=== PATIENT | male | born 1970 | race Caucasian/White ===

== ENCOUNTER → 2020-03-13 09:08 | Outpatient (BNVA) | payer MEDICARE, MEDICAID, SELFPAY | PROVIDERS: Visit Provider Social Worker | DX: F43.12 Post-traumatic stress disorder, chronic (principal); F33.2 Major depressive disorder, recurrent severe without psychotic features | CPT/HCPCS: 90834 ==

== ENCOUNTER → 2020-04-05 07:32 | Outpatient (BNVA) | payer MEDICARE, MEDICAID, SELFPAY | PROVIDERS: Visit Provider Nurse Practitioner Psychiatric/Mental Health | DX: Z63.4 Disappearance and death of family member (principal); F33.2 Major depressive disorder, recurrent severe without psychotic features; F43.12 Post-traumatic stress disorder, chronic; F41.0 Panic disorder [episodic paroxysmal anxiety] | CPT/HCPCS: 99214 ==

== ENCOUNTER → 2020-08-13 07:32 | Outpatient (BNVA) | payer MEDICARE, MEDICAID, SELFPAY | PROVIDERS: Visit Provider Nurse Practitioner Psychiatric/Mental Health | DX: F33.2 Major depressive disorder, recurrent severe without psychotic features (principal); F43.12 Post-traumatic stress disorder, chronic; F41.0 Panic disorder [episodic paroxysmal anxiety]; Z63.4 Disappearance and death of family member | CPT/HCPCS: 99214 ==

== ENCOUNTER → 2020-08-28 07:35 | Outpatient (BNVA) | payer MEDICARE, MEDICAID, SELFPAY | PROVIDERS: Visit Provider Nurse Practitioner Psychiatric/Mental Health | DX: F33.2 Major depressive disorder, recurrent severe without psychotic features (principal); F43.12 Post-traumatic stress disorder, chronic; F41.0 Panic disorder [episodic paroxysmal anxiety]; Z63.4 Disappearance and death of family member; F41.1 Generalized anxiety disorder | CPT/HCPCS: 99214 ==

== ENCOUNTER → 2020-10-11 07:29 | Outpatient (BNVA) | payer MEDICARE, MEDICAID, SELFPAY | PROVIDERS: Visit Provider Nurse Practitioner Psychiatric/Mental Health | DX: F33.2 Major depressive disorder, recurrent severe without psychotic features (principal); F43.12 Post-traumatic stress disorder, chronic; F41.0 Panic disorder [episodic paroxysmal anxiety]; Z63.4 Disappearance and death of family member | CPT/HCPCS: 99214 ==

== ENCOUNTER → 2021-03-14 07:33 | Outpatient (BNVA) | payer MEDICARE, MEDICAID, SELFPAY | PROVIDERS: Visit Provider Nurse Practitioner Psychiatric/Mental Health | DX: F33.2 Major depressive disorder, recurrent severe without psychotic features (principal); F43.12 Post-traumatic stress disorder, chronic; F41.0 Panic disorder [episodic paroxysmal anxiety]; Z63.4 Disappearance and death of family member | CPT/HCPCS: 99214 ==

== ENCOUNTER → 2021-04-18 07:23 | Outpatient (BNVA) | payer MEDICARE, MEDICAID, SELFPAY | PROVIDERS: Visit Provider Nurse Practitioner Psychiatric/Mental Health | DX: F33.2 Major depressive disorder, recurrent severe without psychotic features (principal); F43.12 Post-traumatic stress disorder, chronic; F41.0 Panic disorder [episodic paroxysmal anxiety]; Z63.4 Disappearance and death of family member | CPT/HCPCS: 99214 ==

== ENCOUNTER → 2021-06-06 07:19 | Outpatient (BNVA) | payer MEDICARE, MEDICAID, SELFPAY | PROVIDERS: Visit Provider Nurse Practitioner Psychiatric/Mental Health | DX: F33.2 Major depressive disorder, recurrent severe without psychotic features (principal); F43.12 Post-traumatic stress disorder, chronic; F41.0 Panic disorder [episodic paroxysmal anxiety]; Z63.4 Disappearance and death of family member | CPT/HCPCS: 99214 ==

== ENCOUNTER 2021-11-20 15:09 | Emergency (ER) | payer MEDICARE, MEDICAID, SELFPAY ==
[2021-11-20 15:17] VITALS: BP 121/92; PULSE 85; RESP 22; TEMP 37; O2SAT 93; BMI 26.1
[2021-11-20 15:21] VITALS: BMI 26.1
[2021-11-20 15:30] VITALS: BP 121/92; PULSE 85; RESP 22; TEMP 37; O2SAT 93
--- NOTE | 2021-11-20 15:31 | XR_ITS ---
WS: [email or web address] XR ankle RT 2V 52931 REASON FOR EXAM: ankle pain FINDINGS: No fracture or focal bone lesion. The ankle mortise is relatively well preserved. No soft tissue abnormality. No significant interval change compared to 05/30/2017. XR/XR ankle RT 2V 25745 IMPRESSION: No acute abnormality.
--- NOTE | 2021-11-20 15:31 | XR_ITS ---
WS: [email or web address] XR tibia fibula RT 2V 65652 REASON FOR EXAM: pain R tib/fib proximal FINDINGS: No fracture or focal bone lesion. No periosteal reaction. No soft tissue abnormality. XR/XR tibia fibula RT 2V 68363 IMPRESSION: No significant abnormality.
--- NOTE | 2021-11-20 15:31 | XR_ITS ---
WS: [email or web address] XR chest 2V* [id number] REASON FOR EXAM: chest pain FINDINGS: The chest is unchanged compared to 05/30/2017. The heart and mediastinum are within normal limits. Calcified granulomatous disease is seen bilaterally. No acute pulmonary parenchymal or pleural abnormality is identified. The bony thorax is intact. XR/XR chest 2V* [id number] IMPRESSION: No acute chest abnormality.
--- NOTE | 2021-11-20 15:31 | XR_ITS ---
WS: [email or web address] XR knee RT 1-2V 35776 REASON FOR EXAM: knee pain FINDINGS: No fracture or focal bone lesion. The medial knee joint spaces mildly narrowed. No significant osteophytic spurring or subchondral bony change. Mild narrowing of the lateral knee joint space with small marginal osteophytes. Mild narrowing of the patellofemoral joint space with small osteophytes of the patella and femur. Examination is unchanged compared to previous study of 05/30/2017. XR/XR knee RT 1-2V 84553 IMPRESSION: No acute abnormality. Mild osteoarthropathy stable compared to 05/30/2017.
--- NOTE | 2021-11-20 15:31 | ECG_ITS ---
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
--- NOTE | 2021-11-20 15:33 | CTR_ITS ---
PROCEDURE INFORMATION: Exam: CT Abdomen And Pelvis With Contrast Exam date and time: 11/20/2021 3:33 PM Age: 51 years old Clinical indication: Nausea and vomiting and other: Blood in stool; Abdominal pain; Localized; Right; Prior surgery; Surgery type: Back, appy; Additional info: R sided abd pain TECHNIQUE: Imaging protocol: Computed tomography of the abdomen and pelvis with contrast. Radiation optimization: All CT scans at this facility use at least one of these dose optimization techniques: automated exposure control; mA and/or kV adjustment per patient size (includes targeted exams where dose is matched to clinical indication); or iterative reconstruction. Contrast material: OMNI 300; Contrast volume: 95 ml; Contrast route: INTRAVENOUS (IV); COMPARISON: No relevant prior studies available. RADIATION DOSE METRICS: Total DLP (mGy-cm): 1368.75 FINDINGS: Lungs: Lung bases are clear. Liver: The liver is normal. Gallbladder and bile ducts: The gallbladder is decompressed. The wall is diffusely thickened and hyperdense. Possible hyperplastic cholecystosis. There is no pericholecystic edema. There is no intrahepatic or extrahepatic bile duct dilation. No sign of acute cholecystitis. Pancreas: The pancreas is unremarkable. Spleen: The spleen is unremarkable. Adrenal glands: The adrenal glands are unremarkable. Kidneys and ureters: The kidneys are unremarkable. No hydronephrosis or stones. No ureteral dilation. Stomach and bowel: The stomach is unremarkable. The small bowel is nondilated. The colon is unremarkable. Appendix: The appendix is absent. Intraperitoneal space: There is no free air or significant intraperitoneal free fluid. Vasculature: There is moderate aortic atherosclerotic disease. The portal, splenic and superior mesenteric veins are patent. Lymph nodes: There is no lymphadenopathy in the retroperitoneum, mesentery, pelvis or inguinal regions. Urinary bladder: There is a tiny punctate calcification in the dependent portion of the bladder. See series 2, image 78. There is mild diffuse bladder wall thickening suggesting muscular hypertrophy. Reproductive: The prostate and seminal vesicles are unremarkable. Bones/joints: There are chronic bilateral L5 pars defects without spondylolisthesis. Severe degenerative disease at both hips. The pelvis and proximal femora are intact. Soft tissues: The abdominal wall is intact. CT/CT abdomen pelvis w con* [id number] IMPRESSION: 1. No acute findings. 2. Incidental findings above.
--- NOTE | 2021-11-20 15:43 | W.ED.GENADLT ---
HPI - General Adult General: Chief complaint: Abdominal Pain Stated complaint: R ABD PAIN Time Seen by Provider: 11/20/21 15:12 History of Present Illness: HPI narrative: Patient is a 51-year-old male with a history of DM2 who presents emergency room after an episode of fall at home at 1:30 PM. She complains of right knee tib-fib and ankle pain. Patient tells me that he did not hit his head. Patient is on a blood thinner. Patient has not had any issue with ambulation on the R leg after the all. In addition, patient reports 2 weeks of right-sided abdominal pain radiating to his chest associated with nausea/vomiting worse with meal intake.. Patient has no exertional chest pain, shortness breath, palpitation, pleuritic chest pain, diarrhea, melena masses. Patient denies any prior history cardiac issues, family history of cardiac disease, no history of VTE's, no history of smoking. Onset: 2 hrs ago acutely (R knee/R leg/R ankle pain), and 2 weeks of R sided abdominal pain w/ N/V Duration:ongoing Location:home Severity:moderate Associated symptoms: Reports nausea and vomiting; Deny chest pain, dyspnea, rash or palpitations Review of Systems Const: Denies: fever(s) or chills Eyes: Denies: change in vision ENMT: Denies: mouth pain Card: Denies: chest pain or palpitations Resp: Denies: dyspnea or non-productive cough GI: Reports: abdominal pain (R abdominal/flank), nausea and vomiting; Denies: diarrhea : Denies: dysuria Musc: Reports: extremity pain (+R knee, R leg, and R ankle pain) Skin/Breast: Denies: rash or new lesions Neuro: Denies: weakness in extremities Psych: Reports: other (Normal mood) Manjinder/Lymph: Denies: easy bruising PFSH ED PFSH: Medical History Bereavement Sudden loss of mother on 03/18/20 Loss of brother Chronic post-traumatic stress disorder (PTSD) Major depressive disorder, recurrent severe without psychotic features Panic disorder without agoraphobia Psychiatric care Family History Denies family history of CAD (coronary artery disease) Social History Smoking and tobacco status: current every day smoker Alcohol intake: never Physical Exam Const: COMMON NORMALS: alert HENMT: COMMON NORMALS: atraumatic HEAD & SCALP: atraumatic MOUTH: moist mucous membranes not abnormal Eye: COMMON NORMALS: EOMs intact bilaterally and conjunctivae normal CONJUNCTIVA: Yes conjunctivae normal Neck/C-Spine: COMMON NORMALS: full ROM and supple Resp: COMMON NORMALS: normal respiratory effort and clear to auscultation bilaterally AUSCULTATION: clear to auscultation bilaterally Cardio: COMMON NORMALS: regular rate RATE: regular rate GI: COMMON NORMALS: Soft to palpation; negative for non-tender (mild R flank tenderness to palpation, no guarding or rebound tenderness) PALPATION: Yes Soft to palpation Extremity: COMMON NORMALS: full ROM (full ROM of the R knee and R ankle) NARRATIVE EXTREMITY EXAM: + Mild tenderness to palpation over the right knee, no knee ecchymosis or swelling noted on the right side, mild proximal tibial tenderness to palpation plus mild medial and lateral ankle tenderness palpation no foot tenderness palpation, neurovascular exam intact in the right lower extremity. No obvious gross deformity. No obvious bruises. Range of motion of the right hip intact. Neuro: SENSORIUM/ORIENTATION: Yes alert MOTOR EXAM: No Abnormal motor strength present and Other motor observations present (no focal motor deficits) Psych: COMMON NORMALS: speech normal SPEECH: Yes normal speech MOOD & AFFECT: Yes euthymic mood Course Vital Signs: Vital signs: Vital Signs Temperature 98.6 F 11/20/21 18:27 Pulse Rate 81 11/20/21 18:27 Respiratory Rate 20 H 11/20/21 18:27 Blood Pressure 121/92 11/20/21 18:27 Pulse Oximetry 95 11/20/21 18:27 MDM - General Adult MDM Narrative: Medical decision making narrative: 51-year-old male presented to the emergency room with complaints of fall with complaints of right knee tib-fib ankle pain. Patient was has right-sided flank pain. Work-up today including x-rays negative for any acute finding. Lab work-up did not show any signs of acute pathology. CT abdomen pelvis also negative for any acute pathology. Delta troponin less than 5, EKG is nonischemic. No suspicion for ACS at this time for his R sided abd pain radiating to the chest. Patient tolerated p.o. without difficulty in emergency room. Patient is instructed return to the ED for any worsening pain as he may need another x-ray to rule out occult fracture. Disposition: Discharge. Patient counseled regarding diagnostic impression, treatment plan. Patient given ED strict return precautions to return for continuation, worsening, or development of new symptoms. Instructed to f/u w/ PCP regarding symptoms today. Patient verbalized understanding. Lab Data: Labs: Lab Results 11/20/21 11/20/21 11/20/21 16:01 16:01 16:01 WBC 10.0 10^3/uL 10^3 /uL (4.0-10.0) RBC 4.97 10^6/uL 10^6 /uL (4.1-5.3) Hgb 15.9 g/dL g/dL (11.7-16.6) Hct 47.7 % % (42.0-52.0) MCV 96.0 fl H fl (80-94) MCH 32.0 pg pg (28.0-34.0) MCHC 33.3 g/dL g/dL (30.0-36.0) RDW 13.2 % % (12.1-15.1) Plt Count 224 10^3/cmm 10^3 /cmm (130-400) MPV 10.4 fL fL (7.4-10.4) Neut % (Auto) 61.1 % % Lymph % (Auto) 26.3 % % [place] % (Auto) 6.8 % % Eos % (Auto) 4.3 % % Baso % (Auto) 1.0 % % Neut # (Auto) 6.13 10^3/uL 10^3 /uL (1.8-7.7) Lymph # (Auto) 2.6 10^3/uL 10^3/ uL (0.8-4.8) [place] # (Auto) 0.7 10^3/uL 10^3/ uL (0.2-0.9) Eos # (Auto) 0.4 10^3/uL 10^3/ uL (0.0-0.8) Baso # (Auto) 0.1 10^3/uL 10^3/ uL (0.0-0.1) Nucleated RBC % (a uto) 0 % % Nucleated RBCs # 0.0 /100WBC /100W BC Sodium 137 mmol/L mmol/L (136-145) Potassium 4.5 mmol/L mmol/L (3.5-5.1) Chloride 102 mmol/L mmol/L (98-107) Carbon Dioxide 22 mmol/L mmol/L (22-29) Anion Gap 17.5 (5-19) BUN 6 mg/dL mg/dL (6-20) Creatinine 0.6 mg/dL L mg/dL (0.7-1.2) GFR Calculation 142.0 mL/min H mL /min (90-130) Glucose 128 mg/dL H mg/dL (65-115) Calculated Osmolal ity 283 mOsm/kg L mOs m/kg (285-295) Calcium 8.3 mg/dL L mg/dL (8.5-10.5) Total Bilirubin 0.2 mg/dL mg/dL (0.15-1.2) AST 20 U/L U/L (0-40) ALT 17 U/L U/L (0-41) Alkaline Phosphata se 96 IU/L IU/L (40-130) Troponin T Gen 5 n g/L 20 ng/L H ng/L (0-15) Troponin T Baselin e Total Protein 6.5 g/dL L g/dL (6.6-8.7) Albumin 3.5 g/dL g/dL (3.5-5.2) Globulin 3.0 g/dL g/dL (1.3-4.6) Lipase 34 U/L U/L (13-60) 11/20/21 17:12 WBC RBC Hgb Hct MCV MCH MCHC RDW Plt Count MPV Neut % (Auto) Lymph % (Auto) [place] % (Auto) Eos % (Auto) Baso % (Auto) Neut # (Auto) Lymph # (Auto) [place] # (Auto) Eos # (Auto) Baso # (Auto) Nucleated RBC % (a uto) Nucleated RBCs # Sodium Potassium Chloride Carbon Dioxide Anion Gap BUN Creatinine GFR Calculation Glucose Calculated Osmolal ity Calcium Total Bilirubin AST ALT Alkaline Phosphata se Troponin T Gen 5 n g/L Troponin T Baselin e 23 ng/L H ng/L (0-15) Total Protein Albumin Globulin Lipase Imaging Data^: Other Imaging: Radiologist's impression: [place] [address] [address].[place], [place] [address]PAam ReportSigned Patient: Mert Spain #: [id number]: 1970Acct#:[id number]/Sex: 51 / MADM Date: 11/20/21Loc: ERRoom/Bed:Attending Dr: Ordering Provider/Ordering MD: Leydi Iyer MD Date of Service: 11/20/21 Procedure(s): XR tibia fibula RT 2V 12935 Accession Number(s): [id number] Report Number: [id number] WS: [email or web address] XR tibia fibula RT 2V 27341 REASON FOR EXAM: pain R tib/fib proximal FINDINGS: No fracture or focal bone lesion. No periosteal reaction. No soft tissue abnormality. XR/XR tibia fibula RT 2V 00077 IMPRESSION: No significant abnormality. Dictated By:Lane Love Jr MDSigned By:Lane Love Jr MDSigned Date/Time:11/20/21 1558DD/ [address] [facility] [address].[place], [place] [address]KRwr ReportSigned Patient: Mert Spain #: [id number]: 1970Acct#:[id number]/Sex: 51 / MADM Date: 11/20/21Loc: ERRoom/Bed:Attending Dr: Ordering Provider/Ordering MD: Leydi Iyer MD Date of Service: 11/20/21 Procedure(s): XR knee RT 1-2V 51774 Accession Number(s): [id number] Report Number: [id number] WS: [email or web address] XR knee RT 1-2 15034 REASON FOR EXAM: knee pain FINDINGS: No fracture or focal bone lesion. The medial knee joint spaces mildly narrowed. No significant osteophytic spurring or subchondral bony change. Mild narrowing of the lateral knee joint space with small marginal osteophytes. Mild narrowing of the patellofemoral joint space with small osteophytes of the patella and femur. Examination is unchanged compared to previous study of 05/30/2017. XR/XR knee RT 1-2V 36801 IMPRESSION: No acute abnormality. Mild osteoarthropathy stable compared to 05/30/2017. Dictated By:Lane Love Jr MDSigned By:Lane Love Jr MDSigned Date/Time:11/20/21 1556DD/ [address], [place] [address]VIln ReportSigned Patient: Mert Spain #: [id number]: 1970Acct#:[id number]/Sex: 51 / MADM Date: 11/20/21Loc: ERRoom/Bed:Attending Dr: Ordering Provider/Ordering MD: Leydi Iyer MD Date of Service: 11/20/21 Procedure(s): XR chest 2V* 37455 Accession Number(s): [id number] Report Number: [id number] WS: [email or web address] XR chest 2V* 86600 REASON FOR EXAM: chest pain FINDINGS: The chest is unchanged compared to 05/30/2017. The heart and mediastinum are within normal limits. Calcified granulomatous disease is seen bilaterally. No acute pulmonary parenchymal or pleural abnormality is identified. The bony thorax is intact. XR/XR chest 2V* 17407 IMPRESSION: No acute chest abnormality. Dictated By:Lane Love Jr MDSigned By:Lane Love Jr MDSigned Date/Time:11/20/21 1546DD/ [address], [place] [address]XNxo ReportSigned Patient: Mert Spain #: [id number]: 1970Acct#:[id number]/Sex: 51 / MADM Date: 11/20/21Loc: ERRoom/Bed:Attending Dr: Ordering Provider/Ordering MD: Leydi Iyer MD Date of Service: 11/20/21 Procedure(s): XR ankle RT 2V 92668 Accession Number(s): [id number] Report Number: [id number] WS: [email or web address] XR ankle RT 2V 10818 REASON FOR EXAM: ankle pain FINDINGS: No fracture or focal bone lesion. The ankle mortise is relatively well preserved. No soft tissue abnormality. No significant interval change compared to 05/30/2017. XR/XR ankle RT 2V 13379 IMPRESSION: No acute abnormality. Dictated By:Lane Love Jr MDSigned By:Lane Love Jr MDSigned Date/Time:11/20/21 1602DD/ 15[address] [facility] [place], [place] [address]ZJ Scan ReportSigned Patient: Mert Spain MUnit #: [id number]: 1970Acct#:[id number]/Sex: 51 / MADM Date: 11/20/21Loc: ERRoom/Bed:Attending Dr: Ordering Provider/Ordering MD: Leydi Iyer MD Date of Service: 11/20/21 Procedure(s): CT abdomen pelvis w con* 26247 Accession Number(s): [id number] Report Number: [id number] PROCEDURE INFORMATION: Exam: CT Abdomen And Pelvis With Contrast Exam date and time: 11/20/2021 3:33 PM Age: 51 years old Clinical indication: Nausea and vomiting and other: Blood in stool; Abdominal pain; Localized; Right; Prior surgery; Surgery type: Back, appy; Additional info: R sided abd pain TECHNIQUE: Imaging protocol: Computed tomography of the abdomen and pelvis with contrast. Radiation optimization: All CT scans at this facility use at least one of these dose optimization techniques: automated exposure control; mA and/or kV adjustment per patient size (includes targeted exams where dose is matched to clinical indication); or iterative reconstruction. Contrast material: OMNI 300; Contrast volume: 95 ml; Contrast route: INTRAVENOUS (IV); COMPARISON: No relevant prior studies available. RADIATION DOSE METRICS: Total DLP (mGy-cm): 1368.75 FINDINGS: Lungs: Lung bases are clear. Liver: The liver is normal. Gallbladder and bile ducts: The gallbladder is decompressed. The wall is diffusely thickened and hyperdense. Possible hyperplastic cholecystosis. There is no pericholecystic edema. There is no intrahepatic or extrahepatic bile duct dilation. No sign of acute cholecystitis. Pancreas: The pancreas is unremarkable. Spleen: The spleen is unremarkable. Adrenal glands: The adrenal glands are unremarkable. Kidneys and ureters: The kidneys are unremarkable. No hydronephrosis or stones. No ureteral dilation. Stomach and bowel: The stomach is unremarkable. The small bowel is nondilated. The colon is unremarkable. Appendix: The appendix is absent. Intraperitoneal space: There is no free air or significant intraperitoneal free fluid. Vasculature: There is moderate aortic atherosclerotic disease. The portal, splenic and superior mesenteric veins are patent. Lymph nodes: There is no lymphadenopathy in the retroperitoneum, mesentery, pelvis or inguinal regions. Urinary bladder: There is a tiny punctate calcification in the dependent portion of the bladder. See series 2, image 78. There is mild diffuse bladder wall thickening suggesting muscular hypertrophy. Reproductive: The prostate and seminal vesicles are unremarkable. Bones/joints: There are chronic bilateral L5 pars defects without spondylolisthesis. Severe degenerative disease at both hips. The pelvis and proximal femora are intact. Soft tissues: The abdominal wall is intact. CT/CT abdomen pelvis w con* [id number] IMPRESSION: 1. No acute findings. 2. Incidental findings above. Dictated By:Gordo Bertrandigned By:Gordo Bertrandigned Date/Time:11/20/21 1727DD/ 1533 Discharge Plan Discharge Patient Disposition: Home Clinical Impression: Acute knee pain, Abdominal pain, Acute ankle pain, Acute leg pain, Chest pain Condition: Stable Prescriptions: New acetaminophen 500 mg tablet 500 mg PO Q6H PRN (Reason: pain) 5 Days Qty: 20 RF: 0 orphenadrine citrate 100 mg tablet extended release 100 mg PO BID PRN (Reason: pain) 10 Days Qty: 20 RF: 0 Maalox Advanced 1,000-60 mg tablet,chewable 1 tab PO TID PRN (Reason: abdominal pain) 7 Days Qty: 21 RF: 0 Pepcid 20 mg tablet 20 mg PO BID PRN (Reason: abdominal pain) 10 Days Qty: 20 RF: 0 No Action morphine 60 mg tablet extended release 60 mg PO Q12H RF: 0 morphine 15 mg tablet extended release 15 mg PO Q12H RF: 0 gabapentin 800 mg tablet 800 mg PO QID RF: 0 metoprolol tartrate 50 mg tablet 50 mg PO BID RF: 0 tamsulosin [Flomax] 0.4 mg capsule 0.4 mg PO DAILY RF: 0 fluoxetine [Prozac] 40 mg capsule 40 mg PO QAM Qty: 30 RF: 3 prazosin 2 mg capsule 8 mg PO .QHS Qty: 120 RF: 3 quetiapine [Seroquel] 400 mg tablet 400 mg PO .9 pm Qty: 30 RF: 3 quetiapine [Seroquel] 100 mg tablet 100 mg PO BID Qty: 60 RF: 3 Discharge Orders: Discharge ED (Routine); Ordered 11/20/21 Ordered By: Leydi Iyer Discharge Diet: Advance as tolerated Discharge Activity: Resume usual activity Patient Instructions: Abdominal Pain (ED), Knee Pain (ED) Activity Restrictions/Additional Instructions: Our case folder will have you follow-up with a primary care doctor in the next few days. You would be expected to have a phone call with our case folder who will put you on the schedule. Take your medicine as instructed. Come back to the emergency room have any worsening chest pain, abdominal pain, knee pain, or any new or concerning complaints. Stand Alone Forms: Work/School Release Coding Level of Care Code ED Industrial Roofer for Maria Esther Fwrosa Exam Comprehensive
[2021-11-20 16:07] LABS: Basophils # 0.1 10^3/uL (0.0-0.1); Eosinophils # 0.4 10^3/uL (0.0-0.8); Eosinophils % 4.3 %; Hematocrit 47.7 % (42.0-52.0); Hemoglobin 15.9 g/dL (11.7-16.6); Lymphocytes # 2.6 10^3/uL (0.8-4.8); Lymphocytes % 26.3 %; Mean Corpuscular HGB Conc 33.3 g/dL (30.0-36.0); Mean Platelet Volume 10.4 fL (7.4-10.4); Monocytes # 0.7 10^3/uL (0.2-0.9); Monocytes % 6.8 %; Neutrophils # 6.13 10^3/uL (1.8-7.7); Neutrophils % 61.1 %; Nucleated Red Blood Cells % 0 %; Platelet Count 224 10^3/cmm (130-400); Red Blood Count 4.97 10^6/uL (4.1-5.3); Red Cell Distribution Width 13.2 % (12.1-15.1)
[2021-11-20] MEDS: lidocaine 2% viscous 15 ML, aluminum-mag hydrox-simethicon 30 ML, sucralfate oral liq 1 GM PO (16:13)
[2021-11-20] MEDS: acetaminophen 500 mg Tablet PO (16:14)
[2021-11-20 16:48] LABS: Troponin T (5th) Once 20 ng/L (0-15)
[2021-11-20 16:49] LABS: Alanine Aminotransferase 17 U/L (0-41); Albumin Level 3.5 g/dL (3.5-5.2); Alkaline Phosphatase 96 IU/L (40-130); Blood Urea Nitrogen 6 mg/dL (6-20); Calcium 8.3 mg/dL (8.5-10.5); Carbon Dioxide 22 mmol/L (22-29); Chloride 102 mmol/L (98-107); Glucose 128 mg/dL (65-115); Lipase 34 U/L (13-60); Osmolality Calculated 283 mOsm/kg (285-295); Sodium 137 mmol/L (136-145); Total Bilirubin 0.2 mg/dL (0.15-1.2); Total Protein 6.5 g/dL (6.6-8.7)
[2021-11-20 16:52] LABS: Creatinine Clr Calc Pharmacy 148.8426
[2021-11-20 16:53] LABS: Anion Gap 17.5 (5-19); Aspartate Amino Transferase 20 U/L (0-40); Potassium 4.5 mmol/L (3.5-5.1)
[2021-11-20] MEDS: iohexol 300 mg/mL 100 mL Btl IV (16:55)
--- NOTE | 2021-11-20 17:07 | ECG_ITS ---
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
[2021-11-20 17:45] LABS: Troponin(5th) Baseline 23 ng/L (0-15)
[2021-11-20 18:27] VITALS: BP 121/92; PULSE 81; RESP 20; TEMP 37; O2SAT 95
== END 2021-11-20 18:29 | disposition home or self-care (01) ==
PROVIDERS: Emergency Provider Emergency Medicine
DX: R10.9 Unspecified abdominal pain (principal); R07.9 Chest pain, unspecified; M25.561 Pain in right knee; M25.571 Pain in right ankle and joints of right foot; M79.604 Pain in right leg; F17.210 Nicotine dependence, cigarettes, uncomplicated
CPT/HCPCS: 36415; 71046; 73560; 73590; 73600; 74177; 80053; 83690; 84484; 85025; 93005; 99283; Q9967

== ENCOUNTER → 2021-12-19 07:43 | Outpatient (BNVA) | payer MEDICARE, MEDICAID, SELFPAY | PROVIDERS: Visit Provider Nurse Practitioner Psychiatric/Mental Health | DX: F33.2 Major depressive disorder, recurrent severe without psychotic features (principal); F43.12 Post-traumatic stress disorder, chronic; F41.0 Panic disorder [episodic paroxysmal anxiety]; Z79.899 Other long term (current) drug therapy; Z63.4 Disappearance and death of family member | CPT/HCPCS: 99214 ==

== ENCOUNTER → 2022-03-13 06:58 | Outpatient (BNVA) | payer MEDICARE, MEDICAID, SELFPAY | PROVIDERS: Visit Provider Nurse Practitioner Psychiatric/Mental Health | DX: F43.12 Post-traumatic stress disorder, chronic (principal); Z63.4 Disappearance and death of family member; Z79.899 Other long term (current) drug therapy; F33.2 Major depressive disorder, recurrent severe without psychotic features; F41.0 Panic disorder [episodic paroxysmal anxiety] | CPT/HCPCS: 99214 ==

== ENCOUNTER 2022-08-03 16:10 | Emergency (ER) | payer MEDICARE, MEDICAID, SELFPAY ==
[2022-08-03 16:15] VITALS: BP 118/88; PULSE 79; RESP 18; TEMP 36.8; O2SAT 97; BMI 26.1
--- NOTE | 2022-08-03 16:34 | USR_ITS ---
PROCEDURE INFORMATION: Exam: US Scrotum Exam date and time: 08/03/2022 5:09 PM Age: 52 years old Clinical indication: Groin pain; Prior surgery; Surgery date: 6+ months; Surgery type: Unknown; Additional info: Testicle pain TECHNIQUE: Imaging protocol: Real-time ultrasound of the scrotum and contents with color Doppler and image documentation. COMPARISON: CT abdomen pelvis w con* [id number] 11/20/2021 4:53 PM FINDINGS: Right testicle: Hypoechoic echogenicity without focal lesions. No mass. No torsion. Normal vascular flow. Right testicle measures 3.9 cm x 3.9 cm x 2.8 cm Left testicle: A small cyst 5.8 mm x 5.4 mm x 7.4 mm No mass. No torsion. Normal vascular flow. Left measures 2.4 cm x 2 cm x 2.8 cm Epididymides: Small heterogenous Left 6.6 mm x 6.5 mm x 5.3 mm. Right epididymis 10.6 mm x 7.2 mm x 11 mm Scrotum: Unremarkable US/US scrotum [id number] IMPRESSION: 1. Benign cyst left testicle. 2. Asymmetric size the right testicle is larger than the left. 3. Negative bilateral epididymis
[2022-08-03 17:00] LABS: Add Urine Microscopic? NO; Charge for UA Resulting for Rev
[2022-08-03 17:01] LABS: Bilirubin Urine Neg (Negative); Blood Urine Neg (Negative); Glucose Urine UA Norm (Normal); Ketones Urine Negative (Negative); Leukocyte Esterase Urine Negative (Negative); Nitrate Urine Negative (Negative); Protein Urine Neg (Negative); Specific Gravity, Urine 1.015 (1.005-1.030); Urine Appearance Clear (CLEAR); Urine Color Yellow (Yellow); Urobilinogen Urine Norm (Negative); pH Urine 6 (5-7)
[2022-08-03 17:24] VITALS: RESP 16
[2022-08-03] MEDS: HYDROmorphone 1 mg/mL INJ 1 mL IVP (17:24)
--- NOTE | 2022-08-03 17:32 | CTR_ITS ---
PROCEDURE INFORMATION: Exam: CT Abdomen And Pelvis Without Contrast Exam date and time: 08/03/2022 6:08 PM Age: 52 years old Clinical indication: Other: Left testicular pain; Other: Flank and testicle; Additional info: Left flank pain TECHNIQUE: Imaging protocol: Computed tomography of the abdomen and pelvis without contrast. Radiation optimization: All CT scans at this facility use at least one of these dose optimization techniques: automated exposure control; mA and/or kV adjustment per patient size (includes targeted exams where dose is matched to clinical indication); or iterative reconstruction. COMPARISON: CT abdomen pelvis w con* [id number] 11/20/2021 4:53 PM RADIATION DOSE METRICS: Total DLP (mGy-cm): 639.28 FINDINGS: Limitations: The absence of intravenous contrast lessens the sensitivity of this study for solid organ abnormalities. Lungs: There is some subpleural emphysematous blebs at the lung bases. Liver: There is no focal abnormality within the liver. Gallbladder and bile ducts: The gallbladder is normal. Pancreas: The pancreas is normal. Spleen: The spleen is normal. Adrenal glands: The adrenal glands are normal. Kidneys and ureters: The kidneys are normal. There is no evidence of hydronephrosis. There is no evidence of renal or ureteral calcifications. Calcifications associated with each kidney are most likely vascular. Stomach and bowel: Unremarkable. No obstruction. No mucosal thickening. Appendix: No evidence of appendicitis. Intraperitoneal space: Unremarkable. No free air. No significant fluid collection. Vasculature: The aorta demonstrates mild atherosclerotic calcification. There is no evidence of an abdominal aortic aneurysm. Lymph nodes: There is no evidence of lymphadenopathy. Urinary bladder: There is nonspecific thickening of the urinary bladder wall not changed from previous. This could represent muscular hypertrophy of the urinary bladder. Reproductive: The prostate demonstrates moderate nonspecific enlargement. The seminal vesicles are normal. Bones/joints: There are stable postsurgical changes in the lower lumbar spine. Bilateral L5 spondylolysis not significantly changed. Soft tissues: There is small umbilical hernia containing only fat. CT/CT kidney stone [id number] IMPRESSION: No acute finding.
--- NOTE | 2022-08-03 17:33 | ED_ITS ---
HPI - Male Genitourinary General: Chief complaint: Urogenital-Male Stated complaint: TESTICLE PAIN Time Seen by Provider: 08/03/22 17:32 History of Present Illness: 52-year-old male patient comes in today for complaints of left testicle/inguinal pain. Patient reports discomfort since last week in which he was seen by his primary care physician and started on antibiotics for possible urinary tract infection. Patient reported waxing and waning of pain since that time. Patient at first thought he might have just strained himself but his primary care thought there might be a urinary tract infection such as epididymitis. Patient appears nontoxic. Patient appears in moderate pain. Patient was brought in by EMS due to difficulty obtaining a ride to the ER. Patient has a history of diabetes mellitus, PTSD, chronic pain, and testicular cancer. Associated symptoms: Reports nausea and vomiting Review of Systems Const: Denies: fever(s) Card: Denies: chest pain Resp: Denies: dyspnea GI: Reports: nausea and vomiting : Reports: flank pain and testicular pain Musc: Denies: neck pain Skin/Breast: Denies: rash PFSH ED PFSH: Medical History Bereavement Sudden loss of mother on 03/18/20 Loss of brother Chronic post-traumatic stress disorder (PTSD) Major depressive disorder, recurrent severe without psychotic features Panic disorder without agoraphobia Psychiatric care Family History Denies family history of CAD (coronary artery disease) Social History Smoking and tobacco status: current every day smoker Alcohol intake: never Physical Exam Const: COMMON NORMALS: alert HENMT: COMMON NORMALS: normocephalic HEAD & SCALP: normocephalic MOUTH: Normal oral and palatal mucosa present Neck/C-Spine: COMMON NORMALS: full ROM Lymph: LYMPHATIC: No lymphadenopathy Resp: COMMON NORMALS: normal respiratory effort Cardio: COMMON NORMALS: regular rate and regular rhythm RATE: regular rate RHYTHM: regular rhythm GI: AUSCULTATION: Yes normoactive bowel sounds PALPATION: Yes Tenderness to palpation present (GI) Details: LLQ : BLADDER/KIDNEY EXAM: Yes CVA tenderness on the left TESTES: Yes testicular lie normal and No testicular swelling Back/Pelvis: GENERAL BACK: Yes CVA tenderness Extremity: COMMON NORMALS: normal to inspection Neuro: SENSORIUM/ORIENTATION: Yes alert Skin: COMMON NORMALS: turgor normal GENERAL SKIN EXAM: turgor normal Course Vital Signs: Vital signs: Vital Signs Temperature 98.2 F 08/03/22 16:15 Pulse Rate 79 08/03/22 16:15 Respiratory Rate 16 08/03/22 17:24 Blood Pressure 118/88 08/03/22 16:15 Pulse Oximetry 97 08/03/22 16:15 Oxygen Delivery Me thod 08/03/22 16:15 MDM - Male Medical Decision Making 52-year-old male patient comes in today for complaints of left flank pain ra diating to the testicle and inguinal area. Patient has had pain for about 1 week now. Patient reports treatment with antibiotics for 5 days completing on Wednesday. Patient does have a history of testicular cancer. On exam patient's have bilateral descended testicles with some tenderness in the left testicle. No obvious swelling or redness is noted to the scrotum or surrounding tissue. Patient does have some positive CVA tenderness on the left side. Abdomen soft with some mild tenderness in the left lower quadrant. Vital signs are normal. Differential diagnosis includes but not limited to renal calculi, epididymitis, hernia, diverticulitis, testicular torsion. Urinalysis was unremarkable. Ultrasound of the scrotum showed blood flow to both testicles but reduced size on the left. CT of the abdomen pelvis noted no renal stone, bowel obstruction, or diverticulitis. Recommend patient follow-up with primary care or specialist for further evaluation. No signs of serious illness or injury was noted on this exam or acute surgical abdomen. Patient reported understanding of care plan need for follow-up or return to the ER. Lab Data : 08/03/22 17:39 Radiology Impressions Scrotum Ultrasound 08/03/22 16:34 IMPRESSION: 1. Benign cyst left testicle. 2. Asymmetric size the right testicle is larger than the left. 3. Negative bilateral epididymis Abdomen/Pelvis CT 08/03/22 17:32 IMPRESSION: No acute finding. Laboratory Results WBC 8.6 10^3/uL (4.0-10.0) 08/03/22 17:39 RBC 4.91 10^6/uL (4.1-5.3) 08/03/22 17:39 Hgb 15.6 g/dL (11.7-16.6) 08/03/22 17:39 Hct 48.1 % (42.0-52.0) 08/03/22 17:39 MCV 98.0 fl (80-94) H 08/03/22 17:39 MCH 31.8 pg (28.0-34.0) 08/03/22 17:39 MCHC 32.4 g/dL (30.0-36.0) 08/03/22 17:39 RDW 13.3 % (12.1-15.1) 08/03/22 17:39 Plt Count 218 10^3/cmm (130-400) 08/03/22 17:39 MPV 10.1 fL (7.4-10.4) 08/03/22 17:39 Neut % (Auto) 53.0 % 08/03/22 17:39 Lymph % (Auto) 32.9 % 08/03/22 17:39 [place] % (Auto) 7.3 % 08/03/22 17:39 Eos % (Auto) 5.0 % 08/03/22 17:39 Baso % (Auto) 0.9 % 08/03/22 17:39 Neut # (Auto) 4.55 10^3/uL (1.8-7.7) 08/03/22 17:39 Lymph # (Auto) 2.8 10^3/uL (0.8-4.8) 08/03/22 17:39 [place] # (Auto) 0.6 10^3/uL (0.2-0.9) 08/03/22 17:39 Eos # (Auto) 0.4 10^3/uL (0.0-0.8) 08/03/22 17:39 Baso # (Auto) 0.1 10^3/uL (0.0-0.1) 08/03/22 17:39 Nucleated RBC % (auto) 0 % 08/03/22 17:39 Nucleated RBCs # 0.0 /100WBC 08/03/22 17:39 Urine Color Yellow (Yellow) 08/03/22 16:38 Urine Appearance Clear (CLEAR) 08/03/22 16:38 Urine pH 6 (5-7) 08/03/22 16:38 Ur Specific [place] 1.015 (1.005-1.030) 08/03/22 16:38 Urine Protein Neg (Negative) 08/03/22 16:38 Urine Glucose (UA) Norm (Normal) 08/03/22 16:38 Urine Ketones Negative (Negative) 08/03/22 16:38 Urine Blood Neg (Negative) 08/03/22 16:38 Urine Nitrate Negative (Negative) 08/03/22 16:38 Urine Bilirubin Neg (Negative) 08/03/22 16:38 Urine Urobilinogen Norm mg/dL (Negative) 08/03/22 16:38 Ur Leukocyte Esterase Negative (Negative) 08/03/22 16:38 Discharge Plan Discharge Patient Disposition: Home Clinical Impression: Pain in left testicle Condition: Stable Prescriptions: No Action morphine 60 mg tablet extended release 60 mg PO Q12H morphine 15 mg tablet extended release 15 mg PO Q12H gabapentin 800 mg tablet 800 mg PO QID metoprolol tartrate 50 mg tablet 50 mg PO BID tamsulosin [Flomax] 0.4 mg capsule 0.4 mg PO DAILY quetiapine [Seroquel] 400 mg tablet 400 mg PO .9 pm Qty: 30 3RF Rx Instructions: Take one tablet at 9 pm quetiapine [Seroquel] 100 mg tablet 100 mg PO BID Qty: 60 3RF Rx Instructions: Take one tablet twice per day as needed for anxiety/agitation prazosin 2 mg capsule 8 mg PO .QHS Qty: 120 3RF Rx Instructions: Take four capsules at bedtime fluoxetine [Prozac] 40 mg capsule 40 mg PO QAM Qty: 30 3RF Rx Instructions: Take one capsule every morning glipizide 5 mg tablet 5 mg PO DAILY varenicline 1 mg tablet 1 mg PO BID Discharge Orders: Discharge ED (Routine); Ordered 08/03/22 Ordered By: Cale Barrera Patient Instructions: Pain Management Activity Restrictions/Additional Instructions: Continue with routine care. Follow-up with primary care or specialist for further evaluation and treatment. At this time there is no sign of any acute illness or abnormality that require immediate intervention. Return to ER for fever greater than 100.4, blood in vomit or stool, or new concerns. Coding Level of Care Code ED [employer] Teacher for Maria Esther Fwd Exam Comprehensive
[2022-08-03 17:53] LABS: Basophils # 0.1 10^3/uL (0.0-0.1); Basophils % 0.9 %; Eosinophils # 0.4 10^3/uL (0.0-0.8); Hematocrit 48.1 % (42.0-52.0); Hemoglobin 15.6 g/dL (11.7-16.6); Lymphocytes # 2.8 10^3/uL (0.8-4.8); Lymphocytes % 32.9 %; Mean Corpuscular HGB Conc 32.4 g/dL (30.0-36.0); Mean Corpuscular Hemoglobin 31.8 pg (28.0-34.0); Mean Platelet Volume 10.1 fL (7.4-10.4); Monocytes # 0.6 10^3/uL (0.2-0.9); Monocytes % 7.3 %; Neutrophils # 4.55 10^3/uL (1.8-7.7); Nucleated Red Blood Cells % 0 %; Platelet Count 218 10^3/cmm (130-400); Red Blood Count 4.91 10^6/uL (4.1-5.3); Red Cell Distribution Width 13.3 % (12.1-15.1); White Blood Count 8.6 10^3/uL (4.0-10.0)
[2022-08-03] MEDS: HYDROcodone-acetaminophen 7.5-325 mg Tablet 1 TAB PO (18:54)
[2022-08-03 19:50] VITALS: PULSE 78; RESP 16; TEMP 36.7; O2SAT 98
== END 2022-08-03 19:45 | disposition home or self-care (01) ==
PROVIDERS: Physician Assistant; Emergency Provider Nurse Practitioner Family
DX: N50.812 Left testicular pain (principal); Z79.84 Long term (current) use of oral hypoglycemic drugs; F17.210 Nicotine dependence, cigarettes, uncomplicated
CPT/HCPCS: 74176; 76870; 81003; 85025; 96374; 99285; J1170

== ENCOUNTER 2022-08-25 13:03 | Emergency (ER) | payer MEDICARE, MEDICAID, SELFPAY ==
[2022-08-25 13:07] VITALS: BP 141/72; PULSE 82; RESP 17; TEMP 36.6; O2SAT 96; BMI 26.1
--- NOTE | 2022-08-25 13:11 | ED_ITS ---
HPI - Headache General: Chief Complaint: Headache Stated Complaint: Headache/NV Time Seen by Provider: 08/25/22 13:08 Source: patient History of Present Illness: 52-year-old male presents emergency room with headache nausea and vomiting. He brought in by EMS he was given Zofran in route with no significant relief. He has had headaches in the past. He has not had any weakness no vision changes no difficulty speech or swallowing. MD elicited complaint: headache Onset (ago): hour(s) Onset description: gradually Location: left and frontal Severity: moderate Quality & Timing: throbbing Exacerbating factors: light Relieving factors: rest Context: occurred at rest Associated symptoms: Deny chest pain, confusion, cough, diaphoresis, eye pain, eye redness, fever(s), lightheadedness, loss of vision, malaise, nausea, neck stiffness, numbness, paresthesias, photophobia, pre-syncope, rash, seizures, short of breath, sound sensitivity, syncope, vomiting or weakness Treatments prior to arrival: none Review of Systems Const: Denies: fever(s), chills, fatigue, malaise or diaphoresis ENMT: Denies: throat pain, ear or mastoid pain, nasal discharge or nasal congestion Card: Denies: chest pain, lightheadedness, syncope or pre-syncope Resp: Denies: dyspnea, productive cough or non-productive cough GI: Denies: abdominal pain, nausea or vomiting : Denies: flank pain, difficulty urinating, dysuria, urinary frequency or urinary urgency Musc: Denies: neck pain or back pain Skin/Breast: Denies: rash Neuro: Reports: headache(s); Denies: confusion PFS ED PFSH: Medical History Bereavement Sudden loss of mother on 03/18/20 Loss of brother Chronic post-traumatic stress disorder (PTSD) Major depressive disorder, recurrent severe without psychotic features Panic disorder without agoraphobia Psychiatric care Family History Denies family history of CAD (coronary artery disease) Social History Smoking and tobacco status: current every day smoker Alcohol intake: never Physical Exam Const: GENERAL APPEARANCE: cooperative and comfortable ORIENTATION/CONSCIOUSNESS: Yes awake, Yes oriented to person, Yes oriented to place and Yes oriented to time HENMT: COMMON NORMALS: normocephalic, atraumatic, hearing grossly normal bilaterally, external ears normal, EAC's normal, TM's normal bilaterally, Normal nasal mucous membranes and turbinates present, moist oral mucous membranes and oropharynx normal HEAD & SCALP: normocephalic and atraumatic NOSE: Normal nasal mucous membranes and turbinates present EXTERNAL EAR: Yes external ears normal EXTERNAL AUDITORY CANAL: EAC's normal TYMPANIC MEMBRANE: TM's normal bilaterally Eye: COMMON NORMALS: Equal, round and reactive pupils present, EOMs intact bilaterally, conjunctivae normal and no scleral icterus CONJUNCTIVA: Yes conjunctivae normal PUPIL: Yes Equal, round and reactive pupils present DIRECT OPHTHALMOSCOPY: No photophobia Neck/C-Spine: COMMON NORMALS: full ROM, no lymphadenopathy, supple and no JVD Lymph: LYMPHATIC: no lymphadenopathy noted and no lymphedema noted Resp: COMMON NORMALS: normal respiratory effort, No retractions, No use of accessory muscles and clear to auscultation bilaterally AUSCULTATION: clear to auscultation bilaterally Cardio: COMMON NORMALS: no JVD, regular rate, regular rhythm and No murmurs present (Cardio) RATE: regular rate RHYTHM: regular rhythm GI: COMMON NORMALS: Soft to palpation and No hepatosplenomegaly present AUSCULTATION: Yes normoactive bowel sounds PALPATION: Yes Soft to palpation, No Tenderness to palpation present (GI), No Guarding due to palpation present (GI) and Yes No hepatosplenomegaly present Extremity: COMMON NORMALS: normal to inspection, capillary refill normal, no clubbing, cyanosis or edema, no calf tenderness and no pedal edema Neuro: SENSORIUM/ORIENTATION: Yes oriented to person, Yes oriented to place and Yes oriented to time Skin: COMMON NORMALS: no rashes or lesions noted GENERAL SKIN EXAM: no rashes or lesions noted Course Vital Signs: Vital signs: Vital Signs Temperature 97.9 F 08/25/22 13:07 Pulse Rate 81 08/25/22 15:57 Respiratory Rate 16 08/25/22 15:57 Blood Pressure 137/85 08/25/22 15:57 Pulse Oximetry 100 08/25/22 15:57 Oxygen Delivery Me thod 08/25/22 15:56 MDM - Headache Medical Decision Making Improvement with medications will discharge home. Neurologically intact without any focal neurologic deficits. Laboratory test and CT head are unremarkable no sign of any bleeding intracranial masses or CVA. No significant sinus disease. Electrolytes and CBC are unremarkable no sign of infectious process. Follow-up with primary care as needed. Medical Records I reviewed the patient's medical records. Lab Data I reviewed the patient's lab results. : 08/25/22 13:50 08/25/22 14:[address] 08/25/22 13:28 IMPRESSION: 1. No evidence of intracranial hemorrhage or mass effect. 2. Mild small vessel changes. Mild parenchymal volume loss. 3. No acute intracranial findings. Laboratory Results WBC 8.9 10^3/uL (4.0-10.0) 08/25/22 13:50 RBC 4.56 10^6/uL (4.1-5.3) 08/25/22 13:50 Hgb 14.4 g/dL (11.7-16.6) 08/25/22 13:50 Hct 44.5 % (42.0-52.0) 08/25/22 13:50 MCV 97.6 fl (80-94) H 08/25/22 13:50 MCH 31.6 pg (28.0-34.0) 08/25/22 13:50 MCHC 32.4 g/dL (30.0-36.0) 08/25/22 13:50 RDW 13.0 % (12.1-15.1) 08/25/22 13:50 Plt Count 192 10^3/cmm (130-400) 08/25/22 13:50 MPV 10.4 fL (7.4-10.4) 08/25/22 13:50 Neut % (Auto) 65.3 % 08/25/22 13:50 Lymph % (Auto) 23.4 % 08/25/22 13:50 [place] % (Auto) 6.0 % 08/25/22 13:50 Eos % (Auto) 3.8 % 08/25/22 13:50 Baso % (Auto) 0.8 % 08/25/22 13:50 Neut # (Auto) 5.78 10^3/uL (1.8-7.7) 08/25/22 13:50 Lymph # (Auto) 2.1 10^3/uL (0.8-4.8) 08/25/22 13:50 [place] # (Auto) 0.5 10^3/uL (0.2-0.9) 08/25/22 13:50 Eos # (Auto) 0.3 10^3/uL (0.0-0.8) 08/25/22 13:50 Baso # (Auto) 0.1 10^3/uL (0.0-0.1) 08/25/22 13:50 Nucleated RBC % (auto) 0 % 08/25/22 13:50 Nucleated RBCs # 0.0 /100WBC 08/25/22 13:50 Sodium 137 mmol/L (136-145) 08/25/22 14:26 Potassium 4.2 mmol/L (3.5-5.1) 08/25/22 14:26 Chloride 99 mmol/L (98-107) 08/25/22 14:26 Carbon Dioxide 30 mmol/L (22-29) H 08/25/22 14:26 Anion Gap 12.2 (5-19) 08/25/22 14:26 BUN 6 mg/dL (6-20) 08/25/22 14:26 Creatinine 0.7 mg/dL (0.7-1.2) 08/25/22 14:26 GFR Calculation 118.4 mL/min (90-130) 08/25/22 14:26 Glucose 62 mg/dL (65-115) L 08/25/22 14:26 Calculated Osmolality 280 mOsm/kg (285-295) L 08/25/22 14:26 Calcium 9.5 mg/dL (8.5-10.5) 08/25/22 14:26 Total Bilirubin 0.2 mg/dL (0.15-1.2) 08/25/22 14:26 AST 18 U/L (0-40) 08/25/22 14:26 ALT 15 U/L (0-41) 08/25/22 14:26 Alkaline Phosphatase 83 U/L (40-130) 08/25/22 14:26 Total Protein 6.8 g/dL (6.6-8.7) 08/25/22 14:26 Albumin 3.8 g/dL (3.5-5.2) 08/25/22 14:26 Globulin 3.0 g/dL (1.3-4.6) 08/25/22 14:26 Discharge Plan Discharge Patient Disposition: Home Clinical Impression: HTN (hypertension), Headache, Benign paroxysmal positional vertigo Condition: Stable Prescriptions: New meclizine 25 mg tablet 25 mg PO QID PRN (Reason: dizziness) Qty: 20 0RF amlodipine 5 mg tablet 5 mg PO DAILY Qty: 30 0RF No Action morphine 60 mg tablet extended release 60 mg PO Q12H morphine 15 mg tablet extended release 15 mg PO Q12H gabapentin 800 mg tablet 800 mg PO QID metoprolol tartrate 50 mg tablet 50 mg PO BID tamsulosin [Flomax] 0.4 mg capsule 0.4 mg PO DAILY quetiapine [Seroquel] 400 mg tablet 400 mg PO .9 pm Qty: 30 3RF Rx Instructions: Take one tablet at 9 pm quetiapine [Seroquel] 100 mg tablet 100 mg PO BID Qty: 60 3RF Rx Instructions: Take one tablet twice per day as needed for anxiety/agitation prazosin 2 mg capsule 8 mg PO .QHS Qty: 120 3RF Rx Instructions: Take four capsules at bedtime fluoxetine [Prozac] 40 mg capsule 40 mg PO QAM Qty: 30 3RF Rx Instructions: Take one capsule every morning glipizide 5 mg tablet 5 mg PO DAILY varenicline 1 mg tablet 1 mg PO BID Discharge Orders: Discharge ED (Routine); Ordered 08/25/22 Ordered By: Louis Waters Discharge Diet: Usual diet Discharge Activity: Increase activity as tolerated Patient Instructions: Opioid Safety, Pain Management Activity Restrictions/Additional Instructions: Follow-up with your doctor within a week to reevaluate blood pressure Coding Level of Care Code ED Private Equity Associate for Maria Esther Waldrop
--- NOTE | 2022-08-25 13:28 | CT_ITS ---
WS: [id number] CT HEAD TECHNIQUE: Noncontrast CT of the head obtained from the skullbase to the vertex. CLINICAL INFORMATION: vision changes, headache COMPARISON: May 30, 2017 DLP: 1150.[address] scans at [facility] use at least one of these dose optimization techniques: automated e xposure control; mA and/or kV adjustment per patient size (includes targeted exams where dose is matc hed to clinical indication); or iterative reconstruction. FINDINGS: No evidence of intracranial hemorrhage or mass effect. Ventricular system and basal cisterns are valdez nt. Mild small vessel changes with mild parenchymal volume loss. Intracranial vascular calcification. No extra-axial fluid collections. No evidence of mass or mass effect. Small amount of fluid in the RIGHT maxillary sinus. Mild mucosal thickening ethmoid air cells and fro ntal ethmoidal recess. Mastoid air cells well aerated. Normal visualized posterior nasopharynx. CT/CT head wo con* [id number] IMPRESSION: 1. No evidence of intracranial hemorrhage or mass effect. 2. Mild small vessel changes. Mild parenchymal volume loss. 3. No acute intracranial findings.
[2022-08-25] MEDS: sodium chloride 0.9% 1,000 ML 999 ML IV (13:34)
[2022-08-25] MEDS: ketorolac 30 mg/mL INJ IVP (13:34)
[2022-08-25] MEDS: promethazine 25 mg/mL SDV 1 mL IM (13:34)
[2022-08-25 13:58] LABS: Basophils # 0.1 10^3/uL (0.0-0.1); Basophils % 0.8 %; Eosinophils # 0.3 10^3/uL (0.0-0.8); Eosinophils % 3.8 %; Hematocrit 44.5 % (42.0-52.0); Hemoglobin 14.4 g/dL (11.7-16.6); Lymphocytes # 2.1 10^3/uL (0.8-4.8); Lymphocytes % 23.4 %; Mean Corpuscular HGB Conc 32.4 g/dL (30.0-36.0); Mean Corpuscular Hemoglobin 31.6 pg (28.0-34.0); Mean Corpuscular Volume 97.6 fl (80-94); Mean Platelet Volume 10.4 fL (7.4-10.4); Monocytes # 0.5 10^3/uL (0.2-0.9); Neutrophils # 5.78 10^3/uL (1.8-7.7); Neutrophils % 65.3 %; Nucleated Red Blood Cells % 0 %; Platelet Count 192 10^3/cmm (130-400); Red Blood Count 4.56 10^6/uL (4.1-5.3); White Blood Count 8.9 10^3/uL (4.0-10.0)
[2022-08-25 14:52] VITALS: BP 152/103; PULSE 76; O2SAT 97
[2022-08-25 15:11] LABS: Alanine Aminotransferase 15 U/L (0-41); Albumin Level 3.8 g/dL (3.5-5.2); Alkaline Phosphatase 83 U/L (40-130); Anion Gap 12.2 (5-19); Aspartate Amino Transferase 18 U/L (0-40); Blood Urea Nitrogen 6 mg/dL (6-20); Calcium 9.5 mg/dL (8.5-10.5); Carbon Dioxide 30 mmol/L (22-29); Chloride 99 mmol/L (98-107); Glomerular Filtration Rate 118.4 mL/min (90-130); Glucose 62 mg/dL (65-115); Osmolality Calculated 280 mOsm/kg (285-295); Potassium 4.2 mmol/L (3.5-5.1); Sodium 137 mmol/L (136-145); Total Bilirubin 0.2 mg/dL (0.15-1.2); Total Protein 6.8 g/dL (6.6-8.7)
[2022-08-25] MEDS: amlodipine 5 mg Tablet PO (15:48)
[2022-08-25 15:56] VITALS: BP 137/85; PULSE 81; O2SAT 100
[2022-08-25 15:57] VITALS: BP 137/85; PULSE 81; RESP 16; O2SAT 100
== END 2022-08-25 15:59 | disposition home or self-care (01) ==
PROVIDERS: Emergency Provider Family Medicine
DX: R51.9 Headache, unspecified (principal); I10 Essential (primary) hypertension; H81.10 Benign paroxysmal vertigo, unspecified ear; Z79.84 Long term (current) use of oral hypoglycemic drugs; F17.210 Nicotine dependence, cigarettes, uncomplicated
CPT/HCPCS: 36415; 70450; 80053; 85025; 96361; 96372; 96374; 99285; J1885; J2550; J7030

== ENCOUNTER 2022-10-10 20:57 | Emergency (ER) | payer MEDICARE, MEDICAID, SELFPAY ==
[2022-10-10 21:17] VITALS: BP 162/94; PULSE 86; RESP 18; TEMP 36.6; O2SAT 98; BMI 26.1
--- NOTE | 2022-10-10 21:22 | XRR_ITS ---
PROCEDURE INFORMATION: Exam: XR Chest Exam date and time: 10/10/2022 9:27 PM Age: 52 years old Clinical indication: Pain; Chest pressure; Additional info: Cp TECHNIQUE: Imaging protocol: Radiologic exam of the chest. Views: 1 view. COMPARISON: CR XR chest 2V* [id number] 11/20/2021 3:39 PM FINDINGS: Lungs: Minimal left basilar opacity may represent atelectasis. No consolidation. Pleural spaces: Unremarkable. No pleural effusion. No pneumothorax. Heart/Mediastinum: Unremarkable. No cardiomegaly. Bones/joints: Postoperative findings of ACDF are partially imaged. There are degenerative changes of the shoulder joints. XR/XR chest 1V portable [id number] IMPRESSION: No acute radiographic findings in the chest.
--- NOTE | 2022-10-10 21:23 | ECG_ITS ---
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 Measurements Intervals [place] Rate: 86 P: 33 CO: 153 QRS: -20 QRSD: 93 T: 55 QT: 380 QTc: 456 Interpretive Statements SINUS RHYTHM SEPTAL MYOCARDIAL INFARCTION , OF INDETERMINATE AGE [40+ ms Q WAVE IN V1/V2] Compared to ECG 11/20/2021 17:29:47 Myocardial infarct finding now present Electronically Signed On 10-11-2022 19:45:41 MICROWAVE SUPERVISOR by Mic Marvin M.D. [id number]
[2022-10-10 21:33] LABS: Basophils # 0.1 10^3/uL (0.0-0.1); Basophils % 0.9 %; Eosinophils # 0.2 10^3/uL (0.0-0.8); Eosinophils % 2.8 %; Hematocrit 44.2 % (42.0-52.0); Hemoglobin 14.6 g/dL (11.7-16.6); Lymphocytes # 1.8 10^3/uL (0.8-4.8); Mean Corpuscular Hemoglobin 31.5 pg (28.0-34.0); Mean Corpuscular Volume 95.3 fl (80-94); Monocytes # 0.7 10^3/uL (0.2-0.9); Monocytes % 8.8 %; Neutrophils % 64.9 %; Nucleated Red Blood Cells % 0 %; Platelet Count 226 10^3/cmm (130-400); Red Blood Count 4.64 10^6/uL (4.1-5.3); Red Cell Distribution Width 13.2 % (12.1-15.1); White Blood Count 8.2 10^3/uL (4.0-10.0)
--- NOTE | 2022-10-10 21:43 | CTR_ITS ---
PROCEDURE INFORMATION: Exam: CT Head Without Contrast Exam date and time: 10/10/2022 10:02 PM Age: 52 years old Clinical indication: Weakness, extremity; Additional info: Left leg weakness TECHNIQUE: Imaging protocol: Computed tomography of the head without contrast. Radiation optimization: All CT scans at this facility use at least one of these dose optimization techniques: automated exposure control; mA and/or kV adjustment per patient size (includes targeted exams where dose is matched to clinical indication); or iterative reconstruction. COMPARISON: CT head wo con* [id number] 08/25/2022 2:16 PM RADIATION DOSE METRICS: Total DLP (mGy-cm): 1197.19 FINDINGS: Brain: No evidence of acute intracranial hemorrhage. The kim-white matter differentiation is maintained. No significant mass effect or midline shift. Minimal periventricular hypoattenuation are nonspecific but likely represents the sequela of chronic small-vessel ischemic disease. There are atherosclerotic calcifications of the carotid siphons. Cerebral ventricles: Mild cerebral volume loss and ex vacuo dilation of the ventricles. Paranasal sinuses: Frothy and retained secretions in the right maxillary sinus. Mucous retention cyst in the left maxillary sinus. Scattered opacification in the ethmoid air cells. Mild mucosal thickening in the remaining paranasal sinuses. No fluid levels. Mastoid air cells: Visualized mastoid air cells are well aerated. Bones/joints: Unremarkable. No acute fracture. Soft tissues: Unremarkable. CT/CT head wo con* [id number] IMPRESSION: 1. No acute intracranial hemorrhage, mass effect, or midline shift. 2. Paranasal sinus disease as outlined.
[2022-10-10 21:51] LABS: Troponin(5th) Baseline 12 ng/L (0-15)
[2022-10-10 21:59] LABS: Alanine Aminotransferase 16 U/L (0-41); Albumin Level 3.9 g/dL (3.5-5.2); Alkaline Phosphatase 91 U/L (40-130); Aspartate Amino Transferase 16 U/L (0-40); Blood Urea Nitrogen 7 mg/dL (6-20); Calcium 9.1 mg/dL (8.5-10.5); Carbon Dioxide 24 mmol/L (22-29); Chloride 98 mmol/L (98-107); Globulin 3.1 g/dL (1.3-4.6); Glomerular Filtration Rate 118.4 mL/min (90-130); Glucose 166 mg/dL (65-115); NT Pro B Type Natriuretic Pept 5 pg/mL (0-125); Osmolality Calculated 278 mOsm/kg (285-295); Sodium 133 mmol/L (136-145); Total Bilirubin 0.2 mg/dL (0.15-1.2)
[2022-10-10 22:14] VITALS: RESP 17; O2SAT 99
[2022-10-10] MEDS: morphine 4 mg/mL SDV 1 mL IVP (22:14)
[2022-10-10] MEDS: midazolam 1 mg/mL INJ 2 mL 2 MG IVP (22:14)
[2022-10-10] MEDS: nitroglycerin 1 gm/inch oint Pkt 1 INCH TOPICAL (22:15)
[2022-10-10 22:18] VITALS: BP 158/104; PULSE 86; RESP 18; O2SAT 96
[2022-10-10 23:00] VITALS: BP 141/97; PULSE 85; RESP 16; O2SAT 94
[2022-10-10] MEDS: haloperidol inj 5 mg/mL INJ 1 mL 3 MG IVP (23:32)
--- NOTE | 2022-10-10 23:37 | ECG_ITS ---
[facility] Test Date: 2022-10-10 Pat Name: Mert Spain Department: Room: Gender: Male Swimming Coach: : 1970 Requested By: Dom Elmore Order Number: [id number] Ramirez MD: Mic Marvin M.D. Measurements Intervals [place] Rate: 83 P: 63 SC: 144 QRS: -8 QRSD: 86 T: 46 QT: 389 QTc: 460 Interpretive Statements SINUS RHYTHM POSSIBLE LEFT ATRIAL ENLARGEMENT [-0.1mV P-WAVE IN V1/V2] Compared to ECG 10/10/2022 21:21:17 Myocardial infarct finding no longer present Electronically Signed On 10-11-2022 19:57:31 RN PROCEDURE by Mic Marvin M.D. [id number]
[2022-10-10 23:49] LABS: Troponin 5 2HR 12.44 ng/L (0-15)
[2022-10-10 23:56] LABS: Troponin 5 2HR Delta 0.44 ABS# (0-10)
--- NOTE | 2022-10-10 23:56 | PC.NURSE ---
patient now able to move leg, bend at the knee, flex his foot.
[2022-10-11] VITALS: BP 135/91; PULSE 85; RESP 18; O2SAT 96
--- NOTE | 2022-10-11 00:36 | W.ED.CHESTPA ---
HPI - Chest Pain General: Chief Complaint: Chest Pain Stated Complaint: CP Time Seen by Provider: 10/10/22 21:18 Source: patient History of Present Illness: 52-year-old male gentleman with a history of hypertension and diabetes. He was at home with a friend liliana, and checked his blood pressure. He noted that it was high. He began to get dizzy, and have presyncopal type symptoms. His blood pressure again was high at that point. Because of this a friend called EMS. He then developed some left-sided chest discomfort he is not overly short of breath. After her arrival here, he noted that his left leg felt numb, and did not want to move. His left upper extremity is asymptomatic. He has no other neurologic symptoms. MD complaint: chest pain and other Pertinent past history: other Onset (ago): hour(s) Timing of current episode: constant Prior episodes: No Onset: during rest Pain location: left chest Pain radiation: left arm Severity: moderate Quality: aching Relieving factors: nothing Exacerbating factors: nothing Associated symptoms: Reports dyspnea (mild); Deny abdominal pain, diaphoresis, fever(s), leg edema, nausea, palpitations or vomiting Risk Factors: Coronary artery disease risk factors: diabetes and hypertension Review of Systems Const: Denies: fever(s) or diaphoresis ENMT: Denies: throat pain Card: Reports: chest pain; Denies: palpitations or irregular heart rhythm Resp: Reports: dyspnea (mild) GI: Denies: abdominal pain, nausea or vomiting Musc: Reports: neck pain (chronic) Neuro: Reports: numbness in extremities (LLE) and weakness in extremities (LLE) Psych: Reports: anxiety [facility] ED PFSH: Medical History Bereavement Sudden loss of mother on 03/18/20 Loss of brother Chronic post-traumatic stress disorder (PTSD) Major depressive disorder, recurrent severe without psychotic features Panic disorder without agoraphobia Psychiatric care Family History Denies family history of CAD (coronary artery disease) Social History Smoking and tobacco status: current every day smoker Alcohol intake: never Physical Exam Const: COMMON NORMALS: no acute distress GENERAL APPEARANCE: anxious; not ill appearing and not frail appearing HENMT: COMMON NORMALS: normocephalic, atraumatic and Normal external nose present HEAD & SCALP: normocephalic and atraumatic FACE & SINUS: normal facial exam and face symmetric NOSE: Normal external nose present Eye: COMMON NORMALS: Equal, round and reactive pupils present and EOMs intact bilaterally PUPIL: Yes Equal, round and reactive pupils present Neck/C-Spine: GENERAL: Yes trachea midline Chest: CHEST: Yes Symmetrical chest wall rise Resp: COMMON NORMALS: normal respiratory effort, No retractions, No use of accessory muscles and clear to auscultation bilaterally AUSCULTATION: clear to auscultation bilaterally Cardio: COMMON NORMALS: regular rate and regular rhythm RATE: regular rate RHYTHM: regular rhythm GI: COMMON NORMALS: Normal to inspection, nondistended, normoactive bowel sounds present Extremity: COMMON NORMALS: no pedal edema Neuro: [place] COMA SCALE: document GCS findings [place] coma scale eye opening: Spontaneous [place] coma scale verbal response: Orientated [place] coma scale motor response: Obey commands [place] coma scale total score: 15 CRANIAL NERVES: Yes CN normal except as noted COORDINATION/BALANCE: [id number] test normal and No sdmo-fd-[id number] test normal (can't perform on left) SPEECH: speech normal SENSORY EXAM: Yes extremities (decrease LLE) MOTOR EXAM: Pronator motor function not present, Normal motor muscle tone present throughout and Abnormal motor strength present (weakness LLE) COORDINATION: [id number] test normal and ceeo-xi-epko test abnormal (can't perform on left) Psych: COMMON NORMALS: speech normal SPEECH: Yes normal speech Skin: COMMON NORMALS: no rashes or lesions noted GENERAL SKIN EXAM: no rashes or lesions noted Course Vital Signs: Vital signs: Vital Signs Temperature 97.8 F 10/10/22 21:17 Pulse Rate 85 10/11/22 01:12 Respiratory Rate 18 10/11/22 01:12 Blood Pressure 135/91 10/11/22 01:12 Pulse Oximetry 96 10/11/22 01:12 Oxygen Delivery Me thod 10/11/22 00:00 MDM - Chest Pain Medical Decision Making Patient arrives somewhat hypertensive. He complains of left-sided chest discomfort, and a new complaint of left leg mobility and numbness. There were no other neurological symptoms. His left upper extremity was fine. There were no language vision or speech problems. For chest discomfort, he was given nitroglycerin paste topically. His blood pressure came down nicely. Currently it is 135/91. His chest pain is gone. His left lower extremity weakness and paresthesia is more complex. Given his lack of any other symptoms, including back pain, headache, or any other neurologic symptoms, this was treated as a possible anxiety reaction/conversion disorder. The patient was given small doses of Versed and haloperidol, and his symptoms resolved. They seem to resolve also incongruence with his blood pressure improving. He is currently much improved, his neurologic symptoms are resolved, and his chest pain is resolved. His blood pressure is improved. He will be given amlodipine now for continued control of his pressure. We will prescribe him amlodipine that he can take as needed for hypertension at home until his blood pressure is more sorted. He will follow-up with his primary care physician this week. Because of his neurologic symptoms, he will be encouraged to take an aspirin daily. His EKG showed a normal sinus rhythm with normal axis and intervals. No acute ST changes. Rate was 80. His troponin did not change at 2 hours. Lab Data 10/10/22 21:19 10/10/22 21:19 Radiology Impressions Chest X-Ray 10/10/22: IMPRESSION: No acute radiographic findings in the chest. Head CT 10/10/22 21:43 IMPRESSION: 1. No acute intracranial hemorrhage, mass effect, or midline shift. 2. Paranasal sinus disease as outlined. Laboratory Results WBC 8.2 10^3/uL (4.0-10.0) 10/10/22 21: RBC 4.64 10^6/uL (4.1-5.3) 10/10/22 21: Hgb 14.6 g/dL (11.7-16.6) 10/10/22: Hct 44.2 % (42.0-52.0) 10/10/22: MCV 95.3 fl (80-94) H 10/10/22: MCH 31.5 pg (28.0-34.0) 10/10/22: MCHC 33.0 g/dL (30.0-36.0) 12/03/22 21:19 RDW 13.2 % (12.1-15.1) 10/10/22 21:19 Plt Count 226 10^3/cmm (130-400) 10/10/22 21:19 MPV 10.0 fL (7.4-10.4) 10/10/22 21:19 Neut % (Auto) 64.9 % 10/10/22 21:19 Lymph % (Auto) 22.0 % 10/10/22 21:19 [place] % (Auto) 8.8 % 10/10/22 21:19 Eos % (Auto) 2.8 % 10/10/22 21:19 Baso % (Auto) 0.9 % 10/10/22 21:19 Neut # (Auto) 5.30 10^3/uL (1.8-7.7) 10/10/22 21:19 Lymph # (Auto) 1.8 10^3/uL (0.8-4.8) 10/10/22 21:19 [place] # (Auto) 0.7 10^3/uL (0.2-0.9) 10/10/22 21:19 Eos # (Auto) 0.2 10^3/uL (0.0-0.8) 10/10/22 21:19 Baso # (Auto) 0.1 10^3/uL (0.0-0.1) 10/10/22 21:19 Nucleated RBC % (auto) 0 % 10/10/22 21:19 Nucleated RBCs # 0.0 /100WBC 10/10/22 21:19 Sodium 133 mmol/L (136-145) L 10/10/22 21:19 Potassium 4.0 mmol/L (3.5-5.1) 10/10/22 21:19 Chloride 98 mmol/L (98-107) 10/10/22 21:19 Carbon Dioxide 24 mmol/L (22-29) 10/10/22 21:19 Anion Gap 15.0 (5-19) 10/10/22 21:19 BUN 7 mg/dL (6-20) 10/10/22 21:19 Creatinine 0.7 mg/dL (0.7-1.2) 10/10/22 21:19 GFR Calculation 118.4 mL/min (90-130) 12/03/22 21:19 Glucose 166 mg/dL (65-115) H 10/10/22 21:19 Calculated Osmolality 278 mOsm/kg (285-295) L 10/10/22 21:19 Calcium 9.1 mg/dL (8.5-10.5) 10/10/22 21:19 Total Bilirubin 0.2 mg/dL (0.15-1.2) 10/10/22 21:19 AST 16 U/L (0-40) 10/10/22 21:19 ALT 16 U/L (0-41) 10/10/22 21:19 Alkaline Phosphatase 91 U/L (40-130) 10/10/22 21:19 Troponin T Baseline 12 ng/L (0-15) 10/10/22 21:23 Troponin T 120 Minute 12.44 ng/L (0-15) 10/10/22 23:24 Delta Troponin T 0.44 ABS# (0-10) 10/10/22 23:24 NT-Pro-B Natriuret Pep 5 pg/mL (0-125) 10/10/22 21:19 Total Protein 7.0 g/dL (6.6-8.7) 10/10/22 21:19 Albumin 3.9 g/dL (3.5-5.2) 10/10/22 21:19 Globulin 3.1 g/dL (1.3-4.6) 10/10/22 21:19 Discharge Plan Discharge Patient Disposition: Home Clinical Impression: Chest pain, Hypertension Condition: Stable Prescriptions: Continued amlodipine 5 mg tablet 5 mg PO DAILY Qty: 30 0RF No Action morphine 60 mg tablet extended release 60 mg PO Q12H morphine 15 mg tablet extended release 15 mg PO Q12H gabapentin 800 mg tablet 800 mg PO QID metoprolol tartrate 50 mg tablet 50 mg PO BID tamsulosin [Flomax] 0.4 mg capsule 0.4 mg PO DAILY quetiapine [Seroquel] 400 mg tablet 400 mg PO .9 pm Qty: 30 3RF Rx Instructions: Take one tablet at 9 pm quetiapine [Seroquel] 100 mg tablet 100 mg PO BID Qty: 60 3RF Rx Instructions: Take one tablet twice per day as needed for anxiety/agitation prazosin 2 mg capsule 8 mg PO .QHS Qty: 120 3RF Rx Instructions: Take four capsules at bedtime fluoxetine [Prozac] 40 mg capsule 40 mg PO QAM Qty: 30 3RF Rx Instructions: Take one capsule every morning glipizide 5 mg tablet 5 mg PO DAILY varenicline 1 mg tablet 1 mg PO BID meclizine 25 mg tablet 25 mg PO QID PRN (Reason: dizziness) Qty: 20 0RF Discharge Orders: Discharge ED (Routine); Ordered 10/11/22 Ordered By: Dom Alcantar Patient Instructions: Chest Pain (ED), Paresthesia (ED), Hypertension (ED), Opioid Safety, Pain Management Activity Restrictions/Additional Instructions: Continue to check your blood pressures twice daily. If your blood pressure is staying above 150/90, take the medication you were prescribed this morning. If it is not staying above this number, you do not have to take the medication. Return for any repeated episodes of chest discomfort, shortness of breath, weakness, vision or language problems, any other concerning symptoms. Follow-up with your doctor this week. Coding Level of Care Code ED Plasma Processing Technician for Maria Esther Waldrop
[2022-10-11] MEDS: amlodipine 10 mg Tablet PO (00:59)
[2022-10-11 01:12] VITALS: BP 135/91; PULSE 85; RESP 18; O2SAT 96
== END 2022-10-11 01:10 | disposition home or self-care (01) ==
PROVIDERS: Emergency Provider Emergency Medicine
DX: R07.9 Chest pain, unspecified (principal); I10 Essential (primary) hypertension; F17.200 Nicotine dependence, unspecified, uncomplicated; R53.1 Weakness; R20.2 Paresthesia of skin
CPT/HCPCS: 36415; 70450; 71045; 80053; 83880; 84484; 85025; 93005; 96374; 96375; 99285; J1630; J2250; J2270

== ENCOUNTER 2022-11-17 19:12 | Emergency (ER) | payer MEDICARE, MEDICAID, SELFPAY ==
[2022-11-17 19:21] VITALS: BP 180/107; PULSE 102; RESP 18; TEMP 36.6; O2SAT 92; BMI 26.1
--- NOTE | 2022-11-17 19:22 | ED_ITS ---
HPI - Chest Pain General: Chief Complaint: Chest Pain Stated Complaint: Chest tightness Time Seen by Provider: 11/17/22 19:21 History of Present Illness: Mr. Spain is a 52-year-old gentleman with history of psychiatric disorder presenting to the emergency department due to chest discomfort. He reports being at rest and about 6:00 pm when he was watching the news and had onset of chest tightness and generalized malaise, additionally mild associated nausea. He took his blood pressure and noted that it was significantly elevated. Denies other known specific provoking factors. Intensity symptoms moderate. Course has persisted. No other specific changes in health, exacerbating, or alleviating factors identified. Onset (ago): hour(s) Timing of current episode: constant Prior episodes: Yes Onset: during rest Pain location: substernal Pain radiation: none Severity: moderate Quality: tightness Relieving factors: nothing Exacerbating factors: nothing Associated symptoms: Reports nausea Review of Systems General: Reports: 10 or more systems reviewed and unremarkable except in HPI and below GI: Reports: nausea PFSH ED PFSH: Medical History Bereavement Sudden loss of mother on 03/18/20 Loss of brother Chronic post-traumatic stress disorder (PTSD) Major depressive disorder, recurrent severe without psychotic features Panic disorder without agoraphobia Psychiatric care Family History Denies family history of CAD (coronary artery disease) Social History Smoking and tobacco status: current every day smoker Alcohol intake: never Physical Exam Const: COMMON NORMALS: alert GENERAL APPEARANCE: cooperative and well developed HENMT: COMMON NORMALS: normocephalic and atraumatic HEAD & SCALP: normocephalic and atraumatic Eye: COMMON NORMALS: conjunctivae normal CONJUNCTIVA: Yes conjunctivae normal SCLERA: sclerae normal Neck/C-Spine: COMMON NORMALS: supple GENERAL: Yes trachea midline Resp: COMMON NORMALS: clear to auscultation bilaterally EFFORT & INSPECTION: Yes able to speak in complete sentences AUSCULTATION: clear to auscultation bilaterally Cardio: COMMON NORMALS: regular rate and regular rhythm RATE: regular rate RHYTHM: regular rhythm GI: COMMON NORMALS: Soft to palpation PALPATION: Yes Soft to palpation and No Tenderness to palpation present (GI) Extremity: GENERAL: Yes normal exam except as noted and No edema Neuro: COMMON NORMALS: moves all extremities SENSORIUM/ORIENTATION: Yes a lert and No Orientation impaired Psych: COMMON NORMALS: mental status grossly normal and Normal thought process present THOUGHT PROCESS: Normal thought process present Course 2 Vital Signs: Vital signs: Vital Signs Temperature 97.8 F 11/17/22 19:21 Pulse Rate 98 11/17/22 23:36 Respiratory Rate 16 11/17/22 23:36 Blood Pressure 165/95 11/17/22 23:36 Pulse Oximetry 98 11/17/22 23:36 Oxygen Delivery Me thod 11/17/22 21:15 MDM - Chest Pain Medical Decision Making 52-year-old gentleman presenting with high blood pressure and chest discomfort. Exam as above. EKG notable for sinus rhythm, no STEMI. No significant hematologic or metabolic abnormalities to explain symptoms. Negative range 2-hour delta troponin. Chest x-ray with no lobar consolidation or pneumothorax. Hip x-ray obtained due to patient reporting symptoms and severe degenerative changes discussed with the patient. During ED course patient treated with antiemetic, aspirin, nitroglycerin. He feels improved. Most likely etiology of patient symptoms is unspecified chest pain and high blood pressure. Patient I believe is low risk by heart score. He is appropriate for outpatient management however does require further outpatient cardiac testing. The results of ED evaluation were discussed with the patient including prescriptions and/or symptomatic cares (if applicable) including appropriate and responsible use, followup plan, and return precautions. The patient verbalized understanding and felt safe for discharge. Medical Records I reviewed the patient's medical records. Lab Data I reviewed the patient's lab results. 11/17/22 19:20 11/17/22 19:20 Radiology Impressions Chest X-Ray 11/17/22 19:29 IMPRESSION: No acute findings. Hip/Pelvis X-Ray 11/17/22 20:18 IMPRESSION: 1. No fracture or acute finding. 2. 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 Laboratory Results WBC 9.4 10^3/uL (4.0-10.0) 11/17/22 19:20 RBC 5.22 10^6/uL (4.1-5.3) 11/17/22 19:20 Hgb 16.2 g/dL (11.7-16.6) 11/17/22 19:20 Hct 50.0 % (42.0-52.0) 11/17/22 19:20 MCV 95.8 fl (80-94) H 11/17/22 19:20 MCH 31.0 pg (28.0-34.0) 11/17/22 19:20 MCHC 32.4 g/dL (30.0-36.0) 11/17/22:20 RDW 13.5 % (12.1-15.1) 11/17/22 19:20 Plt Count 240 10^3/cmm (130-400) 11/17/22 19:20 MPV 10.1 fL (7.4-10.4) 11/17/22 19:20 Neut % (Auto) 58.4 % 11/17/22:20 Lymph % (Auto) 30.5 % 11/17/22 19:20 [place] % (Auto) 6.5 % 11/17/22 19:20 Eos % (Auto) 3.2 % 11/17/22 19:20 Baso % (Auto) 1.0 % 11/17/22 19:20 Neut # (Auto) 5.49 10^3/uL (1.8-7.7) 11/17/22 19:20 Lymph # (Auto) 2.9 10^3/uL (0.8-4.8) 11/17/22 19:20 [place] # (Auto) 0.6 10^3/uL (0.2-0.9) 11/17/22 19:20 Eos # (Auto) 0.3 10^3/uL (0.0-0.8) 11/17/22 19:20 Baso # (Auto) 0.1 10^3/uL (0.0-0.1) 11/17/22 19:20 Nucleated RBC % (auto) 0 % 11/17/22: Nucleated RBCs # 0.0 /100WBC 11/17/22 19:20 Sodium 139 mmol/L (136-145) 11/17/22 19:20 Potassium 4.2 mmol/L (3.5-5.1) 11/17/22: Chloride 100 mmol/L (98-107) 11/17/22 19:20 Carbon Dioxide 28 mmol/L (22-29) 11/17/22 19:20 Anion Gap 15.2 (5-19) 11/17/22 19:20 BUN 9 mg/dL (6-20) 11/17/22 19:20 Creatinine 0.7 mg/dL (0.7-1.2) 11/17/22 19:20 GFR Calculation 118.4 mL/min (90-130) 11/17/22 19:20 Glucose 106 mg/dL (65-115) 11/17/22 19:20 Calculated Osmolality 287 mOsm/kg (285-295) 11/17/22 19:20 Calcium 10.6 mg/dL (8.5-10.5) H 11/17/22 19:20 Total Bilirubin 0.3 mg/dL (0.15-1.2) 11/17/22 19:20 AST 15 U/L (0-40) 11/17/22 19:20 ALT 12 U/L (0-41) 11/17/22 19:20 Alkaline Phosphatase 99 U/L (40-130) 11/17/22 19:20 Troponin T Baseline 10 ng/L (0-15) 11/17/22 20:35 Troponin T 120 Minute 11.04 ng/L (0-15) 11/17/22 22:14 Delta Troponin T 1.04 ABS# (0-10) 11/17/22 22:14 NT-Pro-B Natriuret Pep 11 pg/mL (0-125) 11/17/22 19:20 Total Protein 7.5 g/dL (6.6-8.7) 11/17/22 19:20 Albumin 4.6 g/dL (3.5-5.2) 11/17/22 19:20 Globulin 2.9 g/dL (1.3-4.6) 11/17/22 19:20 Lipase 39 U/L (13-60) 11/17/22 20:35 Discharge Plan Discharge Patient Disposition: Home Clinical Impression: Chest pain, Hypertension Condition: Stable Prescriptions: New amlodipine 10 mg tablet 10 mg PO DAILY Qty: 30 0RF Discontinued amlodipine 5 mg tablet 5 mg PO DAILY Qty: 30 0RF No Action morphine 60 mg tablet extended release 60 mg PO Q12H morphine 15 mg tablet extended release 15 mg PO Q12H gabapentin 800 mg tablet 800 mg PO QID metoprolol tartrate 50 mg tablet 50 mg PO BID tamsulosin [Flomax] 0.4 mg capsule 0.4 mg PO DAILY quetiapine [Seroquel] 400 mg tablet 400 mg PO .9 pm Qty: 30 3RF Rx Instructions: Take one tablet at 9 pm quetiapine [Seroquel] 100 mg tablet 100 mg PO BID Qty: 60 3RF Rx Instructions: Take one tablet twice per day as needed for anxiety/agitation prazosin 2 mg capsule 8 mg PO .QHS Qty: 120 3RF Rx Instructions: Take four capsules at bedtime fluoxetine [Prozac] 40 mg capsule 40 mg PO QAM Qty: 30 3RF Rx Instructions: Take one capsule every morning glipizide 5 mg tablet 5 mg PO DAILY varenicline 1 mg tablet 1 mg PO BID meclizine 25 mg tablet 25 mg PO QID PRN (Reason: dizziness) Qty: 20 0RF Discharge Orders: Discharge ED (Routine); Ordered 11/17/22 Ordered By: Red Goodrich Discharge Diet: Usual diet Discharge Activity: Increase activity as tolerated Patient Instructions: Chest Pain (ED), Hypertension (ED) Activity Restrictions/Additional Instructions: Thank you for visiting the emergency department. You were seen and evaluated for chest pain and high blood pressure. The exact cause of your symptoms is unclear though does not appear to need inpatient management at this time. You are low risk by heart score however given your history I do believe that outpatient further testing is appropriate. I will message case management for outpatient testing. Please follow-up with your primary care provider. I will also increase your amlodipine from 5 mg daily to 10 mg daily. Please continue your other medications as previously prescribed. Return to the emergency department for recurrent or worsening symptoms or anything else that you are concerned about a feel needs emergency department evaluation. Coding Level of Care Code ED Bag Bailer for Maria Esther Waldrop Exam Comprehensive
--- NOTE | 2022-11-17 19:29 | XRR_ITS ---
PROCEDURE INFORMATION: Exam: XR Chest Exam date and time: 11/17/2022 7:39 PM Age: 52 years old Clinical indication: Pain; Chest pressure; Prior surgery; Surgery date: 6+ months; Surgery type: Cervical spine; Additional info: Cp TECHNIQUE: Imaging protocol: Radiologic exam of the chest. Views: 1 view. COMPARISON: CR (CHEST, ) 10/10/2022 9:27 PM FINDINGS: Lungs: Unremarkable. No consolidation. Pleural spaces: Unremarkable. No pleural effusion. No pneumothorax. Heart/Mediastinum: Unremarkable. No cardiomegaly. Bones/joints: C-spine fusion hardware. Degenerative changes of the shoulders. XR/XR chest 1V portable [id number] IMPRESSION: No acute findings.
--- NOTE | 2022-11-17 19:29 | ECG_ITS ---
[facility] Test Date: 2022-11-17 Pat Name: Mert Spain Department: Room: Gender: Male [employer]: : 1970 Requested By: Red Goodrich Order Number: [id number] Ramirez MD: Mic Marvin M.D. Measurements Intervals [place] Rate: 87 P: 67 LA: 138 QRS: -12 QRSD: 88 T: 71 QT: 373 QTc: 450 Interpretive Statements SINUS RHYTHM POSSIBLE LEFT ATRIAL ENLARGEMENT [-0.1mV P-WAVE IN V1/V2] Compared to ECG 10/10/2022 23:37:09 No significant changes Electronically Signed On 11-18-2022 8:14:20 BOOTH OPERATOR by Mic Marvin M.D. [id number]
[2022-11-17] MEDS: aspirin 81 mg Chew Tablet 324 MG PO (19:36)
[2022-11-17] MEDS: nitroglycerin 0.4 mg sublingual Tablet SUBLINGUAL (19:39)
[2022-11-17 19:49] LABS: Basophils # 0.1 10^3/uL (0.0-0.1); Eosinophils # 0.3 10^3/uL (0.0-0.8); Eosinophils % 3.2 %; Hemoglobin 16.2 g/dL (11.7-16.6); Lymphocytes # 2.9 10^3/uL (0.8-4.8); Lymphocytes % 30.5 %; Mean Corpuscular HGB Conc 32.4 g/dL (30.0-36.0); Mean Corpuscular Volume 95.8 fl (80-94); Mean Platelet Volume 10.1 fL (7.4-10.4); Monocytes # 0.6 10^3/uL (0.2-0.9); Monocytes % 6.5 %; Neutrophils # 5.49 10^3/uL (1.8-7.7); Neutrophils % 58.4 %; Nucleated Red Blood Cells % 0 %; Platelet Count 240 10^3/cmm (130-400); Red Blood Count 5.22 10^6/uL (4.1-5.3); Red Cell Distribution Width 13.5 % (12.1-15.1); White Blood Count 9.4 10^3/uL (4.0-10.0)
[2022-11-17] MEDS: ondansetron 2 mg/ML SDV 2 mL 4 MG IVP (20:05)
--- NOTE | 2022-11-17 20:18 | XRR_ITS ---
PROCEDURE INFORMATION: Exam: XR Left Hip Exam date and time: 11/17/2022 8:26 PM Age: 52 years old Clinical indication: Patient HX: C/O left hip pain-unknown reason; Additional info: Atraumatic hip pain TECHNIQUE: Imaging protocol: Radiologic exam of the Left hip. Views: 2 or 3 views hip with pelvis when performed. COMPARISON: CT abdomen pelvis w con* [id number] 11/20/2021 4:53 PM FINDINGS: Bones/joints: Severe degenerative changes of the bilateral hip joints. No fracture identified. L4-L5 decompressive laminectomies. Soft tissues: Unremarkable. XR/XR hip LT 2-3V wo/w pel* [id number] IMPRESSION: 1. No fracture or acute finding. 2. 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
[2022-11-17 20:33] LABS: Alanine Aminotransferase 12 U/L (0-41); Albumin Level 4.6 g/dL (3.5-5.2); Alkaline Phosphatase 99 U/L (40-130); Aspartate Amino Transferase 15 U/L (0-40); Blood Urea Nitrogen 9 mg/dL (6-20); Calcium 10.6 mg/dL (8.5-10.5); Carbon Dioxide 28 mmol/L (22-29); Chloride 100 mmol/L (98-107); Globulin 2.9 g/dL (1.3-4.6); Glomerular Filtration Rate 118.4 mL/min (90-130); Glucose 106 mg/dL (65-115); NT Pro B Type Natriuretic Pept 11 pg/mL (0-125); Osmolality Calculated 287 mOsm/kg (285-295); Sodium 139 mmol/L (136-145); Total Bilirubin 0.3 mg/dL (0.15-1.2); Total Protein 7.5 g/dL (6.6-8.7)
[2022-11-17 20:37] LABS: Anion Gap 15.2 (5-19)
[2022-11-17 20:38] LABS: Potassium 4.2 mmol/L (3.5-5.1)
[2022-11-17] MEDS: metoclopramide 5 mg/mL SDV 2 mL 10 MG IVP (21:10)
[2022-11-17] MEDS: diphenhydrAMINE 50 mg/mL SDV 1mL 12.5 MG IVP (21:10)
[2022-11-17 21:13] VITALS: BP 175/107; PULSE 85; RESP 16; O2SAT 97
[2022-11-17 21:15] VITALS: BP 168/102; PULSE 85; RESP 16; O2SAT 97
[2022-11-17 21:20] LABS: Troponin(5th) Baseline 10 ng/L (0-15)
[2022-11-17 21:22] LABS: Lipase 39 U/L (13-60)
--- NOTE | 2022-11-17 21:50 | ECG_ITS ---
[facility] Test Date: 2022-11-17 Pat Name: Mert Spain Department: Room: Gender: Male [employer]: : 1970 Requested By: Red Goodrich Order Number: [id number] Ramirez MD: Mic Marvin M.D. Measurements Intervals [place] Rate: 72 P: 28 PA: 143 QRS: -11 QRSD: 83 T: 59 QT: 408 QTc: 447 Interpretive Statements SINUS RHYTHM Compared to ECG 10/10/2022 23:37:09 No significant changes Electronically Signed On 11-18-2022 8:12:13 APPEALS ANALYST by Mic Marvin M.D. [id number]
[2022-11-17 22:43] LABS: Troponin 5 2HR 11.04 ng/L (0-15)
[2022-11-17 22:56] LABS: Troponin 5 2HR Delta 1.04 ABS# (0-10)
[2022-11-17 23:36] VITALS: BP 165/95; PULSE 98; RESP 16; O2SAT 98
--- NOTE | 2022-11-18 09:45 | DCPLANNER ---
Addendum entered by Nannette Cardona 01/19/23 07:48: Patient had an echo and a stress test - patient attended both appointments. Addendum entered by Nannette Cardona 11/24/22 15:08: Patient has an outpatient stress test and echo scheduled for , December 24, 2022. The stress test is scheduled for 8:15 and the echo is scheduled for 11:15. Centralized scheduling will call patient with appointment information. Original Note: transit planning manager had message to schedule an outpatient stress test and echo cardiogram. transit planning manager faxed signed order to centralized scheduling, who will call patient with appointment information.
== END 2022-11-17 23:18 | disposition home or self-care (01) ==
PROVIDERS: Emergency Provider Emergency Medicine; PCP Family Medicine
DX: R07.9 Chest pain, unspecified (principal); I10 Essential (primary) hypertension; Z79.84 Long term (current) use of oral hypoglycemic drugs; F17.210 Nicotine dependence, cigarettes, uncomplicated
CPT/HCPCS: 71045; 73502; 80053; 83690; 83880; 84484; 85025; 93005; 96374; 96375; 99285; J1200; J2405; J2765

== ENCOUNTER 2022-12-13 12:47 | Emergency (ER) | payer MEDICARE, MEDICAID, SELFPAY ==
--- NOTE | 2022-12-13 13:00 | ED_ITS ---
HPI - Back Pain/Injury General: Chief Complaint: Back Pain/Injury Stated Complaint: LOW BACK PAIN Time Seen by Provider: 12/13/22 12:49 Source: patient Mode of arrival: EMS Limitations: no limitations History of Present Illness: This 52-year-old male with a history of chronic back and neck pain presents to the ER for evaluation following a fall. While coming out of latter-day and heading towards his car, patient lost his balance and fell. 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 Patient landed on his back, aggravating his back pain. He also reports that pain shoots down his left leg. However, there is no urinary or fecal incontinence. Patient currently takes morphine for his chronic pain. EMS reports that on arrival to the scene, patient's blood sugar was 61. They gave D10 and blood sugar recheck was 213. Patient was alert throughout the whole time with no reports of loss of consciousness. He denies any head injury. He is clinically stable. Review of Systems General: Reports: 10 or more systems reviewed and unremarkable except in HPI and below Musc: Reports: back pain and extremity pain (Back pain radiates down the left leg.) PFSH ED PFSH: Medical History Bereavement Sudden loss of mother on 03/18/20 Loss of brother Chronic post-traumatic stress disorder (PTSD) Major depressive disorder, recurrent severe without psychotic features Panic disorder without agoraphobia Psychiatric care Family History Denies family history of CAD (coronary artery disease) Social History Smoking and tobacco status: current every day smoker Alcohol intake: never Physical Exam Const: COMMON NORMALS: no acute distress, patient oriented x3, no limitations and alert HENMT: COMMON NORMALS: normocephalic HEAD & SCALP: normocephalic OTHER: Healed surgical scar on the neck from previous surgery Eye: COMMON NORMALS: EOMs intact bilaterally Neck/C-Spine: COMMON NORMALS: full ROM and supple Chest: COMMONS NORMALS: normal inspection of the chest Resp: COMMON NORMALS: normal respiratory effort, No retractions, No use of acc essory muscles and clear to auscultation bilaterally AUSCULTATION: clear to auscultation bilaterally Cardio: COMMON NORMALS: regular rate, regular rhythm and No murmurs present (Cardio) RATE: regular rate RHYTHM: regular rhythm GI: COMMON NORMALS: Normal to inspection, nondistended, normoactive bowel sounds present and non-tender : COMMON NORMALS: Yes no CVA tenderness BLADDER/KIDNEY EXAM: Yes no CVA tenderness Back/Pelvis: COMMON NORMALS: no CVA tenderness Extremity: GENERAL: Yes normal exam except as noted Neuro: COMMON NORMALS: patient oriented x3 and no focal motor deficits SENSORIUM/ORIENTATION: Yes alert OTHER: Healed surgical scar in lumbar spine. Tenderness on palpation of the lumbar spine. There is no redness, swelling or sign of acute trauma/infection. No step deformity. There is no distal neurovascular deficit. Psych: COMMON NORMALS: mental status grossly normal and cooperative Course Vital Signs: Vital signs: Vital Signs Temperature 98.1 F 12/13/22 13:05 Pulse Rate 78 12/13/22 15:35 Respiratory Rate 18 12/13/22 15:35 Blood Pressure 138/79 12/13/22 15:35 Pulse Oximetry 98 12/13/22 15:18 Oxygen Delivery Me thod 12/13/22 15:18 MDM - Back Pain/Injury Medical Decision Making Medical decision making: Patient had a mechanical fall. X-rays are negative for fracture/dislocation. He was found to be hypoglycemic and that was controlled in the ER. Patient will be discharged home. He was advised to closely monitor his blood sugar and to follow-up with his primary care physician. Reasons to return were discussed. Labs 12/13/22 14:10 12/13/22 14:10 Radiology Impressions Lumbar Spine X-Ray 12/13/22 13:08 IMPRESSION: 1. Negative for fracture or dislocation. 2. Grade 1 retrolisthesis of L4 relative to L5 of 3.7 mm. 3. Multilevel lower thoracic and mid to lower lumbar spine moderate largely posterior disc space narrowing. 4. Productive endplate changes throughout the spine. 5. Scattered vascular calcifications. Pelvis X-Ray 12/13/22 13:08 IMPRESSION: 1. Negative for fracture or dislocation 2. Severe osteoarthritis of the hips bilaterally. 3. Lumbar spine degenerative disc space disease. Laboratory Results WBC 14.3 10^3/uL (4.0-10.0) H 12/13/22 14:10 RBC 4.85 10^6/uL (4.1-5.3) 12/13/22 14:10 Hgb 15.4 g/dL (11.7-16.6) 12/13/22 14:10 Hct 47.7 % (42.0-52.0) 12/13/22 14:10 MCV 98.4 fl (80-94) H 12/13/22 14:10 MCH 31.8 pg (28.0-34.0) 12/13/22 14:10 MCHC 32.3 g/dL (30.0-36.0) 12/13/22 14:10 RDW 13.1 % (12.1-15.1) 12/13/22 14:10 Plt Count 243 10^3/cmm (130-400) 12/13/22 14:10 MPV 10.5 fL (7.4-10.4) H 12/13/22 14:10 Neut % (Auto) 72.6 % 12/13/22 14:10 Lymph % (Auto) 17.6 % 12/13/22 14:10 Whitley % (Auto) 6.2 % 12/13/22 14:10 Eos % (Auto) 2.4 % 12/13/22 14:10 Baso % (Auto) 0.6 % 12/13/22 14:10 Neut # (Auto) 10.38 10^3/uL (1.8-7.7) H 12/13/22 14:10 Lymph # (Auto) 2.5 10^3/uL (0.8-4.8) 12/13/22 14:10 Whitley # (Auto) 0.9 10^3/uL (0.2-0.9) 12/13/22 14:10 Eos # (Auto) 0.4 10^3/uL (0.0-0.8) 12/13/22 14:10 Baso # (Auto) 0.1 10^3/uL (0.0-0.1) 12/13/22 14:10 Nucleated RBC % (auto) 0 % 12/13/22 14:10 Nucleated RBCs # 0.0 /100WBC 12/13/22 14:10 Sodium 135 mmol/L (136-145) L 12/13/22 14:10 Potassium 4.0 mmol/L (3.5-5.1) 12/13/22 14:10 Chloride 99 mmol/L (98-107) 12/13/22 14:10 Carbon Dioxide 28 mmol/L (22-29) 12/13/22 14:10 Anion Gap 12.0 (5-19) 12/13/22 14:10 BUN 7 mg/dL (6-20) 12/13/22 14:10 Creatinine 0.6 mg/dL (0.7-1.2) L 12/13/22 14:10 GFR Calculation 141.5 mL/min (90-130) H 12/13/22 14:10 Glucose 65 mg/dL (65-115) 12/13/22 14:10 POC Glucose 71 mg/dL (70-110) 12/13/22 14:06 Calculated Osmolality 276 mOsm/kg (285-295) L 12/13/22 14:10 Calcium 9.1 mg/dL (8.5-10.5) 12/13/22 14:10 Total Bilirubin 0.2 mg/dL (0.15-1.2) 12/13/22 14:10 AST 14 U/L (0-40) 12/13/22 14:10 ALT 16 U/L (0-41) 12/13/22 14:10 Alkaline Phosphatase 75 U/L (40-130) 12/13/22 14:10 Total Protein 6.8 g/dL (6.6-8.7) 12/13/22 14:10 Albumin 4.2 g/dL (3.5-5.2) 12/13/22 14:10 Globulin 2.6 g/dL (1.3-4.6) 12/13/22 14:10 Discharge Plan Discharge Patient Disposition: Home Clinical Impression: Fall, Back contusion, Hypoglycemia Condition: Stable Prescriptions: No Action morphine 60 mg tablet extended release 60 mg PO Q12H morphine 15 mg tablet extended release 15 mg PO Q12H gabapentin 800 mg tablet 800 mg PO QID metoprolol tartrate 50 mg tablet 50 mg PO BID tamsulosin [Flomax] 0.4 mg capsule 0.4 mg PO DAILY quetiapine [Seroquel] 400 mg tablet 400 mg PO .9 pm Qty: 30 3RF Rx Instructions: Take one tablet at 9 pm quetiapine [Seroquel] 100 mg tablet 100 mg PO BID Qty: 60 3RF Rx Instructions: Take one tablet twice per day as needed for anxiety/agitation prazosin 2 mg capsule 8 mg PO .QHS Qty: 120 3RF Rx Instructions: Take four capsules at bedtime fluoxetine [Prozac] 40 mg capsule 40 mg PO QAM Qty: 30 3RF Rx Instructions: Take one capsule every morning glipizide 5 mg tablet 5 mg PO DAILY varenicline 1 mg tablet 1 mg PO BID amlodipine 10 mg tablet 10 mg PO DAILY Qty: 30 0RF meclizine 25 mg tablet 25 mg PO QID PRN (Reason: dizziness) Qty: 20 0RF Discharge Orders: Discharge ED (Routine); Ordered 12/13/22 Ordered By: Veronica Perez Referrals: Girish Yo DO [Primary Care Provider] - Patient Instructions: Opioid Safety, Pain Management Activity Restrictions/Additional Instructions: Your x-rays show that you did not break your back as a result of the fall. Closely monitor your blood sugar to avoid hypoglycemia. Continue taking the pain medications you already have at home. Follow-up with your primary care physician within a week for reevaluation. Return with new or worsening symptoms. Coding Level of Care Code ED Operating Room Coordinator for Maria Esther Waldrop Exam Comprehensive
[2022-12-13 13:05] VITALS: BP 142/70; PULSE 74; TEMP 36.7; O2SAT 97
--- NOTE | 2022-12-13 13:08 | XRR_ITS ---
PROCEDURE INFORMATION: Exam: XR Pelvis Exam date and time: 12/13/2022 1:54 PM Age: 52 years old Clinical indication: Injury or trauma; Fall; Blunt trauma (contusions or hematomas); Bilateral; Pelvic region TECHNIQUE: Imaging protocol: Radiologic exam of the pelvis. Views: 1 or 2 view. COMPARISON: CR (PELVIS, ) 11/17/2022 8:26 PM FINDINGS: Bones/joints: Severe osteoarthritis of the hips bilaterally. Lumbar spine degenerative disc space disease. Soft tissues: Unremarkable. XR/XR pelvis 1-2V* [id number] IMPRESSION: 1. Negative for fracture or dislocation 2. Severe osteoarthritis of the hips bilaterally. 3. Lumbar spine degenerative disc space disease.
--- NOTE | 2022-12-13 13:08 | XRR_ITS ---
PROCEDURE INFORMATION: Exam: XR Lumbosacral Spine Exam date and time: 12/13/2022 1:54 PM Age: 52 years old Clinical indication: Injury or trauma; Fall; Blunt trauma (contusions or hematomas) TECHNIQUE: Imaging protocol: Radiologic exam of the lumbosacral spine. Views: 2 or 3 views. COMPARISON: CT lumbar spine wo con* [id number] 05/30/2017 2:20 PM FINDINGS: Bones/joints: Grade 1 retrolisthesis of L4 relative to L5 of 3.7 mm. Multilevel lower thoracic and mid to lower lumbar spine moderate largely posterior disc space narrowing. Productive endplate changes throughout the spine. Soft tissues: Unremarkable. Vasculature: Scattered vascular calcifications. XR/XR lumbar spine 2-3V* [id number] IMPRESSION: 1. Negative for fracture or dislocation. 2. Grade 1 retrolisthesis of L4 relative to L5 of 3.7 mm. 3. Multilevel lower thoracic and mid to lower lumbar spine moderate largely posterior disc space narrowing. 4. Productive endplate changes throughout the spine. 5. Scattered vascular calcifications.
[2022-12-13 14:09] LABS: Glucose Point of Care 71 mg/dL (70-110)
--- NOTE | 2022-12-13 14:19 | PC.NURSE ---
Pts blood sugar was 71, he said he felt shakey, i gave him some food and orange juice
[2022-12-13 14:26] LABS: Basophils # 0.1 10^3/uL (0.0-0.1); Basophils % 0.6 %; Eosinophils # 0.4 10^3/uL (0.0-0.8); Eosinophils % 2.4 %; Hematocrit 47.7 % (42.0-52.0); Hemoglobin 15.4 g/dL (11.7-16.6); Lymphocytes # 2.5 10^3/uL (0.8-4.8); Lymphocytes % 17.6 %; Mean Corpuscular HGB Conc 32.3 g/dL (30.0-36.0); Mean Corpuscular Hemoglobin 31.8 pg (28.0-34.0); Mean Corpuscular Volume 98.4 fl (80-94); Mean Platelet Volume 10.5 fL (7.4-10.4); Monocytes # 0.9 10^3/uL (0.2-0.9); Monocytes % 6.2 %; Neutrophils # 10.38 10^3/uL (1.8-7.7); Neutrophils % 72.6 %; Nucleated Red Blood Cells % 0 %; Platelet Count 243 10^3/cmm (130-400); Red Blood Count 4.85 10^6/uL (4.1-5.3); Red Cell Distribution Width 13.1 % (12.1-15.1); White Blood Count 14.3 10^3/uL (4.0-10.0)
[2022-12-13 14:39] VITALS: BP 138/73; PULSE 81; RESP 16; O2SAT 97
[2022-12-13 14:43] LABS: Alanine Aminotransferase 16 U/L (0-41); Albumin Level 4.2 g/dL (3.5-5.2); Alkaline Phosphatase 75 U/L (40-130); Aspartate Amino Transferase 14 U/L (0-40); Blood Urea Nitrogen 7 mg/dL (6-20); Calcium 9.1 mg/dL (8.5-10.5); Carbon Dioxide 28 mmol/L (22-29); Chloride 99 mmol/L (98-107); Globulin 2.6 g/dL (1.3-4.6); Glomerular Filtration Rate 141.5 mL/min (90-130); Glucose 65 mg/dL (65-115); Osmolality Calculated 276 mOsm/kg (285-295); Sodium 135 mmol/L (136-145); Total Bilirubin 0.2 mg/dL (0.15-1.2); Total Protein 6.8 g/dL (6.6-8.7)
[2022-12-13 15:15] VITALS: RESP 18
[2022-12-13] MEDS: morphine 4 mg/mL SDV 1 mL IVP (15:15)
[2022-12-13 15:18] VITALS: BP 141/76; PULSE 78; RESP 18; O2SAT 98
[2022-12-13 15:35] VITALS: BP 138/79; PULSE 78; RESP 18
== END 2022-12-13 15:37 | disposition home or self-care (01) ==
PROVIDERS: Emergency Provider Family Medicine; PCP Family Medicine
DX: S30.0XXA Contusion of lower back and pelvis, initial encounter (principal); Z79.84 Long term (current) use of oral hypoglycemic drugs; F17.210 Nicotine dependence, cigarettes, uncomplicated; W01.0XXA Fall on same level from slipping, tripping and stumbling without subsequent striking against object, initial encounter
CPT/HCPCS: 36415; 36416; 72100; 72170; 80053; 82962; 85025; 96374; 99284; J2270

== ENCOUNTER 2022-12-24 08:02 | Outpatient (CLI) | payer MEDICARE, MEDICAID, SELFPAY ==
--- NOTE | 2022-12-24 | USCV_ITS ---
[facility] Age: 52 Gender: M : 1970 Exam Date: 12/24/2022 11:01 Ordering Phys: Red Goodrich MD Technologist: AURELIO [place] [facility] [place]: CHEST PAIN BP: 123 / 82 HR: 74 Rhythm: Sinus Technical Quality: Adequate MEASUREMENTS (Male / Female) Normal Values 2D ECHO LVOT Diameter 2.0 cm LV Ejection Fraction MOD 2C 62.8 % LV Ejection Fraction 2C AL 63.7 % LA Diameter 3.5 cm LA Width 3.5 cm LA Height 4.2 cm RA Width 2.8 cm RA Height 4.0 cm Aorta at Sinotubular Diameter 1.7 cm IVC Diameter 1.4 cm M-MODE Aortic Annulus Diameter 3.5 cm LA Ao Ratio MM 1.0 MV E Point Septal Separation 0.3 cm DOPPLER AV Peak Velocity 130.0 cm/s LVOT Peak Velocity 116.0 cm/s AV Area Cont Eq vti 3.2 cm squared AV Area Cont Eq pk 2.9 cm squared MV Peak Velocity 108.0 cm/s MV Area PHT 3.2 cm squared Mitral E to A Ratio 1.1 MV E' Velocity 43.5 cm/s Mitral E to MV E' Ratio 6.5 Mitral E to LV E' Lateral Ratio 5.8 Mitral E to LV E' Septal Ratio 7.4 TR Peak Velocity 204.2 cm/s TR Peak Gradient 16.7 mmHg TR Mean Velocity 164.9 cm/s TR Mean Gradient 11.6 mmHg TR Velocity Time Integral 53.6 cm TV Peak E Velocity 58.0 cm/s Right Atrial Pressure 3.0 mmHg Pulmonary Artery Systolic Pressu 19.7 mmHg PV Peak Velocity 89.0 cm/s RV Acceleration Time 0.1 s RV Ejection Time 0.3 s RV AcT/ET 0.3 FINDINGS Left Ventricle Normal left ventricular size, systolic function and wall thickness, with no regional wall motion abnormalities. Left ventricular ejection fraction is estimated at 55-60 %. Normal diastolic function. Right Ventricle Normal right ventricular size and systolic function. Normal right ventricular systolic pressure. Right Atrium Normal right atrial size. Left Atrium Upper normal left atrial size. Mitral Valve Structurally normal mitral valve. No mitral valve stenosis. No significant mitral valve regurgitation. Aortic Valve Mildly thickened trileaflet aortic valve. No aortic valve stenosis. No aortic valve regurgitation. Tricuspid Valve Structurally normal tricuspid valve. No tricuspid valve stenosis. Trace to mild tricuspid valve regurgitation. Pulmonic Valve Structurally normal pulmonic valve. No pulmonary valve stenosis. Trace pulmonary valve regurgitation. Pericardium No pericardial effusion. Aorta Normal size aortic root and proximal ascending aorta. IVC Normal IVC dimension with >50% respiratory change of the inferior vena cava. CONCLUSIONS 1. Normal left ventricular size, systolic function and wall thickness, with no regional wall motion abnormalities. Left ventricular ejection fraction is estimated at 55-60 %. Normal diastolic function. 2. Trace to mild tricuspid valve regurgitation. 3. No prior similar studies to compare. Renee Casas MD (Electronically Signed) Final Date: 24 December 2022 13:29 S
[2022-12-24 08:40] VITALS: BMI 26.4
--- NOTE | 2022-12-24 08:52 | ECG_ITS ---
[facility] Test Date: 2022-12-24 Pat Name: Mert Spain Department: Room: Gender: Male Campus Dean: Charley Rosenbaum : 1970 Requested By: Red Goodrich Order Number: [id number] Ramirez MD: Renee Casas M.D. Interpretive Statements NAME OF STUDY: LEXISCAN SESTAMIBI STRESS TEST INDICATION: Chest Pain PROCEDURE: At the baseline, the blood pressure was 127/73 mm Hg with a heart rate of 68 bpm. The electrocardiogram showed sinus rhythm, normal axis. Normal ST and T's. ??? The Lexiscan was infused over a period of 20 seconds. A total of 0.4 milligrams of Lexiscan was infused. The stress phase was continued for a total of 5 minutes. Heart rate at the end of the stress phase was 89 bpm with a blood pressure of 103/65 mm Hg. The EKG at the peak infusion revealed sinus rhythm with no significant ST-T wave chnages. The study was terminated due to protocol completion. ??? Sestamibi was injected 20 seconds after the Lexiscan infusion. ??? Blood pressure at the end of the recovery phase was 96/61 mm Hg with a heart rate of 88 beats per minute. ??? CONCLUSION: 1. Normal EKG response to LexiScan infusion. 2. No LexiScan induced chest pain or cardiac arrhythmia. 3. Normal blood pressure and heart rate response. 4. Sestamibi/sestamibi perfusion scan pending; see separate report. Electronically Signed On 12-26-2022 12:50:42 INSPECTOR FILTERS by Renee Casas M.D. [id number]
--- NOTE | 2022-12-24 08:52 | NMCV_ITS ---
NM dylan perf SPECT r/s* [id number] Mert Spain Age: 52 Gender: M : 1970 Exam Date: 12/24/2022 09:17 Ordering Phys: Red Goodrich MD Technologist: ADRI Mello Exam Location: [facility] Indications: CHEST PAIN STRESS TEST [facility] IMAGE PROTOCOL Rest/Stress 1 Lexiscan Day Radiopharmaceutical Dose (mCi) Administration Site Administered by Rest: Tc-99m 10.6 IV ADRI Mello Sestamibi Stress:Tc-99m 32.4 IV ADRI Robertson Sestamibi Rest: 24-Dec-2022 60 Discovery 630 Stress: 24-Dec-2022 30 Discovery 630 0.4mg Lexiscan. Supine position only as patient was unable to lay prone. SPECT RESULTS Technical Quality: Excellent Raw Data Analysis: Normal Image Corrections: No attenuation or motion correction applied Summed Stress Score: 0 Summed Rest Score: 0 Summed Difference Score: 0 PERFUSION FINDINGS SPECT images demonstrate homogeneous tracer distribution throughout the myocardium. FUNCTIONAL RESULTS (calculated via Gated SPECT) Stress Image LV EF (%): 68 Stress EDV (mL):95 TID: 1.06 Stress ESV (mL):30 FUNCTIONAL FINDINGS: The left ventricle is normal in size. Transient Ischemia Dilatation of 1.1. The left ventricular ejection fraction is normal with a value of 68%. There is hyperdynamic left ventricular wall thickening. IMPRESSIONS 1. Myocardial perfusion imaging is normal. 2. Overall left ventricular systolic function is normal without regional wall motion abnormalities, LVEF=68%. 3. EKG portion of the study will be reported separately. 4. Scan indicates low risk for cardiac events. Renee Casas MD (Electronically Signed) Final Date: 24 December 2022 13:35 S
[2022-12-24] MEDS: regadenoson 0.4 Mg/5 ml Syringe IVP (09:45)
[2022-12-24 09:53] VITALS: BP 96/61; PULSE 88
== END 2022-12-24 08:03 | disposition home or self-care (01) ==
LOC: CDL 08:06
PROVIDERS: PCP Family Medicine; Visit Provider Emergency Medicine
DX: R07.9 Chest pain, unspecified (principal); I07.1 Rheumatic tricuspid insufficiency
CPT/HCPCS: 36415; 78452; 93017; 93306; 96374; A9500; J2785

== ENCOUNTER 2023-04-09 15:37 | Emergency (ER) | payer MEDICARE, MEDICAID, SELFPAY ==
[2023-04-09 15:43] VITALS: BP 102/71; PULSE 82; RESP 17; TEMP 36.5; O2SAT 97
--- NOTE | 2023-04-09 16:12 | XRR_ITS ---
PROCEDURE INFORMATION: Exam: XR Left Elbow Exam date and time: 04/09/2023 4:21 PM Age: 53 years old Clinical indication: Patient HX: C/O pain left elbow starting 04/09/23 a. M. [place] a pop; Additional info: Injury TECHNIQUE: Imaging protocol: Radiologic exam of the left elbow. 3image(s) are provided. Views: 3 or more views. COMPARISON: CR XR shoulder LT min 2V* [id number] 06/25/2016 3:24 AM. No previous elbow radiograph is currently available. FINDINGS: Bones/joints: Osseous alignment is maintained.No displaced fracture or dislocation is appreciated. No significant anterior or posterior fat pad elevation to suggest acute effusion is appreciated. There is some mild chronic degenerative spurring of the humeral epicondyles. No cortical irregularity or periosteal reaction is appreciated. There is also some mild chronic appearing spurring of the radial head level. Soft tissues: No radiopaque foreign body or subcutaneous emphysema is appreciated. XR/XR elbow LT min 3V* [id number] IMPRESSION: There are mild chronic appearing degenerative changes about the elbow with maintained alignment.No fracture or dislocation is appreciated.
--- NOTE | 2023-04-09 16:31 | ED_ITS ---
HPI - Extremity Problem General: Chief complaint: Extremity Injury, Upper Stated complaint: Left Arm huting/ swelling Time Seen by Provider: 04/09/23 16:06 Source: patient Mode of arrival: ambulatory Limitations: no limitations History of Present Illness: 53-year-old male states he has been some left elbow pain since this morning states he felt like it had a pop earlier this morning but when he did wake up he has been having pain. Its over the lateral portion of the elbow worse with movement improved with rest denies any specific injury he does have range of motion available. Denies any fevers denies any wrist or shoulder pain. Associated symptoms: Deny chest pain, fever(s) or rash Review of Systems Const: Denies: fever(s), chills, body aches or change in appetite Eyes: Denies: eye discomfort ENMT: Denies: throat pain or dental pain Card: Denies: chest pain Resp: Denies: dyspnea GI: Denies: abdominal pain, nausea, vomiting or diarrhea Musc: Reports: extremity pain; Denies: neck pain or back pain Skin/Breast: Denies: rash Neuro: Denies: headache(s) PFSH ED PFSH: Medical History Bereavement Sudden loss of mother on 03/18/20 Loss of brother Chronic post-traumatic stress disorder (PTSD) Major depressive disorder, recurrent severe without psychotic features Panic disorder without agoraphobia Family History Denies family history of CAD (coronary artery disease) Social History Smoking and tobacco status: current every day smoker Alcohol intake: never Substance/Drug Use: never Physical Exam Const: COMMON NORMALS: patient oriented x3 HENMT: COMMON NORMALS: normocephalic and atraumatic HEAD & SCALP: normocephalic and atraumatic Eye: GENERAL EYE: appearance normal, both eyes and all related structures Neck/C-Spine: COMMON NORMALS: supple Chest: COMMONS NORMALS: normal inspection of the chest Resp: COMMON NORMALS: normal respiratory effort Cardio: COMMON NORMALS: regular rate and regular rhythm RATE: regular rate RHYTHM: regular rhythm GI: INSPECTION: Yes normal to inspection Extremity: OTHER: Tenderness over lateral elbow some pain with range of motion no deformity distal pulses sensations intact no warmth over the joint. Neuro: COMMON NORMALS: patient oriented x3 Psych: COMMON NORMALS: mental status grossly normal Skin: COMMON NORMALS: no rashes or lesions noted GENERAL SKIN EXAM: no rashes or lesions noted Course Vital Signs: Vital signs: Vital Signs Temperature 97.7 F 04/09/23 15:43 Pulse Rate 82 04/09/23 15:43 Respiratory Rate 17 04/09/23 15:43 Blood Pressure 102/71 04/09/23 15:43 Pulse Oximetry 97 04/09/23 15:43 Oxygen Delivery Me thod Room Air 04/09/23 15:43 MDM - Extremity (Nontraumatic) Medical Decision Making Patient presents here with left elbow pain he is tender over the lateral elbow either strain or epicondylitis. X-ray shows no signs of fracture he has no warmth no signs of septic joint. We will Jorge wrap he is to ice and will do a nti-inflammatories he is to follow-up orthopedics return if worsening. Discharge Plan Discharge Patient Disposition: Home Clinical Impression: Strain of elbow, left Condition: Stable Prescriptions: New Naprosyn 500 mg tablet 500 mg PO BID PRN (Reason: pain) Qty: 20 0RF No Action morphine 60 mg tablet extended release 60 mg PO Q12H morphine 15 mg tablet extended release 15 mg PO Q12H gabapentin 800 mg tablet 800 mg PO QID metoprolol tartrate 50 mg tablet 50 mg PO BID tamsulosin [Flomax] 0.4 mg capsule 0.4 mg PO DAILY quetiapine [Seroquel] 400 mg tablet 400 mg PO .9 pm Qty: 30 3RF Rx Instructions: Take one tablet at 9 pm quetiapine [Seroquel] 100 mg tablet 100 mg PO BID Qty: 60 3RF Rx Instructions: Take one tablet twice per day as needed for anxiety/agitation prazosin 2 mg capsule 8 mg PO .QHS Qty: 120 3RF Rx Instructions: Take four capsules at bedtime fluoxetine [Prozac] 40 mg capsule 40 mg PO QAM Qty: 30 3RF Rx Instructions: Take one capsule every morning glipizide 5 mg tablet 5 mg PO DAILY varenicline 1 mg tablet 1 mg PO BID amlodipine 10 mg tablet 10 mg PO DAILY Qty: 30 0RF meclizine 25 mg tablet 25 mg PO QID PRN (Reason: dizziness) Qty: 20 0RF Discharge Orders: Discharge ED (Routine); Ordered 04/09/23 Ordered By: Luis Vee Referrals: Girish Yo DO [Primary Care Provider] - Elmer Galindo MD [Physician] - 1-3 days Discharge Diet: Advance as tolerated Discharge Activity: Resume usual activity Patient Instructions: Elbow Strain (ED) Coding Level of Care Code ED Biological Engineer for Maria Esther Waldrop
[2023-04-09] MEDS: ketorolac 30 mg/mL INJ IM (16:43)
--- NOTE | 2023-04-12 08:42 | DCPLANNER ---
Addendum entered by Nannette Cardona 04/21/23 10:29: appointment cancelled Addendum entered by Nannette Cardona 04/13/23 09:28: Patient has a follow up appointment scheduled for Sunday, April 16, 2023 at 10:[address] Galindo at ortho. Original Note: category manager had message to schedule a follow up appointment for patient with ortho. category manager sent patients information to the front office staff at ortho. Patients information will be printed and reviewed. Clinic will call patient with appointment information.
== END 2023-04-09 16:47 | disposition home or self-care (01) ==
PROVIDERS: Emergency Provider Emergency Medicine; PCP Family Medicine
DX: S46.812A Strain of other muscles, fascia and tendons at shoulder and upper arm level, left arm, initial encounter (principal); Z79.84 Long term (current) use of oral hypoglycemic drugs; F17.210 Nicotine dependence, cigarettes, uncomplicated; X58.XXXA Exposure to other specified factors, initial encounter
CPT/HCPCS: 73080; 96372; 99284; J1885

== ENCOUNTER → 2023-06-22 10:45 | Outpatient (BNVA) | payer MEDICARE, MEDICAID, SELFPAY | PROVIDERS: PCP Family Medicine; Visit Provider Student in an Organized Health Care Education/Training Program | DX: S46.312A Strain of muscle, fascia and tendon of triceps, left arm, initial encounter; X58.XXXA Exposure to other specified factors, initial encounter | CPT/HCPCS: 73080; 99203 ==

== ENCOUNTER 2023-06-30 15:37 | Outpatient (CLI) | payer MEDICARE, MEDICAID, SELFPAY ==
--- NOTE | 2023-06-30 16:00 | MR_ITS ---
WS: [id number] MRI LEFT ELBOW WITHOUT CONTRAST. COMPARISON: Radiographs 06/22/2023 Multiplanar, multisequence imaging is performed without contrast. This study is limited due to motion artifact on several sequences despite repeated attempts. No marrow signal abnormalities. No fractures or dislocation. There is no significant joint effusion. Normal appearance of the radial head. The triceps tendon appears to be intact. There is no edema or displacement. Normal attachment at the olecranon. No significant thinning or atrophy. No muscle edema. Seen only on the proton density seque nce is a small amount of increased intermediate signal in the distal tendon which may be from mild te ndinopathy. There is a small amount of soft tissue edema posterior and medial and extending inferior to the elbow joint. No fluid collection. Subcutaneous edema does not appear to be associated with the tendon. The common flexor and common extensor tendons are intact. No significant degenerative change at the e lbow. IMPRESSION: 1. Triceps tendon appears intact. There is a tiny amount of increased signal in the central distal te ndon from tendinopathy. No significant retraction. 2. No joint effusion. 2. Superficial soft tissue edema along the posterior medial elbow extending inferior to the joint.
== END 2023-06-30 15:38 | disposition home or self-care (01) ==
PROVIDERS: PCP Family Medicine; Visit Provider Student in an Organized Health Care Education/Training Program
DX: S46.319A Strain of muscle, fascia and tendon of triceps, unspecified arm, initial encounter (principal); X58.XXXA Exposure to other specified factors, initial encounter; R60.0 Localized edema
CPT/HCPCS: 73221

== ENCOUNTER → 2023-07-09 09:54 | Outpatient (BNVA) | payer MEDICARE, MEDICAID, SELFPAY | PROVIDERS: PCP Family Medicine; Visit Provider Student in an Organized Health Care Education/Training Program | DX: M67.922 Unspecified disorder of synovium and tendon, left upper arm; S59.902A Unspecified injury of left elbow, initial encounter; X58.XXXA Exposure to other specified factors, initial encounter | CPT/HCPCS: 99213 ==

== ENCOUNTER 2023-12-04 12:06 | Emergency (ER) | payer MEDICARE, MEDICAID, SELFPAY ==
[2023-12-04 12:12] VITALS: PULSE 78; RESP 17; TEMP 36.8; O2SAT 94; BMI 26.1
[2023-12-04] MEDS: sodium chloride 0.9% 1,000 ML 999 ML IV (12:36)
--- NOTE | 2023-12-04 12:37 | W.ED.ABDPA2 ---
HPI - Abdominal Pain General: Chief Complaint: Abdominal Pain Stated Complaint: ABD PAIN Time Seen by Provider: 12/04/23 12:09 History of Present Illness: Patient presents to the ER via EMS for abdominal pain. This pain started approximately 940 last night while the patient was in bed. Patient is also having black stools and nausea since abdominal pain start however patient also said he has been using Pepto-Bismol. Patient states the pain has been constant throughout the night and only getting worse. Patient says he is never had pain like this before nor has he had any abdominal surgeries. Review of Systems General: Reports: 10 or more systems reviewed and unremarkable except in HPI and below PFSH ED PFSH: Medical History Bereavement Sudden loss of mother on 03/18/20 Loss of brother Panic disorder without agoraphobia Chronic post-traumatic stress disorder (PTSD) Major depressive disorder, recurrent severe without psychotic features Family History Denies family history of CAD (coronary artery disease) Social History Smoking and tobacco/nicotine status: current every day tobacco/nicotine user Alcohol intake: never Substance/Drug Use: never Physical Exam Const: COMMON NORMALS: no acute distress, average body habitus, patient oriented x3, no limitations, healthy appearing, alert and well nourished HENMT: COMMON NORMALS: normocephalic, atraumatic, hearing grossly normal bilaterally, external ears normal, Normal external nose present, moist oral mucous membranes and oropharynx normal HEAD & SCALP: normocephalic and atraumatic NOSE: Normal external nose present EXTERNAL EAR: Yes external ears normal Neck/C-Spine: COMMON NORMALS: no JVD Chest: COMMONS NORMALS: normal inspection of the chest and normal palpation of entire chest wall Resp: COMMON NORMALS: normal respiratory effort, No retractions, No use of accessory muscles and clear to auscultation bilaterally AUSCULTATION: clear to auscultation bilaterally Cardio: COMMON NORMALS: no JVD, regular rate, regular rhythm, S1 normal heart sound present, S2 normal heart sound present, No gallops present (Cardio), No clicks present (Cardio), No murmurs present (Cardio) and No rub (Cardio) RATE: regular rate RHYTHM: regular rhythm HEART SOUNDS: S1 normal heart sound present and S2 normal heart sound present GI: COMMON NORMALS: Normal to inspection, nondistended, normoactive bowel sounds present, Soft to palpation, No hepatosplenomegaly present and no masses; negative for non-tender (Diffusely tender) PALPATION: Yes Soft to palpation and Yes No hepatosplenomegaly present Neuro: COMMON NORMALS: patient oriented x3 SENSORIUM/ORIENTATION: Yes alert Course Vital Signs: Vital signs: Vital Signs Temperature 98.3 F 12/04/23 12:12 Pulse Rate 78 12/04/23 12:12 Respiratory Rate 17 12/04/23 12:40 Pulse Oximetry 95 12/04/23 12:40 MDM - Abdominal Pain Medical Decision Making Presents with abdominal pain. Patient had lab work and a contrasted CT scan of the abdomen pelvis all of which was essentially benign. Patient was given 4 mg morphine 10 mg Zofran IV the bolus normal saline. Patient be discharged home to follow-up with his PCP for further evaluation testing. Differential Diagnosis Likely abdominal pain; Unlikely acute appendicitis, calculus of kidney, constipation, diverticulitis, endometriosis, gastroenteritis, pancreatitis or small bowel obstruction Medical Records I reviewed the patient's medical records. Lab Data I reviewed the patient's lab results. 12/04/23 12:57 12/04/23 12:57 Labs/Radiology: Radiology Impressions Abdomen/Pelvis CT 12/04/23 13:27 IMPRESSION: No acute findings. Laboratory Results WBC 9.50 10^3/uL (3.29-11.43) 12/04/23 12:57 RBC 5.05 10^6/uL (3.85-5.65) 12/04/23 12:57 Hgb 15.80 g/dL (11.27-16.99) 12/04/23 12:57 Hct 49.3 % (37-53) 12/04/23 12:57 MCV 97.6 fl (82-101) 12/04/23 12:57 MCH 31.3 pg (27-33) 12/04/23 12:57 MCHC 32.0 g/dL (30-55) 12/04/23 12:57 RDW 12.8 % (12.1-15.1) 12/04/23 12:57 Plt Count 198 10^3/cmm (157-399) 12/04/23 12:57 MPV 10.2 fL (7.4-10.4) 12/04/23 12:57 Neut % (Auto) 68.5 % 12/04/23 12:57 Lymph % (Auto) 22.2 % 12/04/23 12:57 Mckenzie % (Auto) 6.0 % 12/04/23 12:57 Eos % (Auto) 1.9 % 12/04/23 12:57 Baso % (Auto) 0.7 % 12/04/23 12:57 Neut # (Auto) 6.50 10^3/uL (1.8-7.7) 12/04/23 12:57 Lymph # (Auto) 2.1 10^3/uL (0.8-4.8) 12/04/23 12:57 Mckenzie # (Auto) 0.6 10^3/uL (0.2-0.9) 12/04/23 12:57 Eos # (Auto) 0.2 10^3/uL (0.0-0.8) 12/04/23 12:57 Baso # (Auto) 0.1 10^3/uL (0.0-0.1) 12/04/23 12:57 Nucleated RBC % (auto) 0 % 12/04/23 12:57 Nucleated RBCs # 0.0 /100WBC 12/04/23 12:57 Sodium 138 mmol/L (136-145) 12/04/23 12:57 Potassium 3.9 mmol/L (3.5-5.1) 12/04/23 12:57 Chloride 103 mmol/L (98-107) 12/04/23 12:57 Carbon Dioxide 26 mmol/L (22-29) 12/04/23 12:57 Anion Gap 12.9 (5-19) 12/04/23 12:57 BUN 6 mg/dL (6-20) 12/04/23 12:57 Creatinine 0.5 mg/dL (0.7-1.2) L 12/04/23 12:57 GFR Calculation 173.9 mL/min (90-130) H 12/04/23 12:57 Glucose 80 mg/dL (65-115) 12/04/23 12:57 Calculated Osmolality 283 mOsm/kg (285-295) L 12/04/23 12:57 Calcium 9.3 mg/dL (8.5-10.5) 12/04/23 12:57 Magnesium 2.2 mg/dL (1.7-2.3) 12/04/23 12:57 Total Bilirubin 0.2 mg/dL (0.15-1.2) 12/04/23 12:57 AST 12 U/L (0-40) 12/04/23 12:57 ALT 11 U/L (0-41) 12/04/23 12:57 Alkaline Phosphatase 94 U/L (40-130) 12/04/23 12:57 C-Reactive Protein 7.5 mg/L (0.0-4.9) H 12/04/23 12:57 Total Protein 6.9 g/dL (6.6-8.7) 12/04/23 12:57 Albumin 3.6 g/dL (3.5-5.2) 12/04/23 12:57 Globulin 3.3 g/dL (1.3-4.6) 12/04/23 12:57 Lipase 106 U/L (13-60) H 12/04/23 12:57 Urine Color Yellow (Yellow) 12/04/23 15:30 Urine Appearance Clear (CLEAR) 12/04/23 15:30 Urine pH 8 (5-7) H 12/04/23 15:30 Ur Specific [place] 1.010 (1.005-1.030) 12/04/23 15:30 Urine Protein Neg (Negative) 12/04/23 15:30 Urine Glucose (UA) Norm (Normal) 12/04/23 15:30 Urine Ketones Negative (Negative) 12/04/23 15:30 Urine Blood Neg (Negative) 12/04/23 15:30 Urine Nitrate Negative (Negative) 12/04/23 15:30 Urine Bilirubin Neg (Negative) 12/04/23 15:30 Prot Sulfosalicylic Acd Negative (Negative) 12/04/23 15:30 Urine Urobilinogen Norm mg/dL (Negative) 12/04/23 15:30 Ur Leukocyte Esterase Negative (Negative) 12/04/23 15:30 All radiology interpretation(s) finalized by discharge Discharge Plan Discharge Patient Disposition: Home Clinical Impression: Abdominal pain Qualifiers: Abdominal location: unspecified location Qualified Code(s): R10.9 - Unspecified abdominal pain Nausea & vomiting Qualifiers: Vomiting type: unspecified Qualified Code(s): R11.2 - Nausea with vomiting, unspecified Condition: Stable Prescriptions: No Action morphine 60 mg tablet extended release 60 mg PO Q12H morphine 15 mg tablet extended release 15 mg PO Q12H gabapentin 800 mg tablet 800 mg PO QID tamsulosin [Flomax] 0.4 mg capsule 0.4 mg PO DAILY fluoxetine [Prozac] 40 mg capsule 40 mg PO QAM Qty: 30 3RF glipizide 10 mg tablet 10 mg PO BID metoprolol tartrate 25 mg tablet 25 mg PO DAILY metformin 500 mg tablet 1,000 mg PO BID [id number]-kkjuuajrdmnvo-qhku 50-325-40 mg tablet 1 tab PO Q4H PRN (Reason: Pain) terbinafine HCl 250 mg tablet 250 mg PO DAILY famotidine 20 mg tablet 20 mg PO BID baclofen 10 mg tablet 10 - 20 mg PO TID PRN (Reason: Muscle Spasm) Colace 100 mg Capsule 200 mg PO BID diazepam 5 mg tablet 5 mg PO Q8H PRN (Reason: Anxiety) diclofenac sodium 1 % gel 4 g TOPICAL QID magnesium oxide 400 mg magnesium Tablet 400 mg PO DAILY atorvastatin 40 mg tablet 40 mg PO DAILY Discharge Orders: Discharge ED (Routine); Ordered 12/04/23 Ordered By: Dickson Moss Referrals: Girish Yo DO [Primary Care Provider] - 1 week Patient Instructions: Abdominal Pain (ED) Activity Restrictions/Additional Instructions: Please take all medicine as directed. Your lab work, urinalysis, and CT scan did not show any acute cause for your abdominal pain. Please follow-up with your family practice physician within the next 7 days for further evaluation and treatment. Coding Level of Care Code ED Back End Architect for [facility]
[2023-12-04] MEDS: metoclopramide 5 mg/mL SDV 2 mL 10 MG IVP (12:39)
[2023-12-04 12:40] VITALS: RESP 17; O2SAT 95
[2023-12-04] MEDS: morphine 4 mg/mL SDV 1 mL IVP (12:40)
[2023-12-04 13:05] LABS: Basophils # 0.1 10^3/uL (0.0-0.1); Basophils % 0.7 %; Eosinophils # 0.2 10^3/uL (0.0-0.8); Eosinophils % 1.9 %; Hematocrit 49.3 % (37-53); Lymphocytes # 2.1 10^3/uL (0.8-4.8); Lymphocytes % 22.2 %; Mean Corpuscular Hemoglobin 31.3 pg (27-33); Mean Corpuscular Volume 97.6 fl (82-101); Mean Platelet Volume 10.2 fL (7.4-10.4); Monocytes # 0.6 10^3/uL (0.2-0.9); Neutrophils % 68.5 %; Nucleated Red Blood Cells % 0 %; Platelet Count 198 10^3/cmm (157-399); Red Blood Count 5.05 10^6/uL (3.85-5.65); Red Cell Distribution Width 12.8 % (12.1-15.1)
[2023-12-04 13:22] LABS: Alanine Aminotransferase 11 U/L (0-41); Albumin Level 3.6 g/dL (3.5-5.2); Alkaline Phosphatase 94 U/L (40-130); Anion Gap 12.9 (5-19); Aspartate Amino Transferase 12 U/L (0-40); Blood Urea Nitrogen 6 mg/dL (6-20); C Reactive Protein 7.5 mg/L (0.0-4.9); Calcium 9.3 mg/dL (8.5-10.5); Carbon Dioxide 26 mmol/L (22-29); Chloride 103 mmol/L (98-107); Globulin 3.3 g/dL (1.3-4.6); Glomerular Filtration Rate 173.9 mL/min (90-130); Glucose 80 mg/dL (65-115); Lipase 106 U/L (13-60); Magnesium 2.2 mg/dL (1.7-2.3); Osmolality Calculated 283 mOsm/kg (285-295); Potassium 3.9 mmol/L (3.5-5.1); Sodium 138 mmol/L (136-145); Total Bilirubin 0.2 mg/dL (0.15-1.2); Total Protein 6.9 g/dL (6.6-8.7)
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
--- NOTE | 2023-12-04 14:14 | PC.PHAR ---
PT HAS [facility] HEALTH NURSE PRICE [phone] SET UP MEDS. I VERIFIED ALL MEDS BUT CONTROLLED SUBSTANCES WHICH PT TAKES CARE OF HIMSELF. 12/04/23
[2023-12-04 15:39] LABS: Add Urine Microscopic? NO; Bilirubin Urine Neg (Negative); Blood Urine Neg (Negative); Glucose Urine UA Norm (Normal); Ketones Urine Negative (Negative); Leukocyte Esterase Urine Negative (Negative); Nitrate Urine Negative (Negative); Protein Urine Neg (Negative); Sulfosalicylic Acid Urine Negative (Negative); Urine Appearance Clear (CLEAR); Urine Color Yellow (Yellow); Urobilinogen Urine Norm (Negative); pH Urine 8 (5-7)
[2023-12-04 15:40] LABS: Charge for UA Resulting for Rev
== END 2023-12-04 16:34 | disposition home or self-care (01) ==
PROVIDERS: Emergency Provider Emergency Medicine; PCP Family Medicine
DX: R10.9 Unspecified abdominal pain (principal); R11.2 Nausea with vomiting, unspecified; Z79.84 Long term (current) use of oral hypoglycemic drugs; Z72.0 Tobacco use
CPT/HCPCS: 36415; 74177; 80053; 81003; 83690; 83735; 85025; 86140; 96361; 96374; 96375; 99285; J2270; J2765; J7030; Q9967

== ENCOUNTER 2024-09-27 10:42 | Emergency (ER) | payer OTHER, MEDICAID, SELFPAY ==
[2024-09-27 11:01] VITALS: BP 124/75; PULSE 94; RESP 18; TEMP 36.9; O2SAT 95
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
--- NOTE | 2024-09-27 11:50 | CT_ITS ---
WS: [id number] CT ABDOMEN PELVIS TECHNIQUE: Contrast-enhanced CT of the abdomen and pelvis with coronal and sagittal reformatted image s. CLINICAL INFORMATION: abd pain COMPARISON: CT 12/04/2023 DLP: 639.[address] scans at [facility] [place] use at least one of these dose optimization techniques: automated e xposure control; mA and/or kV adjustment per patient size (includes targeted exams where dose is matc hed to clinical indication); or iterative reconstruction. FINDINGS: Hepatomegaly. Diffuse fatty infiltration of the liver. Normal portal vein and splenic vein. Normal pa ncreas. Normal spleen. Tiny esophageal hiatal hernia. Food products in the stomach. Adrenal glands ar e normal. Normal renal parenchymal enhancement. No hydronephrosis in either kidney. Small LEFT renal cyst. Normal caliber abdominal aorta. Aortic calcification. Urine distended bladder. Enlarged prostate measuring 4.5 cm. Advanced degenerative arthritis both hip s. Prior postoperative changes laminectomy defects L3-L5. Mild sigmoid constipation. No free fluid in the abdomen or pelvis. Slight bibasilar atelectasis. Chronic spondylolysis L5-S1 CT/CT abdomen pelvis w con* [id number] IMPRESSION: 1. No acute traumatic findings in the abdomen or pelvis.
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
[2024-09-27 11:56] VITALS: BP 139/86; PULSE 85; RESP 17; O2SAT 94
[2024-09-27] MEDS: iohexol 350 mg/mL 500 mL Btl (per mL) IV (12:32)
[2024-09-27 13:18] VITALS: BP 167/99; PULSE 85; O2SAT 93
== END 2024-09-27 13:19 | disposition home or self-care (01) ==
PROVIDERS: Emergency Provider Emergency Medicine; PCP Family Medicine
DX: S20.219A Contusion of unspecified front wall of thorax, initial encounter (principal); Y08.89XA Assault by other specified means, initial encounter; Z79.84 Long term (current) use of oral hypoglycemic drugs; Z79.4 Long term (current) use of insulin; Z72.0 Tobacco use
CPT/HCPCS: 71101; 72100; 74177; 99285

== ENCOUNTER 2025-02-20 17:41 | Emergency (ER) | payer MEDICARE, MEDICAID, SELFPAY ==
[2025-02-20] VITALS (8 sets, daily range): BP systolic 121–162; BP diastolic 85–105; PULSE 74–88; RESP 16–18; TEMP 36.9; O2SAT 93–97; BMI 26.3
--- NOTE | 2025-02-20 17:42 | ECG_ITS ---
[facility] [employer] Test Date: 2025-02-20 Pat Name: Mert Spain Department: Room: Gender: Male Dispatch Clerk: : 1970 Requested By: Louis Madison Order Number: [id number] James MD: Miky Crooks M.D. Measurements Intervals [place] Rate: 85 P: 52 DE: 150 QRS: -21 QRSD: 85 T: 47 QT: 371 QTc: 442 Interpretive Statements SINUS RHYTHM BORDERLINE LEFT AXIS DEVIATION [QRS AXIS < -20] Compared to ECG 11/17/2022 22:03:06 No significant changes Electronically Signed On 02-21-2025 21:31:33 CDT by Miky Crooks M.D. [email or web address]
--- NOTE | 2025-02-20 17:44 | XRR_ITS ---
PROCEDURE INFORMATION: Exam: XR Chest Exam date and time: 02/20/2025 5:52 PM Age: 54 years old Clinical indication: Pain; Chest pressure; Additional info: Cp TECHNIQUE: Imaging protocol: Radiologic exam of the chest. Views: 1 view. COMPARISON: CR XR ribs LT mn 3V w CXR1V [id number] 09/27/2024 11:41 AM FINDINGS: Lungs: There are areas of parenchymal scar in the mid to lower lung zones bilaterally, not significantly changed. No focal consolidation or pulmonary edema is seen. Pleural spaces: No significant pleural effusion. No pneumothorax. Heart/Mediastinum: Within normal limits. Bones/joints: Intact. There is a surgical plate projecting over the lower cervical spine. There are degenerative changes involving the glenohumeral joints bilaterally. Other findings: None. XR/XR chest 1V portable [id number] IMPRESSION: No acute findings.
--- NOTE | 2025-02-20 18:08 | W.ED.CHESTPA ---
HPI - Chest Pain General: Chief Complaint: Chest Pain Stated Complaint: chest pain, MENA Time Seen by Provider: 02/20/25 18:04 Source: patient Mode of arrival: ambulatory Limitations: no limitations History of Present Illness: 54-year-old male states he has been having chest pain since this morning states that he is having some sharp pains almost some pressure pain in the center of his chest states its radiated to his upper chest throughout the day states he is also had a slight nonproductive cough and some mild dyspnea he rates his pain a 4 out of 10 currently denies any history of heart disease denies any nausea or diaphoresis Associated symptoms: Reports dyspnea; Deny abdominal pain, fever(s), nausea or vomiting Related Data Home Medications ?Medication ?Instructions ?Recorded ?Confirmed gabapentin 800 mg tablet 800 mg PO QID 01/25/20 02/19/25 morphine 15 mg tablet,extended 15 mg PO Q12H 01/25/20 02/19/25 release morphine 60 mg tablet,extended 60 mg PO Q12H 01/25/20 02/19/25 release tamsulosin 0.4 mg capsule (Flomax) 0.4 mg PO DAILY 01/25/20 02/19/25 atorvastatin 40 mg tablet 40 mg PO DAILY 12/04/23 02/19/25 baclofen 10 mg tablet 10 - 20 mg PO TID PRN Muscle Spasm 12/04/23 02/19/25 [id number]-yoeimxnfdkast-haqgttwp 1 tab PO Q4H PRN Pain 12/04/23 02/19/25 50 mg-325 mg-40 mg tablet diazepam 5 mg tablet 5 mg PO Q8H PRN Anxiety 12/04/23 02/19/25 diclofenac sodium 1 % topical gel 4 g topical QID 12/04/23 02/19/25 docusate sodium 100 mg capsule 200 mg PO BID 12/04/23 02/19/25 (Colace) famotidine 20 mg tablet 20 mg PO BID 12/04/23 02/19/25 glipizide 10 mg tablet 10 mg PO BID 12/04/23 02/19/25 magnesium oxide 400 mg PO DAILY 12/04/23 02/19/25 metformin 500 mg tablet 1,000 mg PO BID 12/04/23 02/19/25 metoprolol tartrate 25 mg tablet 25 mg PO DAILY 12/04/23 02/19/25 terbinafine HCl 250 mg tablet 250 mg PO DAILY 12/04/23 02/19/25 albuterol sulfate 90 mcg/actuation 2 puff inhalation Q6H 09/27/24 02/19/25 aerosol inhaler amlodipine 10 mg tablet 10 mg PO DAILY 09/27/24 02/19/25 diclofenac sodium 75 mg 75 mg PO BID 09/27/24 02/19/25 tablet,delayed release diphenhydramine HCl 25 mg tablet 25 mg PO TID 09/27/24 02/19/25 fluticasone propionate 50 2 spray intranasal DAILY 09/27/24 02/19/25 mcg/actuation nasal spray,suspension insulin lispro 100 unit/mL See Rx Instructions .Route .COMPLEX 09/27/24 02/19/25 subcutaneous pen lisinopril 5 mg tablet 5 mg PO DAILY 09/27/24 02/19/25 semaglutide 14 mg tablet (Rybelsus) 14 mg PO DAILY 09/27/24 02/19/25 Previous Rx's ?Medication ?Instructions ?Recorded fluoxetine 40 mg capsule (Prozac) 40 mg PO QAM #30 caps 03/13/22 ondansetron HCl 4 mg tablet 4 mg PO TID PRN nausea and 12/04/23 vomiting #14 tabs Allergies Allergy/AdvReac Type Severity Reaction Status Date / Time Penicillins Allergy Unknown Unknown Verified 02/20/25 17:50 Review of Systems Const: Denies: fever(s), chills, body aches or change in appetite ENMT: Denies: throat pain or dental pain Card: Reports: chest pain Resp: Reports: dyspnea and non-productive cough GI: Denies: abdominal pain, nausea, vomiting or diarrhea : Denies: dysuria Musc: Denies: neck pain or back pain Skin/Breast: Denies: rash PFSH ED PFSH: Medical History Psychiatric care Bereavement Sudden loss of mother on 03/18/20 Loss of brother Panic disorder without agoraphobia Chronic post-traumatic stress disorder (PTSD) Major depressive disorder, recurrent severe without psychotic features Family History Denies family history of CAD (coronary artery disease) Social History Smoking and tobacco/nicotine status: current every day tobacco/nicotine user Alcohol intake: never Substance/Drug Use: never Physical Exam Const: COMMON NORMALS: patient oriented x3 HENMT: COMMON NORMALS: normocephalic and atraumatic HEAD & SCALP: normocephalic and atraumatic Eye: COMMON NORMALS: Equal, round and reactive pupils present and EOMs intact bilaterally PUPIL: Yes Equal, round and reactive pupils present Neck/C-Spine: COMMON NORMALS: full ROM and supple Chest: COMMONS NORMALS: normal inspection of the chest and normal palpation of entire chest wall Resp: COMMON NORMALS: normal respiratory effort, No retractions, No use of accessory muscles and clear to auscultation bilaterally AUSCULTATION: clear to auscultation bilaterally Cardio: COMMON NORMALS: regular rate, regular rhythm and No murmurs present (Cardio) RATE: regular rate RHYTHM: regular rhythm GI: COMMON NORMALS: Normal to inspection, nondistended, normoactive bowel sounds present, Soft to palpation, non-tender and no masses PALPATION: Yes Soft to palpation Extremity: COMMON NORMALS: normal to inspection and full ROM Neuro: COMMON NORMALS: patient oriented x3, moves all extremities and no focal motor deficits Psych: COMMON NORMALS: mental status grossly normal, Normal thought process present and cooperative THOUGHT PROCESS: Normal thought process present Skin: COMMON NORMALS: no rashes or lesions noted and no wounds GENERAL SKIN EXAM: no rashes or lesions noted Course Vital Signs: Vital signs: Vital Signs Temperature 98.4 F 02/20/25 17:47 Pulse Rate 78 02/20/25 19:00 Respiratory Rate 18 02/20/25 18:17 Blood Pressure 135/92 02/20/25 19:00 Pulse Oximetry 94 02/20/25 19:00 Oxygen Delivery Me thod Room Air 02/20/25 19:00 MDM - Chest Pain Medical Decision Making Patient presents for chest pains atypical in nature initial repeat troponins are negative he has no signs of aortic dissection or pulmonary embolism he has been well-appearing here his pain is improved he is to follow-up with PCP return if worsening he understands agrees to plan. Medical Records I reviewed the patient's medical records. Lab Data I reviewed the patient's lab results. 02/20/25 18:13 02/20/25 18:13 Radiology Impressions Chest X-Ray 02/20/25 17:44 IMPRESSION: No acute findings. Laboratory Results WBC 9.66 10^3/uL (3.29-11.43) 02/20/25 18:13 RBC 5.26 10^6/uL (3.85-5.65) 02/20/25 18:13 Hgb 16.70 g/dL (11.27-16.99) 02/20/25 18:13 Hct 49.8 % (37-53) 02/20/25 18:13 MCV 94.7 fl (82-101) 02/20/25 18:13 MCH 31.7 pg (27-33) 02/20/25 18:13 MCHC 33.5 g/dL (30-55) 02/20/25 18:13 RDW 12.7 % (12.1-15.1) 02/20/25 18:13 Plt Count 199 10^3/cmm (157-399) 02/20/25 18:13 MPV 10.2 fL (7.4-10.4) 02/20/25 18:13 Neut % (Auto) 63.1 % 02/20/25 18:13 Lymph % (Auto) 26.0 % 02/20/25 18:13 [place] % (Auto) 7.0 % 02/20/25 18:13 Eos % (Auto) 2.7 % 02/20/25 18:13 Baso % (Auto) 0.7 % 02/20/25 18:13 Neut # (Auto) 6.09 10^3/uL (1.8-7.7) 02/20/25 18:13 Lymph # (Auto) 2.5 10^3/uL (0.8-4.8) 02/20/25 18:13 [place] # (Auto) 0.7 10^3/uL (0.2-0.9) 02/20/25 18:13 Eos # (Auto) 0.3 10^3/uL (0.0-0.8) 02/20/25 18:13 Baso # (Auto) 0.1 10^3/uL (0.0-0.1) 02/20/25 18:13 Nucleated RBC % (auto) 0 % 02/20/25 18:13 Nucleated RBCs # 0.0 /100WBC 02/20/25 18:13 Sodium 138 mmol/L (136-145) 02/20/25 18:13 Potassium 4.0 mmol/L (3.5-5.1) 02/20/25 18:13 Chloride 100 mmol/L (98-107) 02/20/25 18:13 Carbon Dioxide 25 mmol/L (22-29) 02/20/25 18:13 Anion Gap 17.0 (5-19) 02/20/25 18:13 BUN 6 mg/dL (6-20) 02/20/25 18:13 Creatinine 0.6 mg/dL (0.7-1.2) L 02/20/25 18:13 GFR Calculation 140.4 mL/min (90-130) H 02/20/25 18:13 Glucose 188 mg/dL (65-115) H 02/20/25 18:13 POC Glucose 170 mg/dL (70-110) H 02/20/25 19:50 Calculated Osmolality 289 mOsm/kg (285-295) 02/20/25 18:13 Calcium 9.5 mg/dL (8.5-10.5) 02/20/25 18:13 Total Bilirubin 0.2 mg/dL (0.15-1.2) 02/20/25 18:13 AST 16 U/L (0-40) 02/20/25 18:13 ALT 21 U/L (0-41) 02/20/25 18:13 Alkaline Phosphatase 97 U/L (40-130) 02/20/25 18:13 Troponin T Baseline 9 ng/L (0-15) 02/20/25 18:13 Troponin T 120 Minute 8.27 ng/L (0-15) 02/20/25 19:51 Delta Troponin T -0.73 ABS# (0-10) L 02/20/25 19:51 Total Protein 6.9 g/dL (6.6-8.7) 02/20/25 18:13 Albumin 4.1 g/dL (3.5-5.2) 02/20/25 18:13 Globulin 2.8 g/dL (1.3-4.6) 02/20/25 18:13 Lipase 41 U/L (13-60) 02/20/25 18:13 All radiology interpretation(s) finalized by discharge EKG Data EKG 1: I personally reviewed and interpreted this EKG as follows: EKG interpretation date: 02/20/25 EKG interpretation time: 17:46 Interpretation: nsr hr [address] elevation qrs 85 qtc 413 EKG 2: I personally reviewed and interpreted this EKG as follows: EKG interpretation date: 02/20/25 EKG interpretation time: 19:31 Interpretation: nsr hr [address] elevation qrs 89 qtc 427 Discharge Plan Discharge Patient Disposition: Home Clinical Impression: Chest pain Condition: Stable Prescriptions: No Action morphine 60 mg tablet extended release 60 mg PO Q12H morphine 15 mg tablet extended release 15 mg PO Q12H gabapentin 800 mg tablet 800 mg PO QID tamsulosin [Flomax] 0.4 mg capsule 0.4 mg PO DAILY fluoxetine [Prozac] 40 mg capsule 40 mg PO QAM Qty: 30 3RF glipizide 10 mg tablet 10 mg PO BID metoprolol tartrate 25 mg tablet 25 mg PO DAILY metformin 500 mg tablet 1,000 mg PO BID hbzwwqsopw-cvnjjosjcloqt-tjte 50-325-40 mg tablet 1 tab PO Q4H PRN (Reason: Pain) terbinafine HCl 250 mg tablet 250 mg PO DAILY famotidine 20 mg tablet 20 mg PO BID baclofen 10 mg tablet 10 - 20 mg PO TID PRN (Reason: Muscle Spasm) docusate sodium [Colace] 100 mg Capsule 200 mg PO BID diazepam 5 mg tablet 5 mg PO Q8H PRN (Reason: Anxiety) diclofenac sodium 1 % gel 4 g TOPICAL QID magnesium oxide 400 mg magnesium Tablet 400 mg PO DAILY atorvastatin 40 mg tablet 40 mg PO DAILY ondansetron HCl 4 mg tablet 4 mg PO TID PRN (Reason: nausea and vomiting) Qty: 14 0RF amlodipine 10 mg Tablet 10 mg PO DAILY diclofenac sodium 75 mg tablet,delayed release (DR/EC) 75 mg PO BID lisinopril 5 mg Tablet 5 mg PO DAILY albuterol sulfate 90 mcg/actuation HFA aerosol inhaler 2 puff INHALATION Q6H fluticasone propionate 50 mcg/actuation spray,suspension 2 spray INTRANASAL DAILY insulin lispro 100 unit/mL Insulin Pen See Rx Instructions .ROUTE .COMPLEX Rx Instructions: inject 4 units sq 200-250 6 units 251-300 8 units 301-350 Rybelsus 14 mg tablet 14 mg PO DAILY diphenhydramine HCl [Diphenadryl] 25 mg Tablet 25 mg PO TID Discharge Orders: Discharge ED (Routine); Ordered 02/20/25 Ordered By: Luis Vee Referrals: Girish Yo DO [Primary Care Provider] - 4-7 days Discharge Diet: Advance as tolerated Discharge Activity: Resume usual activity Patient Instructions: Chest Pain (ED) Print Language: Occitan Coding Level of Care Code ED [employer]ical [employer] for [facility] Esther Waldrop
[2025-02-20] MEDS: aspirin 81 mg Chew Tablet 324 MG PO (18:13)
[2025-02-20] MEDS: ondansetron 2 mg/ML SDV 2 mL 4 MG IVP (18:14)
[2025-02-20] MEDS: morphine 4 mg/mL SDV 1 mL IVP (18:17)
[2025-02-20 18:33] LABS: Basophils # 0.1 10^3/uL (0.0-0.1); Basophils % 0.7 %; Eosinophils # 0.3 10^3/uL (0.0-0.8); Eosinophils % 2.7 %; Hematocrit 49.8 % (37-53); Lymphocytes # 2.5 10^3/uL (0.8-4.8); Mean Corpuscular HGB Conc 33.5 g/dL (30-55); Mean Corpuscular Hemoglobin 31.7 pg (27-33); Mean Corpuscular Volume 94.7 fl (82-101); Mean Platelet Volume 10.2 fL (7.4-10.4); Monocytes # 0.7 10^3/uL (0.2-0.9); Neutrophils # 6.09 10^3/uL (1.8-7.7); Neutrophils % 63.1 %; Nucleated Red Blood Cells % 0 %; Platelet Count 199 10^3/cmm (157-399); Red Blood Count 5.26 10^6/uL (3.85-5.65); Red Cell Distribution Width 12.7 % (12.1-15.1); White Blood Count 9.66 10^3/uL (3.29-11.43)
[2025-02-20 18:56] LABS: Troponin(5th) Baseline 9 ng/L (0-15)
[2025-02-20 18:58] LABS: Alanine Aminotransferase 21 U/L (0-41); Albumin Level 4.1 g/dL (3.5-5.2); Alkaline Phosphatase 97 U/L (40-130); Aspartate Amino Transferase 16 U/L (0-40); Blood Urea Nitrogen 6 mg/dL (6-20); Calcium 9.5 mg/dL (8.5-10.5); Carbon Dioxide 25 mmol/L (22-29); Chloride 100 mmol/L (98-107); Creatinine Clr Calc Pharmacy 144.1862; Globulin 2.8 g/dL (1.3-4.6); Glomerular Filtration Rate 140.4 mL/min (90-130); Glucose 188 mg/dL (65-115); Lipase 41 U/L (13-60); Osmolality Calculated 289 mOsm/kg (285-295); Sodium 138 mmol/L (136-145); Total Bilirubin 0.2 mg/dL (0.15-1.2); Total Protein 6.9 g/dL (6.6-8.7)
--- NOTE | 2025-02-20 19:44 | ECG_ITS ---
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 Measurements Intervals Ider Rate: 76 P: 130 UT: 158 QRS: -17 QRSD: 89 T: 51 QT: 397 QTc: 448 Interpretive Statements SINUS RHYTHM POSSIBLE LEFT ATRIAL ENLARGEMENT [-0.1mV P-WAVE IN V1/V2] SEPTAL MYOCARDIAL INFARCTION , PROBABLY OLD [40+ ms Q WAVE IN V1/V2] Compared to ECG 02/20/2025 17:46:03 Myocardial infarct finding now present Electronically Signed On 02-21-2025 21:46:41 CDT by Miky Crooks M.D. [email or web address]
[2025-02-20 19:53] LABS: Glucose Point of Care 170 mg/dL (70-110)
[2025-02-20 20:19] LABS: Troponin 5 2HR 8.27 ng/L (0-15)
[2025-02-20 20:25] LABS: Troponin 5 2HR Delta -0.73 ABS# (0-10)
== END 2025-02-20 20:44 | disposition home or self-care (01) ==
PROVIDERS: Emergency Provider Emergency Medicine; PCP Family Medicine
DX: R07.9 Chest pain, unspecified (principal); Z79.4 Long term (current) use of insulin; Z79.84 Long term (current) use of oral hypoglycemic drugs; Z72.0 Tobacco use
CPT/HCPCS: 36416; 71045; 80053; 82962; 83690; 84484; 85025; 93005; 96374; 96375; 99285; J2270; J2405; J9999

== ENCOUNTER 2025-10-02 11:52 | Emergency (ER) | payer MEDICARE, MEDICAID, SELFPAY ==
--- OUTSIDE RECORDS SUMMARY | 2025-10-02 08:20 | XMS_ITS | Encounter Summary ---
Author Organization [facility] Address [address] [place] [address] Care Team Providers Care Crane Chaser Name Role Phone Girish Yo DO Primary Care Provider [phone] Reason for Visit * Reason Comments Diabetes Belly Button Pain Encounter Details Date Type Department Care Team (Latest Contact Info) Description 10/02/2025 8:20 AM VESSEL MANAGER Office Visit [facility] [address] [phone] Elena López FNP [address] [address] 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) (Primary Dx); Benign hypertension; Periumbilical abdominal pain; Other long-term (current) drug therapy Social History Tobacco Use Types Packs/Day Years Used Date Smoking Tobacco: Every Day Cigarettes 0.5 Last attempted to quit: 02/10/2022 Passive Smoke Exposure: Never Smokeless Tobacco: Never Alcohol Use Standard Drinks/Week Comments No 0 (1 standard drink = 0.6 oz pur e alcohol) Feeling Safe Answer Date Recorded Are you in a relationship wi th someone who hurts you emotionally and/or physically? No 12/25/2024 Food Insecurity Answer Date Recorded Patient needs follow up regardin 03/01/2025 Transportation Needs Answer Date Record ed Patient needs follow up regardin 03/01/2025 Housing Stability Answer Date Recorded Social/Environmental Concerns No concerns Utility Needs Answer Date Recorded Patient needs follow up regardin 03/01/2025 Sex and Gender Information Value Date Recorded Sex Assigned at Not on file Legal Sex Male 12:02 AM VESSEL MANAGER Gender Identity Not on file Sexual Orientation Not on file documented as of this encounter Last Filed Vital Signs Vital Sign Reading Time Taken Comments Blood Pressure 120/76 10/02/2025 8:12 AM VESSEL MANAGER Pulse 90 10/02/2025 8:12 AM VESSEL MANAGER Temperature 36.4 C (97.6 F) 10/02/2025 8:12 AM VESSEL MANAGER Respiratory Rate 18 10/02/2025 8:12 AM VESSEL MANAGER Oxygen Saturation 96% 10/02/2025 8:12 AM VESSEL MANAGER Inhaled Oxygen Concentration - - Weight 76.9 kg (169 lb 9.6 oz) 10/02/2025 8:12 A M VESSEL MANAGER Height 172.7 cm (5' 8 ) 10/02/2025 8:12 AM VESSEL MANAGER Body Mass Index 25.79 10/02/2025 8:12 AM VESSEL MANAGER documented in this encounter Progress Notes * Elena López FNP - 10/02/2025 8:24 AM CST HISTORY OF PRESENT ILLNESS: Mert Spain is a 55 y.o. year-old male who presents for Chief Complaint Patient presents with Diabetes Belly Button Pain HPI Pt presents for 3 months f/u of HTN and uncontrolled T2DM. He takes Ozempic 1mg every week; Humalogper SS; glipizide 10mg BID; and max metformin, as well as lisinopril 5mg. Last A1C (June) was up from prior check to 9.3; goal < 7. Pt also reports progressively worsening abdominal pain x 2 weeks. Max pain at the umbilicus. He is vomiting everything he eats. Pain is made worse with abdominal pressure and bearing down for BM. SH includes cholecystectomy in December. REVIEW OF SYSTEMS: Review of Systems Constitutional: Positive for chills (mild, intermittent). Negative for fever. Respiratory: Negative for shortness of breath. Cardiovascular: Negative for chest pain. Gastrointestinal: Positive for abdominal pain, nausea and vomiting. Negative for blood in stool, constipation, diarrhea and heartburn. Genitourinary: Negative. Neurological: Negative for dizziness. Current Outpatient Medications on File Prior to Visit Medication Sig Dispense Refill baclofen (LIORESAL) 10 mg tablet Take 1 TO 2 Tablets (10-20 mg) by mouth 3 times daily as needed (for muscle spasms). 70 Tablet 5 morphine (MS CONTIN) 30 mg Controlled Release tablet Take 1 Tablet (30 mg) by mouth every 12 hours.Take with 60 mg. Will return to 15 mg when this is available. Max Daily Amount: 60 mg 56 Tablet 0 morphine (MS CONTIN) 60 mg Controlled Release tablet Take 1 Tablet (60 mg) by mouth every 12 hours.28 DAYS Max Daily Amount: 120 mg 56 Tablet 0 metFORMIN (GLUCOPHAGE) 500 mg tablet TAKE 2 TABLETS BY MOUTH TWICE A DAY DAILY WITH MEALS 400 Tablet 3 docusate sodium (COLACE) 100 mg capsule Take 2 Capsules (200 mg) by mouth 2 times daily. 360 Capsule 1 FLUoxetine (PROzac) 40 mg capsule Take 1 Capsule (40 mg) by mouth daily in the morning. 90 Capsule 1 magnesium OXIDE (MAG-OX) 400 mg (241.3 mg magnesium) tablet Take 1 Tablet (400 mg) by mouth daily. 90 Tablet 1 gabapentin (NEURONTIN) 800 mg tablet Take 1 Tablet (800 mg) by mouth 4 times daily 120 Tablet 1 terbinafine HCL (LamISIL) 250 mg tablet Take 1 Tablet (250 mg) by mouth daily. 30 Tablet 1 albuterol sulfate HFA 90 mcg/actuation aerosol inhaler Take 2 Puffs by inhalation every 6 hours as needed for Shortness of Breath or Wheezing. 8.5 Gram PRN famotidine (PEPCID) 20 mg tablet Take 2 Tablets (40 mg) by mouth 2 times daily. 120 Tablet 3 omeprazole (PriLOSEC) 20 mg Capsule, Delayed Release(E.C.) Take 1 Capsule (20 mg) by mouth daily inthe morning. 100 Capsule 3 celecoxib (CeleBREX) 200 mg capsule Take 1 Capsule (200 mg) by mouth 2 times daily with meals. 60 Capsule 3 diclofenac sodium (VOLTAREN) 1 % gel Apply 2 Grams to affected area 4 times daily as needed for Pain. 100 Gram 3 naloxegoL (Movantik) 25 mg Tablet Take 1 Tablet (25 mg) by mouth daily before breakfast. 30 Tablet 5 semaglutide (Ozempic) 1 mg/dose (4 mg/3 mL) Pen Injector Inject 1 mg by subcutaneous injection every 7 days. 3 mL 0 QUEtiapine (SEROquel) 100 mg tablet Take 100 mg by mouth daily at bedtime. glipiZIDE (GLUCOTROL) 10 mg tablet take 1 tablet by mouth twice a day with meals 180 Tablet 3 atorvastatin (LIPITOR) 40 mg tablet Take 1 Tablet (40 mg) by mouth daily. 100 Tablet 3 metoprolol tartrate (LOPRESSOR) 25 mg tablet Take 1 Tablet (25 mg) by mouth daily. 100 Tablet 3 diazePAM (VALIUM) 5 mg tablet Take 1 Tablet (5 mg) by mouth every 8 hours as needed for Anxiety. EACH FILL MUST LAST 30 DAYS 90 Tablet 5 prazosin (MINIPRESS) 2 mg capsule take 2 capsules by mouth at bedtime finasteride (PROSCAR) 5 mg tablet Take 1 Tablet (5 mg) by mouth daily at bedtime. 90 Tablet 4 tamsulosin (FLOMAX) 0.4 mg capsule Take 2 Capsules (0.8 mg) by mouth daily. 180 Capsule 3 power wheelchair Face to Face completed within 6 months: yes Length of Need: 99 months (J43.1) Panlobular emphysema (primary encounter diagnosis) (R26.2) Ambulatory dysfunction (M25.569) Knee pain, unspecified chronicity, unspecified laterality (M25.559) Hip pain, unspecified laterality (M47.817) Lumbosacral spondylosis without myelopathy (M47.12) Myelopathy, spondylogenic, cervical (R29.898) Weakness of both lower extremities (M21.372) Acquired left foot drop (M96.1) Postlaminectomy syndrome, cervical region (M48.061) Spinal stenosis of lumbar region, unspecified whether neurogenic claudication present (R26.81) Gait instability 1 Each 0 insulin lispro (HumaLOG KwikPen Insulin) 100 unit/mL pen syringe INJECT 4 UNITS IF BLOOD SUGAR IS 200-250, IMJECT 6 UNITS IF 251-300,INJECT 8 UNITS IF 301-350, Max 50 units daily 15 mL 5 ondansetron (ZOFRAN ODT) 4 mg Tablet, Rapid Dissolve Take 1 Tablet (4 mg) by mouth every 6 hours asneeded for Nausea/Emesis. Dissolve tablet on top of tongue, then swallow with saliva. 10 Tablet 0 blood sugar diagnostic (Accu-Chek Guide test strips) Strip To check blood sugar daily, alternating between fasting and 1 hour post meal. 100 Strip 5 pen needle, diabetic (Comfort EZ Pen [place]) 33 gauge x 5/32 Needle USE WITH HUMALOG-KWIKPEN 100 Each 4 cholecalciferol, vitamin D3, 5,000 unit Take 1 Tablet (5,000 Units) by mouth daily. 90 Tablet 3 fluticasone propionate (FLONASE) 50 mcg/spray Hulbert, Suspension nasal inhaler Administer 2 Sprays in each nostril daily. 16 Gram 5 uzndkwauut-kuhlcgykiwhpy-caiivfvc (FIORICET) 50-325-40 mg tablet Take 1 Tablet by mouth every 4 hours as needed for Pain. 100 Tablet 3 lancets (Accu-Chek Softclix Lancets) For daily glucose monitoring. 100 Each 5 lisinopriL (PRINIVIL) 5 mg tablet Take 1 Tablet (5 mg) by mouth daily. 90 Tablet 1 diphenhydrAMINE 25 mg tablet Take 25-50 mg by mouth nightly as needed for Insomnia. OTHER AFO of left foot. New device, Fit and place AFO. JPO orthotics. 1 Each 0 amLODIPine (NORVASC) 10 mg tablet Take 1 Tablet (10 mg) by mouth daily. 90 Tablet 3 meclizine (ANTIVERT) 25 mg tablet TAKE 1 TABLET BY MOUTH 4 TIMES A DAY NEEDED 30 Tablet 3 naloxone (NARCAN) 4 mg/spray Hulbert, Non-Aerosol EMERGENCY USE ONLY: Administer 1 spray (4 mg) in one nostril one time. May repeat in alternating nostrils every 2-3 min until responsive or EMS arrives. 2 Each 3 multivit-minerals/folic acid (MULTIVITAMIN GUMMIES ORAL) Take 1 Dose by mouth daily. OTHER Sock aid device 1 Device 1 loratadine (ALLERGY RELIEF) 10 mg tablet Take 1 Tablet (10 mg) by mouth 1 time daily as needed for Allergies.-GEN.CLARITIN 100 Tablet 5 [DISCONTINUED] Ozempic 0.25 mg or 0.5 mg (2 mg/3 mL) Pen Injector Inject 0.5 mg by subcutaneous injection every 7 days. 3 mL 0 [DISCONTINUED] semaglutide (Ozempic) 2 mg/dose (8 mg/3 mL) Pen Injector Inject 2 mg by subcutaneousinjection every 7 days. (Patient not taking: Reported on 10/02/2025) 9 mL 3 QUEtiapine (SEROquel) 50 mg tablet take 1 tablet by mouth 2 times a day as needed for anxiety celecoxib (CeleBREX) 200 mg capsule Take 1 Capsule (200 mg) by mouth daily with breakfast. (Patientnot taking: Reported on 10/02/2025) 30 Capsule 2 Current Facility-Administered Medications on File Prior to Visit Medication Dose Route Frequency Provider Last Rate Last Admin lidocaine 2% jelly 5 mL 5 mL Urethral ONE time only Shiv Robles NP PAST MEDICAL/SURGICAL/SOCIAL HISTORY: Patient Active Problem List Diagnosis Date Noted Osteoarthritis of right knee 07/19/2025 Positive fecal immunochemical test 02/15/2024 Overview Note: 02/14/24: postive FIT test. Dyslipidemia 02/24/2023 Muscle spasm 02/24/2023 History of tobacco use 02/24/2023 Onychomycosis 02/09/2023 Chronic pain syndrome 02/04/2023 Mixed headache 05/07/2022 Acquired left foot drop 04/14/2022 Pulmonary emphysema ([facility]) Preoperative general physical examination 01/21/2022 Leg numbness half-way current use of opiate analgesic 08/31/2020 GERD (gastroesophageal reflux disease) 03/19/2020 Overview Note: ADDED PER PVQ RESPONSE DOS 5.5.2020 Benign hypertension 03/19/2020 Overview Note: ADDED PER PVQ RESPONSE DOS 5..2019 Anxiety associated with depression 03/12/2020 Gait instability 12/21/2018 Ambulates with cane 12/21/2018 Recurrent major depressive disorder, in partial remission 07/12/2018 DM type 2 with diabetic mixed hyperlipidemia ([facility]) 05/02/2018 Type 2 diabetes mellitus with hyperglycemia, without long-term current use of insulin ([facility]) 03/21/2018 Chronic bilateral low back pain with bilateral sciatica 04/25/2017 Ambulatory dysfunction 04/25/2017 Type 2 diabetes mellitus with diabetic autonomic neuropathy, without long-term current use of insulin ([facility]) 04/25/2017 Weakness of both lower extremities 01/05/2017 Lumbar stenosis 01/04/2017 Lumbar radiculopathy 07/04/2012 Lumbosacral spondylosis without myelopathy 07/04/2012 Overview Note: 01/28/2024: L3-L5 laminectomies. Minimal grade 1 retrolisthesis of L2 on L3 and L3-L4. Lumbar spine degenerative changes with multilevel mild disc space narrowing. Myelopathy, spondylogenic, cervical 07/04/2012 PTSD (post-traumatic stress disorder) 07/04/2012 Postlaminectomy syndrome, cervical region 07/04/2012 Personal history of spine surgery 04/05/2012 Hip pain 03/17/2010 Frequent falls 03/17/2010 Knee pain 03/17/2010 Ulnar neuropathy 08/12/2009 Past Medical History: Diagnosis Date Anxiety Arthritis Back pain hx of back & neck surgery Calculus of kidney Chronic pain syndrome Depression Diabetes mellitus ([facility]) Diverticulosis of colon Emphysema of lung ([facility]) Fibromyalgia GERD (gastroesophageal reflux disease) HTN (hypertension) Hyperlipidemia Injury of back Injury of face and neck Lumbar radiculopathy Neuropathy Personal history of adenomatous and serrated colon polyps Post-operative nausea and vomiting severe N/V PTSD (post-traumatic stress disorder) Temporomandibular joint disorders, unspecified Testicular cancer ([facility]) 2013 Chemo & Radiation & surgery Unintentional poisoning by opioid ([facility]) 05/21/2022 Past Surgical History: Procedure Laterality Date HX APPENDECTOMY 08/2009 HX BACK SURGERY 03/06/2013 HX BACK SURGERY N/A 01/05/2017 LUMBAR LAMINECTOMY DISCECTOMY performed by Hernesto Black MD at [facility] OR CERVICAL SPINE SURGERY 03/18/2012 decompression HX CHOLECYSTECTOMY HX COLONOSCOPY N/A 08/07/2024 COLONOSCOPY WITH POLYPECTOMY performed by Yonas Pearce MD at [facility] OR KNEE SURGERY 06/2007 right knee HX LUMBAR SPINE SURGERY 04/2000 L4-L5 HX ORCHIECTOMY Left 2016 HX SURGICAL OTHER N/A 01/05/2017 FLUOROSCOPY performed by Hernesto Black MD at [facility] OR SURGICAL OTHER 1989 hematoma removed right elbow FL ARTHRD ANT INTERBODY DECOMPRESS CERVICAL BELW C2 N/A 02/04/2022 CERVICAL DISCECTOMY FUSION ANTERIOR MULTILEVEL performed by Hernesto Black MD at [facility] OR FL COLONOSCOPY FLX DX W/COLLJ SPEC WHEN PFRMD N/A 04/10/2024 COLONOSCOPY performed by Yonas Pearce MD at [facility] OR FL CYSTOURETHROSCOPY N/A 10/07/2017 CYSTOSCOPY FLEXIBLE performed by Mile Flower MD at [facility] OR [place] EPIDIDYMECTOMY UNILATERAL Left 10/07/2017 EPIDIDYMECTOMY performed by Mile Flower MD at [facility] OR FL I&D DEEP ABSC/HMTMA SOFT TISSUE NECK/THORAX Right 02/07/2022 NECK INCISION AND DRAINAGE performed by Bertha Whitney MD at [facility] OR [place] VANEGAS FACETECTOMY & FORAMOTOMY 1 VRT SGM LUMBAR N/A 03/11/2023 LUMBAR DECOMPRESSION LAMINECTOMY performed by Hernesto Black MD at [facility] OR [place] VANEGAS W/O FACETEC FORAMOT/DSC 1/2 VRT SGM CRV 03/18/2012 CERVICAL CORD POSTERIOR DECOMPRESSION performed by Eladio Alvarez MD at [facility] OR [place] LAPAROSCOPY SURG CHOLECYSTECTOMY N/A 12/27/2024 CHOLECYSTECTOMY LAPAROSCOPIC performed by Arcenio Colbert DO at [facility] OR [place] LAPAROSCOPY SURGICAL JEJUNOSTOMY N/A 02/07/2022 NASOGASTRIC FEEDING TUBE PLACEMENT performed by Bertha Whitney MD at [facility] OR [place] NEUROPLASTY &/TRANSPOS MEDIAN NRV CARPAL TUNNE 12/10/2009 Right - CARPAL TUNNEL RELEASE performed by ACOSTA LUNA at [facility] [place] NEUROPLASTY &/TRANSPOSITION ULNAR NERVE ELBOW 12/10/2009 Right - ULNAR NERVE TRANSPOSITION performed by ACOSTA LUNA at [facility] Social History Socioeconomic History Marital status: Single Tobacco Use Smoking status: Every Day Current packs/day: 0.00 Average packs/day: 0.5 packs/day Types: Cigarettes Last attempt to quit: 02/10/2022 Years since quittin.6 Passive exposure: Never Smokeless tobacco: Never Vaping Use Vaping status: Never Used Substance and Sexual Activity Alcohol use: No Drug use: No Sexual activity: Not Currently Partners: Female Health-Related Social Needs Transportation Needs: No Transportation Needs (03/01/2025) Transportation Needs Patient needs follow up regarding:: 1 Domestic Concerns: Not At Risk (12/25/2024) Feeling Safe Patient has indicated abuse: : No Housing Stability: Low Risk (12/25/2024) Housing Stability Patient needs follow up regarding:: No concerns PHYSICAL EXAM: BP 120/76 Pulse 90 Temp 97.6 ??F (36.4 ??C) (Temporal) Resp 18 Ht 5' 8 (1.727 m) Wt 76.9kg (169 lb 9.6 oz) SpO2 96% BMI 25.79 kg/m?? Physical Exam Constitutional: General: He is awake. He is not in acute distress. Appearance: He is well-groomed. He is not toxic-appearing or diaphoretic. HENT: Head: Atraumatic. Mouth/Throat: Lips: [place]. Mouth: Mucous membranes are moist. Eyes: General: No scleral icterus. Cardiovascular: Rate and Rhythm: Normal rate and regular rhythm. Heart sounds: No murmur heard. Pulmonary: Effort: Pulmonary effort is normal. Breath sounds: Normal breath sounds. Abdominal: General: Abdomen is protuberant. Bowel sounds are normal. Palpations: Abdomen is soft. Tenderness: There is abdominal tenderness (diffuse but max a umilicus with probable umbilical hernia noted). There is guarding and rebound. There is no right CVA tenderness or left CVA tenderness. Skin: General: Skin is warm and dry. Coloration: Skin is not jaundiced or pale. Findings: No bruising, ecchymosis or rash. Neurological: Mental Status: He is alert. Psychiatric: Mood and Affect: Mood normal. Speech: Speech normal. Behavior: Behavior normal. Behavior is cooperative. Thought Content: Thought content normal. PROCEDURES: Procedures LABS: No results found for this visit on 10/02/25 (from the past week). ASSESSMENT/PLAN: Problem List Items Addressed This Visit 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) - Primary Relevant Orders HEMOGLOBIN A1C VITAMIN B12 LEVEL Benign hypertension Other Visit Diagnoses Periumbilical abdominal pain Other terminal carman (current) drug therapy 1. 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) (Primary) Chronic, uncontrolled Will f/u by phone with lab results and recommendations, including any medication regimen changes Plan 3 month f/u visit - HEMOGLOBIN A1C; Future - VITAMIN B12 LEVEL; Future 2. Benign hypertension Chronic, controlled Continue current metoprolol and amlodipine F/u per above 3. Periumbilical abdominal pain Acute, progressive worsening w/ rebound tenderness Pt in need of stat evaluation today including stat blood work and CT Pt advised to proceed to ED for this work-up. He is agreeable to this plan. His will take him by private vehicle. He was discharged from clinic in the same stable condition. 4. Other terminal carman (current) drug therapy JOHNNY Galvan EL MANAGER documented in this encounter Plan of Treatment Upcoming Encounters Date Type Department Care Team (Late st Contact Info) Description 11/06/2025 9:20 AM VESSEL MANAGER Office Visit [facility] [address] [place] [phone] Desiree Wetzel NP [address] [place] [phone] Pending Results Name Type Priority Associated Diagnoses Date /Time HEMOGLOBIN A1C Lab Routine 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) 10/02/2025 9:01 AM VESSEL MANAGER VITAMIN B12 LEVEL Lab Routine 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) 10/02/2025 9:01 AM VESSEL MANAGER Scheduled Orders Name Type Priority Associated Diagnoses Orde r Schedule HEMOGLOBIN A1C Lab Routine 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) Expected: 10/02/2025, Expires: 10/02/2026 VITAMIN B12 LEVEL Lab Routine 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) Expected: 10/02/2025, Expires: 10/02/2026 documented as of this encounter Visit Diagnoses Diagnosis 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)- Primary Type II or unspecified type diabetes mellitus with other specified manifestations, not stated as uncontrolled Benign hypertension Essential hypertension, benign Periumbilical abdominal pain Abdominal pain, periumbilic Other terminal carman (current) drug therapy documented in this encounter Additional Health Concerns Assessment Noted Time PHQ-9 Depression Total Score: 3 06/22/20 25 10:00 AM CDT documented as of this encounter Care Teams Crane Chaser Relationship Specialty Start Date End Date Girish Yo DO [address] [place] [address] PCP - General Family Practice 06/05/22 documented as of this encounter
[2025-10-02 12:00] VITALS: BP 143/82; PULSE 101; RESP 18; TEMP 36.7; O2SAT 96; BMI 25.7
[2025-10-02 12:20] LABS: Hematocrit 46.6 % (37-53); Hemoglobin 15.40 g/dL (11.27-16.99); Mean Corpuscular HGB Conc 33.0 g/dL (30-55); Mean Corpuscular Hemoglobin 31.4 pg (27-33); Mean Corpuscular Volume 94.9 fl (82-101); Nucleated Red Blood Cells % 0 %; Platelet Count 205 10^3/cmm (157-399); Red Blood Count 4.91 10^6/uL (3.85-5.65); White Blood Count 11.08 10^3/uL (3.29-11.43)
[2025-10-02 12:36] LABS: Alanine Aminotransferase 28 U/L (0-41); Albumin Level 3.8 g/dL (3.5-5.2); Alkaline Phosphatase 84 U/L (40-130); Anion Gap 14.2 (5-19); Aspartate Amino Transferase 23 U/L (0-40); Blood Urea Nitrogen 10 mg/dL (6-20); Calcium 9.0 mg/dL (8.5-10.5); Carbon Dioxide 26 mmol/L (22-29); Chloride 101 mmol/L (98-107); Globulin 2.6 g/dL (1.3-4.6); Glucose 163 mg/dL (65-115); Lipase 63 U/L (13-60); Osmolality Calculated 287 mOsm/kg (285-295); Potassium 4.2 mmol/L (3.5-5.1); Sodium 137 mmol/L (136-145); Total Protein 6.4 g/dL (6.6-8.7)
--- OUTSIDE RECORDS SUMMARY | 2025-10-02 12:47 | XMS_ITS | Encounter Summary ---
Author Organization [facility] Address [address] [place] [address] Care Team Providers Care Market Research Interviewer Name Role Phone Shiv Yo MD Primary Care Provider [phone] Encounter Details Date Type Department Care Team (Late st Contact Info) Description 06/15/2007 Outpatient Historical [facility] [address] [place] [phone] David Longoria MD [address] [place] [phone] Pain in Joint, Lower Leg (Primary Dx) Social History Tobacco Use Types Packs/Day Years Used Date Smoking Tobacco: Never Assessed Sex and Gender Information Value Date Recorded Sex Assigned at Not on file Legal Sex Male 4:37 AM BOTTLING EQUIPMENT SALES REPRESENTATIVE Gender Identity Not on file Sexual Orientation Not on file documented as of this encounter Plan of Treatment Not on file documented as of this encounter Visit Diagnoses Diagnosis Pain in joint, lower leg- Primary documented in this encounter Care Teams Market Research Interviewer Relationship Specialty Start Date End Date Shiv Yo MD [address] [place] [address] PCP - General Family Practice 06/28/18 documented as of this encounter
--- OUTSIDE RECORDS SUMMARY | 2025-10-02 12:47 | XMS_ITS | Encounter Summary ---
Author Organization [facility] Address [address] [place] [address] Care Team Providers Care Helper Shear Operator Name Role Phone Shiv Yo MD Primary Care Provider [phone] Encounter Details Date Type Department Care Team (Latest Contact Info) Description 09/12/2007 Outpatient Historical [facility] [address] [place] [phone] David Longoria MD [address] [place] [phone] Chondromalacia Patellae (Primary Dx); Chondromalacia; Loose Body in Knee Social History Tobacco Use Types Packs/Day Years Used Date Smoking Tobacco: Never Assessed Sex and Gender Information Value Date Recorded Sex Assigned at Not on file Legal Sex Male 4:37 AM ENAMEL SPRAYER Gender Identity Not on file Sexual Orientation Not on file documented as of this encounter Plan of Treatment Not on file documented as of this encounter Visit Diagnoses Diagnosis Chondromalacia patellae- Primary Chondromalacia of patella Chondromalacia Loose body in knee documented in this encounter Care Teams Helper Shear Operator Relationship Specialty Start Date End Date Shiv Yo MD [address] [place] [address] PCP - General Family Practice 06/28/18 documented as of this encounter
--- OUTSIDE RECORDS SUMMARY | 2025-10-02 12:47 | XMS_ITS | Encounter Summary ---
Author Organization [facility] Address [address] [place] [address] Care Team Providers Care Strategy Planning Consultant Name Role Phone Shiv Yo MD Primary Care Provider [phone] Encounter Details Date Type Department Care Team (Latest Contact Info) Description 08/15/2007 Outpatient Historical [facility] [address] [place] [phone] David Longoria MD [address] [place] [phone] Chondromalacia Patellae (Primary Dx); Chondromalacia; Loose Body in Knee Social History Tobacco Use Types Packs/Day Years Used Date Smoking Tobacco: Never Assessed Sex and Gender Information Value Date Recorded Sex Assigned at Not on file Legal Sex Male 4:37 AM POSTAL CLERK Gender Identity Not on file Sexual Orientation Not on file documented as of this encounter Plan of Treatment Not on file documented as of this encounter Visit Diagnoses Diagnosis Chondromalacia patellae- Primary Chondromalacia of patella Chondromalacia Loose body in knee documented in this encounter Care Teams Strategy Planning Consultant Relationship Specialty Start Date End Date Shiv Yo MD [address] [place] [phone] PCP - General Family Practice 06/28/18 documented as of this encounter
--- OUTSIDE RECORDS SUMMARY | 2025-10-02 12:47 | XMS_ITS | Clinical Summary ---
Author Organization [facility] [place] Address [address] [place] [address] Care Team Providers Care Parts Department Manager Name Role Phone Shiv Yo MD Primary Care Provider [phone] Allergies Active Allergy Reactions Criticality Noted Date Comments Penicillins Shortness of Breath/Wheezing,Swelling High 08/05/2009 Unclassified Drug Swelling Low 05/13/2017 Blue berries Medications Wheel Chair DeviceIndications: Myelopathy, spondylogenic, cervical,Displacem ent of lumbar intervertebral disc without myelopathy,Lumbosa cral spondylosis without myelopathy,Low back pain,Lumbar radicular pain,Personal history of spine surgery Cervical myelopathy, Neuropathy, Lumbar radiculopathy L4-5 and S1 with chronic leg weakness and falls. 1 Device 0 10/09/20 13 Active mometasone (ELOCON) 0.1 % Cream Apply to affected area daily. 45 Gram 0 07/29/20 16 Active SENNOSIDES (SENNA LAX ORAL) Take by mouth 2 every hs prn . Active Food Supplement, Lactose-Free (ENSURE) Liquid Take 237 mL by mouth 3 times daily. 92944 mL 3 04/30/20 17 Active tadalafil (CIALIS) 20 mg tablet Take 1 Tablet (20 mg) by mouth 1 time daily as needed for Erectile Dysfunction. 6 Tablet 3 06/08/20 17 Active cetirizine (ZyrTEC) 10 mg tablet 1 TABLET DAILY 30 Tablet 6 11/25/19 18 Active promethazine (PHENERGAN) 25 mg tablet Take 1 Tablet (25 mg) by mouth every 6 hours as needed for Nausea/Emesis. 40 Tablet 1 12/07/19 18 Active albuterol HFA 90 mcg inhaler Take 2 Puffs by inhalation every 4 hours as needed for Shortness of Breath or Wheezing. 8 Gram 1 12/07/19 18 Active cyproheptadine (PERIACTIN) 4 mg tablet Take 1 Tablet (4 mg) by mouth daily at bedtime. 30 Tablet 5 11/23/19 19 Active QUEtiapine (SEROquel) 400 mg tablet Take 1 Tablet (400 mg) by mouth late in the day Takes at 9 PM. 30 Tablet 5 11/23/19 20 Active magnesium oxide (MAG-OX) 400 mg (241.3 mg magnesium) tabletIndications: PTSD (post-traumatic stress disorder),Episode of recurrent major depressive disorder, unspecified depression episode severity,S/P cervical spinal fusion,S/P lumbar fusion Take 1 Tablet (400 mg) by mouth daily. 90 Tablet 3 04/24/20 20 Active famotidine (PEPCID) 20 mg tablet Take 2 Tablets (40 mg) by mouth 2 times daily. 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 May repeat in alternating nostrils every 2-3 min until responsive or EMS arrives. 2 Each 3 08/16/20 20 Active prazosin (MINIPRESS) 2 mg capsuleIndications :Benign hypertension Take 4 Capsules (8 mg) by mouth daily at bedtime. 90 Capsule 6 08/16/20 20 Active ALLERGY RELIEF 10 mg tablet Take 1 Tablet (10 mg) by mouth 1 time daily as needed for Allergies.-GEN.CL ARITIN 100 Tablet 5 10/01/20 20 Active DOK 100 mg capsuleIndications :Drug induced constipation Take 1 Capsule (100 mg) by mouth 2 times daily. 60 Capsule 11 11/09/19 21 Active glipiZIDE (GLUCOTROL) 10 mg tablet Take 1 Tablet (10 mg) by mouth 2 times daily with meals. 60 Tablet 11/26/19 21 Active atorvastatin (LIPITOR) 20 mg tablet TAKE 1 TABLET BY MOUTH DAILY LATE 30 Tablet 5 12/05/19 21 Active butalbital-acetami nophen-caffeine (FIORICET) 50-325-40 mg tablet TAKE 1 TABLET BY MOUTH EVERY 4 HOURS NEEDED FOR PAIN 100 Tablet 3 01/09/20 21 Active QUEtiapine (SEROquel) 100 mg tabletIndications: Recurrent major depressive disorder, in partial remission 1 tablet at 9 am and 3 pm 11/20/19 Active FLUoxetine (PROzac) 20 mg capsuleIndications :Recurrent major depressive disorder, in partial remission 1 tablet daily in am 11/12/19 Active varenicline (CHANTIX) 1 mg TabletIndications: Tobacco use Take 1 Tablet (1 mg) by mouth 2 times daily. 60 Tablet 3 01/23/20 Active baclofen (LIORESAL) 10 mg tablet Take 1-2 Tablets (10-20 mg) by mouth 3 times daily as needed (for muscle spasms).. 70 Tablet 5 02/13/20 Active OTHERIndications:C hronic bilateral low back pain with bilateral sciatica,Hip pain,Lumbosacral spondylosis without myelopathy Sock aid device 1 Device 1 02/15/20 Active gabapentin (NEURONTIN) 800 mg tablet TAKE 1 TABLET BY MOUTH 4 TIMES A DAY 120 Tablet 2 03/12/20 21 Active metFORMIN (GLUCOPHAGE) 500 mg tablet TAKE 2 TABLETS BY MOUTH TWICE A DAY DAILY WITH MEALS 120 Tablet 5 03/12/20 Active morphine (MS CONTIN) 60 mg Controlled Release tabletIndications: Myelopathy, spondylogenic, cervical,Chronic bilateral low back pain with bilateral sciatica Take 1 Tablet (60 mg) by mouth every 12 hours. For chronic, intractable pain -- MUST LAST 28 DAYS - Fill date 04/16/21 Max Daily Amount: 120 mg 56 Tablet 04/16/20 21 Active morphine (MS IR) 15 mg tabletIndications: Myelopathy, spondylogenic, cervical,Chronic bilateral low back pain with bilateral sciatica Take 1 Tablet (15 mg) by mouth 2 times daily as needed for Pain, Break-Through. MUST LAST 28 DAYS - Fill date 04/16/21 Max Daily Amount: 30 mg 56 Tablet 04/16/20 21 Active diazePAM (VALIUM) 5 mg tabletIndications: PTSD (post-traumatic stress disorder) TAKE 1 TABLET BY MOUTH EVERY 8 HOURS NEEDED FOR ANXIETY 30 Tablet 3 04/29/20 Active mupirocin calcium (BACTROBAN) 2 % Cream Apply to affected area 2 times daily. 30 Gram 1 04/30/20 Active metoprolol tartrate (LOPRESSOR) 50 mg tablet TAKE 1 TABLET BY MOUTH 2 TIMES DAILY. 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 GERD (gastroesophageal reflux disease) 0 Overview (03/19/2020): ADDED PER PVQ RESPONSE DOS . Anxiety associated with depression 03/12/2020 Gait instability 12/21/2018 Ambulates with cane 12/21/2018 Recurrent major depressive disorder, in partial remission 07/12/2018 DM type 2 with diabetic mixed hyperlipidemia Type 2 diabetes mellitus wit h hyperglycemia, without long-term current use of insulin 03/21/2018 Type 2 diabetes mellitus wit h diabetic autonomic neuropathy, without long-term current use of insulin 04/25/2017 Chronic bilateral low back pain with bilateral s ciatica 04/25/2017 Ambulatory dysfunction 04/25/2017 Weakness of both lower extremities 01/05/2017 Tobacco use 07/22/2016 Myelopathy, spondylogenic, cervical 07/04/2012 Lumbosacral spondylosis without myelopathy 07/04 Postlaminectomy syndrome, cervical region 2011 PTSD (post-traumatic stress disorder) 07/04/2012 Personal history of spine surgery 04/05/2012 Hip pain 03/17/2010 Knee pain 03/17/2010 Frequent falls 03/17/2010 Ulnar neuropathy 08/12/2009 Resolved Problems Problem Noted Date Diagnosed Date Resolved Date Encounter for colorectal cancer screening 04/28/2021 04/28/2021 Urinary retention 01/05/2017 05/02/2018 Lumbar stenosis 01/04/2017 04/25/2017 DM (diabetes mellitus), type 2 07/22/2016 04/25/2017 Displacement of lumbar inter vertebral disc without myelopathy 07/04/2012 05/02/2018 Lumbar radicular pain 07/04/20122016 Chronic low back pain with bilateral sciatica 03/17/20 10 04/25/2017 Wrist sprain and strain 08/12/200904/08 Sprain and strain of unspeci fied site of elbow and forearm 08/12/2009 04/25/2017 Immunizations Immunization Administration Dates Next Due (ADACEL/BOOSTRIX)(10 YR UP) TDAP VACCINE, 0.5ML, IM 05/05/2017,12/31/2016 (TESSA) COVID-19 VACCINE - EMERGENCY USE AUTHORIZATION, AD26,COV2S(PF) 0.5 ML IM SUSP 01/12/2021 (PNEUMOVAX 23)(50 YRS UP) PN EUMOCOCCAL POLYSACCHARIDE (PPV23) 0.5 ML, IM 08/13/2020,11/06/2019 INFLUENZA VACCINE QUADRIVALE NT 3 YR UP PF IM 09/13/2019 INFLUENZA VACCINE QUADRIVALE NT 6 MOS UP CELL DERIVED PF IM 08/13/2020 Influenza A (H1N1) Vaccine IM 08/08/2011 Influenza Seasonal Unspecifi ed Formulation IM 08/08/2020,09/13/2019,07/06/2017 Influenza Vaccine Quad Split 18 Yrs+ Im 07/12/20 18 Influenza Vaccine Tri Split 4+ Pf Im 08/01/2015 Family History Medical History Relation Name Comments Diabetes Father Heart Attack Father Diabetes Mother Hypertension Mother Relation Name Status Comments Father Mother Social History Tobacco Use Types Packs/Day Years Used Date Smoking Tobacco: Every Day Cigarettes 0.5 20 Smokeless Tobacco: Never Tobacco Cessation:Ready to Q uit: Yes; Counseling Given: Yes Alcohol Use Standard Drinks/Week Comments No 0 (1 standard drink = 0.6 oz pur e alcohol) Sex and Gender Information Value Date Recorded Sex Assigned at Not on file 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 Gender Identity Not on file Sexual Orientation Not on file Occupation Industry Job Start Date Job End Date Not on file Not on file Not on file Not on file Last Filed Vital Signs Vital Sign Reading Time Taken Comments Blood Pressure 68/48 04/28/2021 9:08 AM CDT Pulse 68 04/28/2021 9:08 AM CDT Temperature 35.1 C (95.2 F) 04/28/2021 9:08 AM CDT Respiratory Rate 16 04/28/2021 9:08 AM CDT Oxygen Saturation 96% 04/28/2021 9:08 AM CDT Inhaled Oxygen Concentration - - Weight 78.8 kg (173 lb 12.8 oz) 04/28/2021 9:08 AM CDT Height 172.7 cm (5' 8 ) 04/28/2021 9:08 AM CDT Body Mass Index 26.43 04/28/2021 9:08 AM CDT Plan of Treatment Health Maintenance Due Date Last Done Comments HEPATITIS B VACCINES (1 of 3 - 19+ 3-dose series) 1989 COLORECTAL SCREENING 2015 Colorectal Cancer Screening 2015 FIT-DNA Q 3 years 2015 FIT/FOBT Q 1 year 2015 Flex Sig/CT Colonography Q 5 years 2015 ZOSTER VACCINE (1 of 2) 02/24/2020 DIABETES MICROALBUMIN ANNUAL SCREEN 07/11/2021 07/11/2020, 11/06/2019, 03/18/2018 LDL CHOLESTEROL ANNUAL 10/22/2021 0, 11/06/2019, 05/16/2019, Additional history exists DIABETES HBA1C Q 6 MONTHS 04/06/20232021, 01/21/2022, 04/28/2021, Additional history exists DIABETES ANNUAL FOOT EXAM 04/14/2023 04/14/2022 INFLUENZA VACCINE (#1) 2025 2, 08/22/2021, 08/13/2020, Additional history exists COVID-19 Vaccine ( - 2024-2 6 season) 2025 07/23/2022, 01/08/2022, 01/12/2021 DIABETES ANNUAL RETINAL EXAM 08/15/202506/2024, 09/07/2023, 07/10/2022, Additional history exists DTAP/TDAP/TD VACCINES (3 - T d or Tdap) 05/05/2027 05/05/2017, 12/31/2016 [place] ([place]) Preventative Visit/Annual Wellness Visit Completed 12/14/2024, 04/23/2023, 12/21/2018 Medical Devices Implanted Type Area Warehouse Attendant Device Identifier Shelf Expiration Date Model / Serial / Lot Hemostatic Gelfoam Spng 12-7mm [id number] - Csc - Sn/A Implanted:Qty: 1 on 01/05/2017 by Hernesto Black MD at [facility] Hemostatic N/A: Spine Lumbar PFIZER- PHARM 04/07/2019 [id number] / N/A / [id number] Hemostatic Gelfoam Powder 1gm [id number] - Sn/A Implanted:Qty: 1 on 01/05/2017 by Hernesto Black MD at [facility] Hemostatic N/A: Spine Lumbar PFIZER- PHARM 05/07/2019 [id number] / N/A / [id number] Procedures Procedure Name Priority Date/Time Associated Diagnosis Comments HEMOGLOBIN A1C Routine 04/28/2021 10:29 AM CDT Type 2 diabetes mellitus with diabetic autonomic neuropathy, without long-term current use of insulin ([facility]/HCC) LIPID PANEL Routine 10/22/2020 10:58 AM PUBLIC POLICY PROFESSOR Type 2 diabetes mellitus with diabetic autonomic neuropathy, without long-term current use of insulin (CMS/HCC) DM type 2 with diabetic mixed hyperlipidemia ([facility]) Benign hypertension MICROALBUMIN/CREATI NINE RATIO, RANDOM UR Routine 07/11/2020 1:33 PM CDT 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) DIABETES EYE EXAM Routine 06/20/2020 from Last 3 Months or Most Recently Relevant to Health Maintenance Results * (ABNORMAL) HEMOGLOBIN A1C (04/28/2021 10:29 AM CDT) HEMOGLOBIN A1C 6.5(H) <5.7 % of total Hgb [employer] [place] Comment: For someone without known diabetes, a hemoglobin A1c value of 6.5% or greater indicates that they may have diabetes and this should be confirmed with a follow-up test. For someone with known diabetes, a value <7% indicates that their diabetes is well controlled and a value greater than or equal to 7% indicates suboptimal control. A1c targets should be individualized based on duration of diabetes, age, comorbid conditions, and other considerations. Currently, no consensus exists regarding use of hemoglobin A1c for diagnosis of diabetes for children. Test Performed at: [facility] [address] [place] [address] Cale Barragan D.O., MPH Blood 04/28/2021 10:2 9 AM CDT 04/29/2021 1:16 AM CDT Olamide GUDINOP CHEMISTRY ORDERABLES Final Res ult [employer] [place] [id number] [address] [id number] * (ABNORMAL) LIPID PANEL (10/22/2020 10:58 AM PUBLIC POLICY PROFESSOR) CHOLESTEROL 172 <200 mg/dL 10/23/2020 8:48 AM PUBLIC POLICY PROFESSOR [facility] TRIGLYCERIDE 204(H) <150 mg/dL 10/23/2020 8:48 AM PUBLIC POLICY PROFESSOR [facility] HDL 31(L) 40 - 59 mg/dL 10/23/2020 8:48 AM PUBLIC POLICY PROFESSOR [facility] LDL CALCULATED 100(H) <100 mg/dL 10/23/2020 8:48 AM PUBLIC POLICY PROFESSOR [facility] NON-HDL CHOLESTEROL 141(H) <130 mg/dL 10/23/2020 8:48 AM [facility] [place] Blood Venipuncture / Unknown 10/22/2020 10:58 AM PUBLIC POLICY PROFESSOR 10/22/2020 8:30 PM PUBLIC POLICY PROFESSOR Narrative [facility] - 10/23/2020 8:48 AM PUBLIC POLICY PROFESSOR TOTAL CHOLESTEROL mg/dL Desirable <200 Borderline high 200-239 High >=240 TRIGLYCERIDES mg/dL Normal <150 Borderline high 150-199 High 200-499 Very high >=500 HDL CHOLESTEROL mg/dL Low <40 Normal 40-59 Desirable >=60 NON HDL CHOLESTEROL mg/dL Optimal <130 Near Optimal 130-159 Borderline High 160-189 Very High >=190 CALCULATED LDL mg/dL LDL <70, OPTIMAL if have Atherosclerotic cardiovascular disease (ASCVD) or intermediate or higher (>7.5%) 10 year risk of ASCVD including most adults with diabetes. LDL <100, Optimal in adult patients with low (<7.5%) 10 year ASCVD risk LDL 100-160, Suboptimal LDL >160, High LDL >190, Very high ATPIII Guidelines Reference Ranges for Lipid Panels (NCEP/AMA) . Shiv Yo MD CHEMISTRY ORDERABLES Final Resu lt [facility] CLIA# [id number] [address] [place] [address] * MICROALBUMIN/CREATININE RATIO, RANDOM UR (07/11/2020 1:33 PM CDT) MICROALBUMIN, URINE <1.2 No Reference Range mg/dL 07/11/2020 9:25 PM CDT [facility] CREATININE, URINE 119.6 40.0 - 278.0 mg/dL 07/11/2020 9:25 PM CDT [facility] Comment:Reference Range vari es with fluid intake and diet. MICROALBUMIN/C REAT RATIO, UR <10.0 <17.0 mg/g 07/11/2020 9:25 PM CDT [facility] Urine URINE SPECIMEN OBTAINED BY CLEAN CATCH PROCEDURE / Unknown Collection / Unknown 07/11/2020 1:33 PM CDT 07/11/2020 7:55 PM CDT Narrative [facility] - 07/11/2020 9:25 PM CDT Condition Microalbumin/Creat ratio Normal Males <17 Normal Females <25 Microalbuminuria Males 17-299 Microalbuminuria Females 25-299 Overt proteinuria >=300 Shiv Yo MD URINE ORDERABLES Final Result [facility] CLIA# [id number] [place] [address] * DIABETES EYE EXAM (06/20/2020) us Abstract Spg Provider HEALTH MAINTENANCE Final R esult from Last 3 Months or Most Recently Relevant to Health Maintenance Insurance MEDICAID [facility] RX AETNA Medicare Part D RX INFOCROSSING Medicaid WORKERS COMP WORKERS COMP Advance Directives For more information, please contact: [phone] Documents on File Type Date Recorded Patient Ditcher Expl anation Advance Directive Living Will 05/23/2013 1:58 PM Advance Directive Living Will Advance Directive POA 11/17/2012 9:21 AM A dvance Directive POA Advance Directive Living Will 01/09/2012 * Full Code (Latest Code Status on File) Date Activated Date Inactivated Comments 10/07/2017 9:47 AM 10/07/2017 12:13 PM * Full Code Date Activated Date Inactivated Comments 01/04/2017 1:35 PM 01/08/2017 8:26 PM * Full Code Date Activated Date Inactivated Comments 03/18/2012 9:05 AM 03/20/2012 5:04 PM * Full Code Date Activated Date Inactivated Comments 03/18/2012 8:01 AM 03/18/2012 9:05 AM * Full Code Date Activated Date Inactivated Comments 12/10/2009 7:45 AM 12/11/2009 2:01 AM Care Teams Parts Department Manager Relationship Specialty Start Date End Date Shiv Yo MD [address], [place] [address] PCP - General Family Practice 06/28/18
--- OUTSIDE RECORDS SUMMARY | 2025-10-02 12:47 | XMS_ITS | Clinical Summary ---
Author Organization [facility] Address [address] [place] [address] Phone Care Team Providers Care Tree Surgeon Name Role Phone Girish Yo Primary Care Provider [phone] Allergies Active Allergy Reactions Criticality Noted Date Comments Blueberry Anaphylaxis High 03/12/2023 Penicillins Shortness of Breath/Wheezing High 2008 Medications loratadine (ALLERGY RELIEF) 10 mg tablet Take 1 Tablet (10 mg) by mouth 1 time daily as needed for Allergies.-GEN.CL ARITIN 100 Tablet 5 020 Active OTHERIndications :Chronic bilateral low back pain with bilateral sciatica,Hip pain,Lumbosacral spondylosis without myelopathy Sock aid device 1 Device 1 021 Active multivit-mineral s/folic acid (MULTIVITAMIN GUMMIES ORAL) Take 1 Dose by mouth daily. 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 May repeat in alternating nostrils every 2-3 min until responsive or EMS arrives. 2 Each 3 022 Active meclizine (ANTIVERT) 25 mg tablet TAKE 1 TABLET BY MOUTH 4 TIMES A DAY NEEDED 30 Tablet 3 022 Active amLODIPine (NORVASC) 10 mg tablet Take 1 Tablet (10 mg) by mouth daily. 90 Tablet 3 023 Active OTHERIndications :Acquired left foot drop AFO of left foot. New device, Fit and place AFO. JPO orthotics. 1 Each 023 Active diphenhydrAMINE 25 mg tablet Take 25-50 mg by mouth nightly as needed for Insomnia. Active lisinopriL (PRINIVIL) 5 mg tabletIndication s:Type 2 diabetes mellitus with diabetic autonomic neuropathy, without long-term current use of insulin ([facility]) Take 1 Tablet (5 mg) by mouth daily. 90 Tablet 1 023 Active lancets (Accu-Chek Softclix Lancets)Indicati ons:Type 2 diabetes mellitus with diabetic autonomic neuropathy, without long-term current use of insulin ([facility]) For daily glucose monitoring. 100 Each 5 024 Active butalbital-aceta minophen-caffein e (FIORICET) 50-325-40 mg tabletIndication s:Mixed headache Take 1 Tablet by mouth every 4 hours as needed for Pain. 100 Tablet 3 024 Active fluticasone propionate (FLONASE) 50 mcg/spray [place], Suspension nasal inhalerIndicatio ns:Sinus congestion Administer 2 Sprays in each nostril daily. 16 Gram 5 024 Active cholecalciferol, vitamin D3, 5,000 unitIndications: Bone bruise,Arthritis of right knee Take 1 Tablet (5,000 Units) by mouth daily. 90 Tablet 3 024 Active pen needle, diabetic (Comfort EZ Pen [place]) 33 gauge x 5/32 NeedleIndication s:Type 2 diabetes mellitus with diabetic autonomic neuropathy, without long-term current use of insulin ([facility]) USE WITH HUMALOG-KWIKPEN 100 Each 4 024 Active blood sugar diagnostic (Accu-Chek Guide test strips) StripIndications :Type 2 diabetes mellitus with hyperglycemia, without long-term current use of insulin ([facility]) To check blood sugar daily, alternating between fasting and 1 hour post meal. 100 Strip 5 024 Active ondansetron (ZOFRAN ODT) 4 mg Tablet, Rapid Dissolve Take 1 Tablet (4 mg) by mouth every 6 hours as needed for Nausea/Emesis. Dissolve tablet on top of tongue, then swallow with saliva. 10 Tablet 12/27/19 25 10:17 AM STRAW HAT WASHER OPERATOR 025 Active insulin lispro (HumaLOG KwikPen Insulin) 100 unit/mL pen syringeIndicatio ns:Type 2 diabetes mellitus with diabetic autonomic neuropathy, without long-term current use of insulin (CMS/HCC) INJECT 4 UNITS IF BLOOD SUGAR IS 200-250, IMJECT 6 UNITS IF 251-300,INJECT 8 UNITS IF 301-350, Max 50 units daily 15 mL 5 025 Active celecoxib (CeleBREX) 200 mg capsule Take 1 Capsule (200 mg) by mouth daily with breakfast. 30 Capsule 2 025 Active Additional Information Patient not taking.Reported on 10/02/2025 power wheelchairIndica tions:Myelopathy , spondylogenic, cervical,Acquire d left foot drop,Panlobular emphysema (CMS/HCC),Ambula tory dysfunction,Knee pain, unspecified chronicity, unspecified laterality,Hip pain, unspecified laterality,Lumbo sacral spondylosis without myelopathy,Weakn ess of both lower extremities,Post laminectomy syndrome, cervical region,Spinal stenosis of lumbar region, unspecified whether neurogenic claudication present,Gait instability Face to Face completed within 6 months: [...] claudication present (R26.81) Gait instability 1 Each 025 Active tamsulosin (FLOMAX) 0.4 mg capsule Take 2 Capsules (0.8 mg) by mouth daily. 180 Capsule 3 025 Active finasteride (PROSCAR) 5 mg tabletIndication s:Urinary retention Take 1 Tablet (5 mg) by mouth daily at bedtime. 90 Tablet 4 025 Active prazosin (MINIPRESS) 2 mg capsule take 2 capsules by mouth at bedtime 025 Active QUEtiapine (SEROquel) 50 mg tablet take 1 tablet by mouth 2 times a day as needed for anxiety 025 Active diazePAM (VALIUM) 5 mg tabletIndication s:PTSD (post-traumatic stress disorder) Take 1 Tablet (5 mg) by mouth every 8 hours as needed for Anxiety. EACH FILL MUST LAST 30 DAYS 90 Tablet 5 025 Active metoprolol tartrate (LOPRESSOR) 25 mg tabletIndication s:Benign hypertension Take 1 Tablet (25 mg) by mouth daily. 100 Tablet 3 025 Active atorvastatin (LIPITOR) 40 mg tabletIndication s:Dyslipidemia Take 1 Tablet (40 mg) by mouth daily. 100 Tablet 3 025 Active glipiZIDE (GLUCOTROL) 10 mg tabletIndication s:Type 2 diabetes mellitus with hyperglycemia, without long-term current use of insulin ([facility]) take 1 tablet by mouth twice a day with meals 180 Tablet 3 025 Active QUEtiapine (SEROquel) 100 mg tablet Take 100 mg by mouth daily at bedtime. 025 Active diclofenac sodium (VOLTAREN) 1 % gelIndications:I njury of right knee, sequela Apply 2 Grams to affected area 4 times daily as needed for Pain. 100 Gram 3 025 Active semaglutide (Ozempic) 1 mg/dose (4 mg/3 mL) Pen InjectorIndicati ons:Type 2 diabetes mellitus with hyperglycemia, without long-term current use of insulin ([facility]),Type 2 diabetes mellitus with diabetic autonomic neuropathy, without long-term current use of insulin ([facility]),DM type 2 with diabetic mixed hyperlipidemia ([facility]),Dyslip idemia Inject 1 mg by subcutaneous injection every 7 days. 3 mL 025 Active naloxegoL (Movantik) 25 mg TabletIndication s:Opioid-induced constipation Take 1 Tablet (25 mg) by mouth daily before breakfast. 30 Tablet 5 025 Active celecoxib (CeleBREX) 200 mg capsule Take 1 Capsule (200 mg) by mouth 2 times daily with meals. 60 Capsule 3 025 Active omeprazole (PriLOSEC) 20 mg Capsule, Delayed Release(E.C.)Ind ications:Gastroe sophageal reflux disease, unspecified whether esophagitis present Take 1 Capsule (20 mg) by mouth daily in the morning. 100 Capsule 3 025 Active albuterol sulfate HFA 90 mcg/actuation aerosol inhalerIndicatio ns:Centrilobular emphysema (CMS/HCC) Take 2 Puffs by inhalation every 6 hours as needed for Shortness of Breath or Wheezing. 8.5 Gram 025 Active famotidine (PEPCID) 20 mg tabletIndication s:Gastroesophage al reflux disease, unspecified whether esophagitis present Take 2 Tablets (40 mg) by mouth 2 times daily. 120 Tablet 3 025 Active docusate sodium (COLACE) 100 mg capsuleIndicatio ns:Drug-induced constipation Take 2 Capsules (200 mg) by mouth 2 times daily. 360 Capsule 1 025 Active FLUoxetine (PROzac) 40 mg capsuleIndicatio ns:PTSD (post-traumatic stress disorder) Take 1 Capsule (40 mg) by mouth daily in the morning. 90 Capsule 1 025 Active magnesium OXIDE (MAG-OX) 400 mg (241.3 mg magnesium) tabletIndication s:PTSD (post-traumatic stress disorder),Episod e of recurrent major depressive disorder, unspecified depression episode severity,S/P cervical spinal fusion,S/P lumbar fusion Take 1 Tablet (400 mg) by mouth daily. 90 Tablet 1 025 Active gabapentin (NEURONTIN) 800 mg tabletIndication s:Lumbosacral spondylosis without myelopathy Take 1 Tablet (800 mg) by mouth 4 times daily 120 Tablet 1 025 Active terbinafine HCL (LamISIL) 250 mg tabletIndication s:Onychomycosis Take 1 Tablet (250 mg) by mouth daily. 30 Tablet 1 025 Active metFORMIN (GLUCOPHAGE) 500 mg tabletIndication s:Type 2 diabetes mellitus with diabetic autonomic neuropathy, without long-term current use of insulin (CMS/HCC) TAKE 2 TABLETS BY MOUTH TWICE A DAY DAILY WITH MEALS 400 Tablet 3 025 Active morphine (MS CONTIN) 30 mg Controlled Release tabletIndication s:Chronic bilateral low back pain with bilateral sciatica,Lumbosa cral spondylosis without myelopathy,Myelo megan, spondylogenic, cervical Take 1 Tablet (30 mg) by mouth every 12 hours. Take with 60 mg. Will return to 15 mg when this is available. Max Daily Amount: 60 mg 56 Tablet 025 Active morphine (MS CONTIN) 60 mg Controlled Release tabletIndication s:Chronic bilateral low back pain with bilateral sciatica,Lumbosa cral spondylosis without myelopathy,Myelo megan, spondylogenic, cervical Take 1 Tablet (60 mg) by mouth every 12 hours. 28 DAYS Max Daily Amount: 120 mg 56 Tablet 025 Active baclofen (LIORESAL) 10 mg tabletIndication s:Gastroesophage al reflux disease, unspecified whether esophagitis present Take 1 TO 2 Tablets (10-20 mg) by mouth 3 times daily as needed (for muscle spasms). 70 Tablet 5 025 Active metFORMIN (GLUCOPHAGE) 500 mg tabletIndication s:Type 2 diabetes mellitus with diabetic autonomic neuropathy, without long-term current use of insulin ([facility]) TAKE 2 TABLETS BY MOUTH TWICE A DAY DAILY WITH MEALS 480 Tablet 3 024 2024 Discontinued semaglutide (Ozempic) 2 mg/dose (8 mg/3 mL) Pen InjectorIndicati ons:Type 2 diabetes mellitus with hyperglycemia, without long-term current use of insulin ([facility]),Type 2 diabetes mellitus with diabetic autonomic neuropathy, without long-term current use of insulin ([facility]),DM type 2 with diabetic mixed hyperlipidemia ([facility]),Dyslip idemia Inject 2 mg by subcutaneous injection every 7 days. 9 mL 3 025 2024 Discontinued( Duplicate Therapy) Ozempic 0.25 mg or 0.5 mg (2 mg/3 mL) Pen InjectorIndicati ons:Type 2 diabetes mellitus with hyperglycemia, without long-term current use of insulin ([facility]),Type 2 diabetes mellitus with diabetic autonomic neuropathy, without long-term current use of insulin ([facility]),DM type 2 with diabetic mixed hyperlipidemia ([facility]),Dyslip idemia Inject 0.5 mg by subcutaneous injection every 7 days. 3 mL 025 2024 Discontinued( Duplicate Therapy) morphine (MS CONTIN) 60 mg Controlled Release tabletIndication s:Chronic bilateral low back pain with bilateral sciatica,Lumbosa cral spondylosis without myelopathy,Myelo megan, spondylogenic, cervical Take 1 Tablet (60 mg) by mouth every 12 hours. 28 DAYS Max Daily Amount: 120 mg 56 Tablet 025 2024 Discontinued morphine (MS CONTIN) 30 mg Controlled Release tabletIndication s:Chronic bilateral low back pain with bilateral sciatica,Lumbosa cral spondylosis without myelopathy,Myelo megan, spondylogenic, cervical Take 1 Tablet (30 mg) by mouth every 12 hours. Take with 60 mg. Will return to 15 mg when this is available. Max Daily Amount: 60 mg 56 Tablet 025 2024 Discontinued baclofen (LIORESAL) 10 mg tablet Take 1 TO 2 Tablets (10-20 mg) by mouth 3 times daily as needed (for muscle spasms). 70 Tablet 1 025 2024 Discontinued Hospital, Clinic, or Other Facility Administered Medication Ordered Dose Route Frequency Start Date End Date Status lidocaine 2% jelly 5 mLIndications:Gross hematuria,Urinary retention 5 mL Urethral ONE TIME ONLY 05/08/2025 Active Active Problems Problem Noted Date Diagnosed Date Osteoarthritis of right knee 07/19/2025 Positive fecal immunochemical test 02/15/2024 Overview (02/15/2024): 02/14/24: postive FIT test. 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 2019 GERD (gastroesophageal reflux disease) 0 Overview (03/07/2021): ADDED PER PVQ RESPONSE DOS 5..2019 Benign hypertension 03/19/2020 Overview (03/07/2021): ADDED PER PVQ RESPONSE DOS 5..2019 Anxiety associated with depression 03/12/2020 Gait instability 12/21/2018 Ambulates with cane 12/21/2018 Recurrent major depressive disorder, in partial remission 07/12/2018 DM type 2 with diabetic mixed hyperlipidemia Type 2 diabetes mellitus wit h hyperglycemia, without long-term current use of insulin 03/21/2018 Chronic bilateral low back pain with bilateral s ciatica 04/25/2017 Ambulatory dysfunction 04/25/2017 Type 2 diabetes mellitus wit h diabetic autonomic neuropathy, without long-term current use of insulin 04/25/2017 Weakness of both lower extremities 01/05/2017 Lumbar stenosis 01/04/2017 Lumbar radiculopathy 07/04/2012 Lumbosacral spondylosis without myelopathy 07/04 Overview (01/28/2024): 01/28/2024: L3-L5 laminectomies. Minimal grade 1 retrolisthesis of L2 on L3 and L3-L4. Lumbar spine degenerative changes with multilevel mild disc space narrowing. Myelopathy, spondylogenic, cervical 07/04/2012 PTSD (post-traumatic stress disorder) 07/04/2012 Postlaminectomy syndrome, cervical region 2011 Personal history of spine surgery 04/05/2012 Hip pain 03/17/2010 Frequent falls 03/17/2010 Knee pain 03/17/2010 Ulnar neuropathy 08/12/2009 Leg numbness Pulmonary emphysema Resolved Problems Problem Noted Date Diagnosed Date Resolved Date Unintentional poisoning by opioid 05/21/2022 05/27/2022 Hypoxia 05/21/2022 11/24/2022 Fall from standing 04/26/2022 Loss of consciousness 04/26/20222021 Lower extremity paralysis 04/26/2022 Protein-calorie malnutrition, moderate 02/08/2022 02/09/2023 Leukocytosis (leucocytosis) 01/21/2022 11/24/2022 Encounter for colorectal cancer screening 04/28/2021 04/28/2021 Urinary retention 01/05/2017 05/02/2018 DM (diabetes mellitus), type 2 07/22/2016 04/25/2017 Displacement of lumbar inter vertebral disc without myelopathy 07/04/2012 05/02/2018 Chronic low back pain with bilateral sciatica 05/08/27 1004/25/2017 Sprain and strain of unspeci fied site of elbow and forearm 08/12/2009 04/25/2017 Wrist sprain and strain 08/12/200904/08 Pneumonia of both lower lobe s due to infectious organism 11/24/2022 Encounters Date Type Department Care Team Description 10/02/2025 8:20 AM STRAW HAT WASHER OPERATOR Office Visit [address] [phone] Elena López, JOHNNY 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) (Primary Dx); Benign hypertension; Periumbilical abdominal pain; Other fpc (current) drug therapy 09/19/2025 Telephone [facility] [address] [phone] Desiree Wetzel, EDWIN Question 09/14/[address] [phone] Girish Yo DO Gastroesophageal reflux disease, unspecified whether esophagitis present (Primary Dx) 09/11/[address] [phone] Girish Yo DO Chronic bilateral low back pain with bilateral sciatica; Lumbosacral spondylosis without myelopathy; Myelopathy, spondylogenic, cervical 09/05/[address] [phone] Girish Yo DO Type 2 diabetes mellitus with diabetic autonomic neuropathy, without long-term current use of insulin (CMS/HCC) 08/29/[address] [phone] Girish Yo DO Drug-induced constipation; PTSD (post-traumatic stress disorder); Episode of recurrent major depressive disorder, unspecified depression episode severity; S/P cervical spinal fusion; S/P lumbar fusion; Lumbosacral spondylosis without myelopathy; Onychomycosis 08/16/2025 [facility] [address] [phone] Girish Yo DO Bone bruise; Arthritis of right knee 08/15/[address] [phone] Girish Yo DO Gastroesophageal reflux disease, unspecified whether esophagitis present (Primary Dx) 08/14/[address] [phone] Girish Yo DO Centrilobular emphysema (CMS/HCC); Chronic bilateral low back pain with bilateral sciatica; Lumbosacral spondylosis without myelopathy; Myelopathy, spondylogenic, cervical 08/09/[address] [phone] Girish Yo DO Gastroesophageal reflux disease, unspecified whether esophagitis present (Primary Dx) 08/08/[address] [phone] Girish Yo DO Bone bruise; Arthritis of right knee 07/18/[address] [phone] Girish Yo DO Chronic bilateral low back pain with bilateral sciatica; Lumbosacral spondylosis without myelopathy; Myelopathy, spondylogenic, cervical 07/17/2025 10:00 AM CDT Office Visit [facility] [address] [place] [phone] Desiree Wetzel NP Primary osteoarthritis of right knee (Primary Dx) 07/17/[address] [phone] Girish Yo DO 07/14/2025 [facility] [address] [phone] Girish Yo, Type 2 diabetes mellitus with hyperglycemia, without long-term current use of insulin ([facility]/HCC); Type 2 diabetes mellitus with diabetic autonomic neuropathy, without long-term current use of insulin ([facility]); DM type 2 with diabetic mixed hyperlipidemia ([facility]); Dyslipidemia 07/12/2025 Refill [facility] [address] [phone] Girish Yo DO 07/11/2025 External Device Data ST[facility] ABSTRACTION Provider, Abstract from Last 3 Months Immunizations Immunization Administration Dates Next Due (ADACEL/BOOSTRIX)(10 YR UP) TDAP VACCINE, 0.5ML, IM 05/05/2017,12/31/2016,09/13/2012,10/14 (TESSA) COVID-19 VACCINE - EMERGENCY USE AUTHORIZATION, AD26,COV2S(PF) 0.5 ML IM SUSP 01/12/2021 (M-M-R II/PRIORIX)(12 MO UP) MEASLES, MUMPS AND RUBELLA VIRUS VACCINE, 0.5 ML IM/SUBCUT 10/14/2007 (PFIZER TETE)(12 YR UP PRIMA RY SERIES) COVID-19 VACCINE - EMERGENCY USE AUTHORIZATION, MRNA, TETE(PF) 30 MCG/0.3 ML IM SUSP 01/08/2022 (PFIZER)(12 YR UP) COVID-19 VACCINE - EMERGENCY USE AUTHORIZATION, MRNA, [id number](PF) 30 MCG/0.3 ML IM SUSP 07/23/2022 (PNEUMOVAX 23)(50 YRS UP) PN EUMOCOCCAL POLYSACCHARIDE (PPV23) 0.5 ML, IM 08/13/2020,11/06/2019 (PREVNAR 13)(6 WKS UP) PNEUM OCOCCAL CONJUGATE (PCV13) 0.5 ML, IM 10/07/2022 (SHINGRIX)(50 YRS UP) ZOSTER VACCINE RECOMBINANT, 0.5 ML, IM 04/11/2024,10/28/2023 (TWINRIX)(18 YRS UP) HEPATIT IS A AND HEPATITIS B VACCINE ADULT, 1 ML, IM 08/13/2008,11/21/2007,10/14/2007 INFLUENZA VACCINE QUADRIVALE NT 3 YR UP PF IM 09/13/2019 INFLUENZA VACCINE QUADRIVALE NT 6 MOS UP CELL DERIVED PF IM 08/13/2020 INFLUENZA VACCINE QUADRIVALE NT 6 MOS UP PF IM 08/16/2023,08/31/2022,09/13/2019 Influenza A (H1N1) Vaccine IM 08/08/2011 Influenza Seasonal Unspecifi ed Formulation IM 09/06/2024,08/22/2021,08/08/2020,09/13,07/06/2017,08/03/2013 Influenza Vaccine Quad Split 18 Yrs+ Im 07/12/2018 Influenza Vaccine Tri Split 4+ Pf Im 08/01/2015 Family History Medical History Relation Name Comments Cancer Brother Kye No Known Problems Daughter Mervat Diabetes Father Heart Attack Father Diabetes Mother Hypertension Mother No Known Problems Sister Makayla No Known Problems Son Christiano Colon Cancer Neg Hx Relation Name Status Comments Brother Kye Daughter Mervat Alive Father Mother Sister Makayla Alive Son Christiano Alive Social History Tobacco Use Types Packs/Day Years Used Date Smoking Tobacco: Every Day Cigarettes 0.5 Last attempted to quit: 02/10/2022 Passive Smoke Exposure: Never Smokeless Tobacco: Never Tobacco Cessation:Ready to Q uit: Not Asked; Counseling Given: Not Answered Alcohol Use Standard Drinks/Week Comments No 0 [...] on file Legal Sex Male 12:02 AM STRAW HAT WASHER OPERATOR Gender Identity Not on file Sexual Orientation Not on file Last Filed Vital Signs Vital Sign Reading Time Taken Comments Blood Pressure 120/76 10/02/2025 8:12 AM STRAW HAT WASHER OPERATOR Pulse 90 10/02/2025 8:12 AM STRAW HAT WASHER OPERATOR Temperature 36.4 C (97.6 F) 10/02/2025 8:12 AM STRAW HAT WASHER OPERATOR Respiratory Rate 18 10/02/2025 8:12 AM STRAW HAT WASHER OPERATOR Oxygen Saturation 96% 10/02/2025 8:12 AM STRAW HAT WASHER OPERATOR Inhaled Oxygen Concentration - - Weight 76.9 kg (169 lb 9.6 oz) 10/02/2025 8:12 A M STRAW HAT WASHER OPERATOR Height 172.7 cm (5' 8 ) 10/02/2025 8:12 AM STRAW HAT WASHER OPERATOR Body Mass Index 25.79 10/02/2025 8:12 AM STRAW HAT WASHER OPERATOR Plan of Treatment Upcoming Encounters Date Type Department Care Team (Late st Contact Info) Description 11/06/2025 9:20 AM STRAW HAT WASHER OPERATOR Office Visit [facility] [address] [place] [phone] Desiree Wetzel, TURN OUT [address] [place] [phone] Health Maintenance Due Date Last Done Comments FIT/ DNA Q 3 YEARS (AUTO ORDER) 02/24/1988 FLEX SIG/CT COLONOGRAPHY Q 5 YEARS (AUTO ORDER) 02/24/1988 FIT-DNA Q 3 years 2015 Flex Sig/CT Colonography Q 5 years 2015 FIT/FOBT Q 1 YEAR (AUTO ORDER) 02/02/2025 02/03/2024 FIT/FOBT Q 1 year 02/02/2025 02/03/2024 INFLUENZA VACCINE (#1) 2025 , 08/16/2023, 08/31/2022, Additional history exists COVID-19 Vaccine (2024-2 6 season) 2025 09/06/2024, 10/28/2023, 07/23/2022, Additional history exists DIABETES ANNUAL RETINAL EXAM 08/15/202506/2024, 09/07/2023, 07/10/2022, Additional history exists DIABETES: A1C (Auto Order) 09/22/202506/22, 03/22/2025, 09/13/2024, Additional history exists DIABETES HBA1C Q 6 MONTHS 12/23/20252024, 03/22/2025, 09/13/2024, Additional history exists DIABETES MICROALBUMIN ANNUAL SCREEN 03/07/2026 03/07/2025, 01/28/2024, 04/23/2023, Additional history exists DIABETES ANNUAL FOOT EXAM 03/22/20262024, 04/06/2024, 04/23/2023, Additional history exists LDL CHOLESTEROL ANNUAL 03/22/2026 , 01/28/2024, 04/23/2023, Additional history exists DTAP/TDAP/TD VACCINES (5 - T d or Tdap) 05/05/2027 05/05/2017, 12/31/2016, 09/13/2012, Additional history exists COLORECTAL CANCER SCREENING (AUTO ORDER) 08/07/2034 08/07/2024, 04/10/2024 COLORECTAL SCREENING 08/07/2034 08/07/2024, 04/10/20 24 Colorectal Cancer Screening (AUTO ORDER) 08/07/2034 Colorectal Cancer Screening 08/07/2034 HEPATITIS B VACCINES Completed 08/13/2008, 11/21/2007, 10/14/2007 Abdominal Aortic Aneurysm (A AA) Screening Completed 05/07/2021 ZOSTER VACCINE Completed 04/11/2024, 10/28/2023 Medicare Ad[place]) Preventative Visit/Annual Wellness Visit Completed 12/14/2024, 04/23/2023 KHE eGFR (Auto Order) Completed 03/22/2025 , 12/04/2024, 05/23/2024, Additional history exists KHE uACR (Auto Order) Completed 06/22/2025 , 03/07/2025, 01/28/2024, Additional history exists Medical Devices Implanted Type Area Credit Card Specialist Device Identifier Shelf Expiration Date Model / Serial / Lot Stimulan Rapid Cure Putty 5ml 620-005 - [id number] Implanted:Qty : 1 on 03/11/2023 by Hernesto Black MD at [facility] Biological N/A: Spine Lumbar [employer] 04/07/2025 620-005 / / [id number] Cage Endoskeleton Tcs Nanoloc [id number] Med Tcs St [id number] - [id number] Implanted:Qty : 1 on 02/04/2022 by Hernesto Black MD at [facility] Cage N/A: Spine Cervical Anterior [employer] [id number] 04/24/2025 [id number] / / [id number] Cage Divergence Lrdtc [id number] Peek Nucls [address] [id number] - [id number] Implanted:Qty : 1 on 02/04/2022 by Hernesto Black MD at [facility] Cage N/A: Spine Cervical Anterior [employer] 10/23/2028 [id number] / / [id number] Clip Ligating Horizon Sm [id number] - [id number] Implanted:Qty : 1 on 02/04/2022 by Hernesto Black MD at [facility] Clip N/A: Spine Cervical Anterior [employer] [id number] 09/22/2026 [id number] / / [id number] Clip Ligating Horizon Med Ti [id number] - Csc - [id number] Implanted:Qty : 1 on 02/04/2022 by Hernesto Black MD at [facility] Clip N/A: Spine Cervical Anterior TELEFLEX- WECK CLOSURE SYS [id number] 06/03/2025 [id number] / / [id number] Clip Crtg Med/Lrg 1112 - [id number] Implanted:Qty : 1 on 12/27/2024 by Arcenio Colbert DO at [facility] Clip N/A: Abdomen MICROLINE INC [id number] 08/05/2029 1112 / / [id number] Hemostatic Gelfoam Powder 1gm [id number] - Sn/A Implanted:Qty : 1 on 01/05/2017 by Hernesto Black MD Hemostatic N/A: Spine Lumbar PFIZER- PHARM 05/07/2019 [id number] / N/A / [id number] Hemostatic Gelfoam Spng 12-7mm [id number] - Csc - Sn/A Implanted:Qty : 1 on 01/05/2017 by Hernesto Black MD Hemostatic N/A: Spine Lumbar PFIZER- PHARM 04/07/2019 [id number] / N/A / [id number] Hemostatic Surgiflo 8ml W/ Thrombin 2994 - [id number] Implanted:Qty : 1 on 02/04/2022 by Hernesto Black MD at [facility] Hemostatic N/A: Spine Cervical Anterior J&J- ETHICON INC [id number] 05/07/2023 2994 / / [id number] Hemostatic Surgiflo 8ml W/ Thrombin 2994 - [id number] Implanted:Qty : 1 on 03/11/2023 by Hernesto Black MD at [facility] Hemostatic N/A: Spine Lumbar J&J- ETHICON INC [id number] 03/07/2024 2994 / / [id number] Plate Nags Head Vision Elite 19.0mm [id number] - [id number] Implanted:Qty : 1 on 02/04/2022 by Hernesto Black MD at [facility] Plate N/A: Spine Cervical Anterior MEDTRONIC- SOFAMOR DANEK [id number] / / Screw Nags Head Sd Fix 4.0x14mm [id number] - [id number] Implanted:Qty : 1 on 02/04/2022 by Hernesto Black MD at [facility] Screw N/A: Spine Cervical Anterior MEDTRONIC- SOFAMOR DANEK [id number] / / Screw Nags Head Sd Fix 4.0x14mm [id number] - [id number] Implanted:Qty : 1 on 02/04/2022 by Hernesto Black MD at [facility] Screw N/A: Spine Cervical Anterior MEDTRONIC- SOFAMOR DANEK [id number] / / Screw Nags Head Sd Fix 4.0x14mm [id number] - [id number] Implanted:Qty : 1 on 02/04/2022 by Hernesto Black MD at [facility] Screw N/A: Spine Cervical Anterior MEDTRONIC- SOFAMOR DANEK [id number] / / Screw Divergence Sa S-D 3.5x13mm [id number] - [id number] Implanted:Qty : 1 on 02/04/2022 by Hernesto Black MD at [facility] Screw N/A: Spine Cervical Anterior MEDTRONIC- SOFAMOR DANEK [id number] 12/09/2029 [id number] / / [id number] Putty [place] Dbf 1ml [id number] - [id number] Implanted:Qty : 1 on 02/04/2022 by Hernesto Black MD at [facility] Tissue N/A: Spine Cervical Anterior MEDTRONIC- SOFAMOR DANEK 01/05/2024 [id number] / / [id number] Explanted Type Area Credit Card Specialist Device Identifier Shelf Expiration Date Model / Serial / Lot Screw Nags Head Sd Fix 4.0x14mm [id number] - [id number] Explanted:Qty: 1 on 02/04/2022 by Hernesto Black MD at [facility] Screw N/A: Spine Cervical Anterior MEDTRONIC- SOFAMOR DANEK [id number] / / Screw Endoskeleton 3.5x14mm Tcs Ns [id number] - [id number] Explanted:Qty: 1 on 02/04/2022 by Hernesto Black MD at [facility] Screw N/A: Spine Cervical Anterior MEDTRONIC- SOFAMOR DANEK [id number] / / [id number] Procedures Procedure Name Priority Date/Time Associated Diagnosis Comments HEMOGLOBIN A1C Routine 06/22/2025 10:54 AM CDT 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) COMPREHENSIVE METABOLIC PANEL Routine 03/22/2025 10:09 AM CDT 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) Benign hypertension LIPID PANEL Routine 03/22/2025 10:09 AM CDT 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) Benign hypertension Dyslipidemia MICROALBUMIN/CREATINI NE RATIO, RANDOM UR Routine 03/07/2025 8:06 AM CDT 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 ESTIMATED AVERAGE GLUCOSE (MG/DL) 220 mg/dL [facility] ESTIMATED AVERAGE GLUCOSE (MMOL/L) 12.2 mmol/L [facility] Comment: FASTING:NO FASTING: NO Test Performed at: [facility] [address] [phone] Celeste Benavides MD Blood 06/22/2025 10:5 4 AM CDT 06/22/2025 10:54 AM CDT Girish Yo DO CHEMISTRY ORDERABLES Final Re sult [facility] [phone] [facility] [address] [address] [address] * (ABNORMAL) LIPID PANEL (03/22/2025 10:09 AM CDT) CHOLESTEROL 153 <200 mg/dL [facility] HDL 37(L) > OR = 40 mg/dL [facility] TRIGLYCERIDE 299(H) <150 mg/dL [facility] Comment: If a non-fasting specimen was collected, consider repeat triglyceride testing on a fasting specimen if clinically indicated. Macho et al. J. of Clin. Lipidol. 2015;9:129-169. LDL CALCULATED 80 mg/dL (calc) [facility] Comment: Reference range: <100 Desirable range <100 mg/dL for primary prevention; <70 mg/dL for patients with CHD or diabetic patients with > or = 2 CHD risk factors. LDL-C is now calculated using the Favian-Simmons calculation, which is a validated novel method providing better accuracy than the Friedewald equation in the estimation of LDL-C. Favian PHIPPS et al. GARY. 2013;310(19): 6185-9200 (http://education.Zdorovio/faq/MDL495) CHOL/HDL RATIO 4.1 <5.0 (calc) [facility] NON-HDL CHOLESTEROL 116 <130 mg/dL (calc) [facility] Comment: For patients with diabetes plus 1 major ASCVD risk factor, treating to a non-HDL-C goal of <100 mg/dL (LDL-C of <70 mg/dL) is considered a therapeutic option. Test Performed at: [facility] [address] [facility] [place] [address] Celeste Benavides MD Blood 03/22/2025 10:0 9 AM CDT 03/22/2025 10:11 AM CDT Girish Yo DO CHEMISTRY ORDERABLES Final Re sult [facility] [phone] [facility] [address] [facility] [place] [address] * (ABNORMAL) COMPREHENSIVE METABOLIC PANEL (03/22/2025 10:09 AM CDT) GLUCOSE 130 65 - 139 mg/dL [facility] Comment: Non-fasting reference interval BUN 9 7 - 25 mg/dL [facility] CREATININE 0.69(L) 0.70 - 1.30 mg/dL [facility] GFR 109 > OR = 60 mL/min/1.7 3m2 [facility] BUN/CREAT RATIO 13 6 - 22 (calc) [facility] SODIUM 138 135 - 146 mmol/L [facility] POTASSIUM 4.2 3.5 - 5.3 mmol/L [facility] CHLORIDE 100 98 - 110 mmol/L [facility] CO2 26 20 - 32 mmol/L [facility] CALCIUM 9.6 8.6 - 10.3 mg/dL [facility] TOTAL PROTEIN 6.9 6.1 - 8.1 g/dL [facility] ALBUMIN 4.1 3.6 - 5.1 g/dL [facility] GLOBULIN 2.8 1.9 - 3.7 g/dL (calc) [facility] ALBUMIN/GLOBULIN RATIO 1.5 1.0 - 2.5 (calc) [facility] BILIRUBIN TOTAL 0.4 0.2 - 1.2 mg/dL [facility] ALKALINE PHOSPHATASE 78 35 - 144 U/L [facility] AST 16 10 - 35 U/L [facility] ALT 20 9 - 46 U/L [facility] Comment: FASTING:NO FASTING: NO Test Performed at: [facility] [address] Celeste Benavides MD Blood 03/22/2025 10:0 9 AM CDT 03/22/2025 10:11 AM CDT us Girish Yo DO CHEMISTRY ORDERABLES Final Re sult [facility] [phone] [facility] [address] * MICROALBUMIN/CREATININE RATIO, RANDOM UR (03/07/2025 8:06 AM CDT) CREATININE, URINE 85 20 - 320 mg/dL [facility] ALBUMIN, URINE 0.5 See Note: mg/dL [facility] Comment: Reference Range: Reference Range Not established ALB/CREAT RATIO, URINE 6 <30 mg/g creat [facility] Comment: The ADA defines abnormalities in albumin excretion as follows: Albuminuria Category Result (mg/g creatinine) Normal to Mildly increased <30 Moderately increased 30-299 Severely increased > OR = 300 The ADA recommends that at least two of three specimens collected within a 3-6 month period be abnormal before considering a patient to be within a diagnostic category. Test Performed at: [facility] [address] [place] [phone] Celeste Benavides MD Urine URINE SPECIMEN OBTAINED BY CLEAN CATCH PROCEDURE / Unknown 03/07/2025 8:06 AM CDT 03/08/2025 2:37 AM CDT Girish Yo DO URINE ORDERABLES Final Result Performing Organization Address City/[facility]/ZIP Co de Phone Number [facility] [phone] [facility] [address] * HM DIABETES EYE EXAM (08/15/2024 3:06 PM CDT) Yoseph Lopez OD HEALTH MAINTENANCE Final R esult Performing Organization Address City/[facility] Co de Phone Number [facility]# [id number] [address] [place] [phone] * (ABNORMAL) OCCULT BLOOD IMMUNOASSAY, COLORECTAL SCREEN (02/03/2024 12:00 AM CDT) FECAL GLOBIN SEE NOTE(A) [facility] Comment: FECAL GLOBIN BY IMMUNOCHEMISTRY Micro Number: [id number] Test Status: Final Specimen Source: Stool Specimen Quality: Adequate Fecal Globin: Detected Test Performed at: [facility] [address] Celeste Benavides MD Stool STOOL SPECIMEN / Unknown 02/03/2024 02/14/2024 11:11 AM CDT Girish Yo DO BODY FLUIDS AND STOOLS Final Result [facility] [phone] [facility] [address] [address] [address] * US ABDOMEN COMPLETE (05/07/2021 11:34 AM CDT) Anatomical Region Laterality Modality Abdomen Other Impressions 05/07/2021 4:26 PM CDT Please see below. Exam: US ABDOMEN COMPLETE Date/Time of Exam: 05/07/2021 11:34 AM Reason For Exam: See Diagnosis. Diagnosis: Periumbilical abdominal pain. Findings: The hepatic parenchyma is diffusely somewhat dense and hyperechoic. The liver measures as much is 27 m in length. There is some focal fatty sparing adjacent to the gallbladder fossa. There is a tiny mobile stone within the gallbladder lumen. The gallbladder wall thickness is normal. The common bile duct measures 3.2 mm in diameter. The pancreas is unremarkable. The spleen is normal. The right kidney measures 10.67 m in length. The left kidney measures 12.0 cm in length. The visible abdominal aorta and IVC are unremarkable. IMPRESSION: Hepatomegaly and fatty infiltration of the liver. Cholelithiasis. Narrative Procedure Note Danny Hendrix MD - 05/08/2021 IMPRESSION Please see below. Exam: US ABDOMEN COMPLETE Date/Time of Exam: 05/07/2021 11:34 AM Reason For Exam: See Diagnosis. Diagnosis: Periumbilical abdominal pain. Findings: The hepatic parenchyma is diffusely somewhat dense and hyperechoic. The liver measures as much is 27 m in length. There is some focal fatty sparing adjacent to the gallbladder fossa. There is a tiny mobile stone within the gallbladder lumen. The gallbladder wall thickness is normal. The common bile duct measures 3.2 mm in diameter. The pancreas is unremarkable. The spleen is normal. The right kidney measures 10.67 m in length. The left kidney measures 12.0 cm in length. The visible abdominal aorta and IVC are unremarkable. IMPRESSION: Hepatomegaly and fatty infiltration of the liver. Cholelithiasis. us Olamide Goodrich GOLF COURSE ARCHITECT US ORDERABLES Final Result from Last 3 Months or Most Recently Relevant to Health Maintenance Insurance MEDICAID [place] [facility] * Guarantor: MERT SPAIN Account Type Relation to Patient Date of Phone Billing Address Personal/Family [address] [place] [address] [employer] Medicare Part D RX [employer] Medicaid Advance Directives For more information, please contact: [phone] * Full Code (Latest Code Status on File) Date Activated Date Inactivated Comments 12/27/2024 7:14 AM 12/27/2024 2:14 PM * Full Code Date Activated Date Inactivated Comments 08/07/2024 9:49 AM 08/07/2024 12:35 PM * Full Code Date Activated Date Inactivated Comments 08/07/2024 9:04 AM 08/07/2024 9:49 AM * Full Code Date Activated Date Inactivated Comments 04/10/2024 10:54 AM 04/10/2024 2:13 PM * Full Code Date Activated Date Inactivated Comments 04/10/2024 10:51 AM 04/10/2024 10:54 AM Care Teams Tree Surgeon Relationship Specialty Start Date End Date Girish Yo DO [address] [place] [address] PCP - General Family Practice 06/05/22
--- OUTSIDE RECORDS SUMMARY | 2025-10-02 12:47 | XMS_ITS | Encounter Summary ---
Author Organization [facility] Address [address] [place] [address] Care Team Providers Care Tank Car Loader Name Role Phone Shiv Yo MD Primary Care Provider [phone] Encounter Details Date Type Department Care Team (Late st Contact Info) Description 06/19/2007 Emergency [facility] Emergency Department [address] [place] [phone] Hemalatha Reyna MD [address] 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
--- OUTSIDE RECORDS SUMMARY | 2025-10-02 12:47 | XMS_ITS | Encounter Summary ---
Author Organization [facility] Address [address] [place] [address] Care Team Providers Care Tub Mender Name Role Phone Shiv Yo MD Primary Care Provider [phone] Encounter Details Date Type Department Care Team (Late st Contact Info) Description 06/20/2007 Outpatient Historical [facility] Imaging Services [facility] [address] 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
--- OUTSIDE RECORDS SUMMARY | 2025-10-02 12:47 | XMS_ITS | Encounter Summary ---
Author Organization [facility] Address [address] [place] [address] Care Team Providers Care Field Training Manager Name Role Phone Shiv Yo MD Primary Care Provider [phone] Encounter Details Date Type Department Care Team (Late st Contact Info) Description 06/20/2007 Outpatient Historical [facility] Imaging Services [place] [address] 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
--- OUTSIDE RECORDS SUMMARY | 2025-10-02 12:47 | XMS_ITS | Encounter Summary ---
Author Organization [facility] Address [address] [place] [address] Care Team Providers Care Bow Repairer Custom Name Role Phone Shiv Yo MD Primary Care Provider [phone] Encounter Details Date Type Department Care Team (Late st Contact Info) Description 10/28/2007 Outpatient Historical [facility] Orthopedics- 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
--- OUTSIDE RECORDS SUMMARY | 2025-10-02 12:47 | XMS_ITS | Encounter Summary ---
Author Organization [facility] Address [address] [place] [address] Care Team Providers Care Automatic Washer Mechanic Name Role Phone Shiv Yo MD Primary Care Provider [phone] Encounter Details Date Type Department Care Team (Late st Contact Info) Description 12/05/[address] [facility] Orthopedics- [address] [place] 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 SUBJECTIVE: Javid returns today for the results of his FCE. He is still having pain in the back of his knee and is requesting a refill on his Flexeril. They help him sleep at night. PSYCH: The patient is alert and oriented times three with normal mood and affect. CONSTITUTIONAL: The patient is well developed, well nourished, and in no acute distress. SKIN: The skin is of normal color and texture. PHYSICAL EXAMINATION: Hes got no effusion. He has a non antalgic gait. His FCE was reviewed. It revealed that he had a high level of subjective complaints but very little objective deficits noted. They gave him a medium work level with no restrictions on reaching, bending, sitting, standing, walking. There is some restriction on squatting just occasionally, stair climbing occasionally, very occasional crawling, protective heights for balance, material handlinlb leg lifts, 50lb carrying, lifting to shoulder level 40lb, overhead lifting 35lbs, leg lift 20lbs, frequently, carrying 30lb frequently, lifting body level 25lbs may happen frequently. NEUROLOGICAL: Grossly intact motor sensory examination. RADIOGRAPHIC FINDINGS: none taken. ASSESSMENT: Status post right knee arthroscopic removal of loose bodies, abrasion chondroplasty of the patella trochlea and the medial femoral condyle. TREATMENT AND PLAN: Patient has reached maximum medical improvement. I have given him restrictions to do occasional squatting, stair climbing and crawling. I refilled his Flexeril for the last time. Dispensed #30 with no refills. I will see him back on a PRN basis. David Longoria M.D. [facility] Electronically Signed by David Longoria M.D. 12/07/2007 13:09 , P, mm1 Job #: Document #: [id number] cc: RVISOR METAL FABRICATING * David Longoria - 12/05/2007 12:00 AM CST Patient Name: Javid Spain DOS: 12/09/2007 : 1970 Visit #: RE: Javid [place] Employer: [employer] Accident Date: 06/12/2007 File No. [id number] Date of Evaluation: 12/09/2007 Based on the Guides to the Evaluation of Permanent Medical Impairment, Fifth Edition, (Revised), published by the [employer], based on strength, range of motion, intermittent pain, surgical findings of his right knee, I believe he has 2% percent permanent physical impairment of the right knee. I believe he has reached maximum improvement with regard to his knee complaints and I am discharging him from my care. David Longoria M.D. [facility] Electronically Signed by David Longoria M.D. 12/13/2007 14:50 , P, mm1 Job #: Document #: [id number] cc: RVISOR METAL FABRICATING documented in this encounter Plan of Treatment Not on file documented as of this encounter Visit Diagnoses Not on filedocumented in this encounter Care Teams Automatic Washer Mechanic Relationship Specialty Start Date End Date Shiv Yo MD [address] [place] [address] PCP - General Family Practice 06/28/18 documented as of this encounter
--- OUTSIDE RECORDS SUMMARY | 2025-10-02 12:47 | XMS_ITS | Encounter Summary ---
Author Organization [facility] Address [address] [place] [address] Care Team Providers Care Confidential Investigator Name Role Phone Shiv Yo MD Primary Care Provider [phone] Encounter Details Date Type Department Care Team (Late st Contact Info) Description 06/20/2007 Outpatient Historical [facility] Orthopedics- 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
--- OUTSIDE RECORDS SUMMARY | 2025-10-02 12:47 | XMS_ITS | Encounter Summary ---
Author Organization [facility] Address [address] [place] [address] Care Team Providers Care Supervisor Rolling Room Name Role Phone Shiv Yo MD Primary Care Provider Encounter Details Date Type Department Care Team (Late st Contact Info) Description 04/04/2010 Ancillary Orders [facility] MRI [address] [place] [phone] Curly Bender, PA NO ADDRESS ON FILE Pain Social History Tobacco Use Types Packs/Day Years Used Date Smoking Tobacco: Every Day Cigarettes Alcohol Use Standard Drinks/Week Comments No 0 (1 standard drink = 0.6 oz pur e alcohol) Sex and Gender Information Value Date Recorded Sex Assigned at Not on file 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 Tiny popliteal cyst. jaw - uploaded from [employer] - Narrative 04/08/2010 7:10 AM CDT Exam: MRI KNEE WO CONTRAST RIGHT Date/Time of Exam: April 04, 2010 12:51:00 PM History: PAIN. Technique: MRI of the right knee was performed without the administration of intravenous contrast. Findings: The menisci, cruciate ligaments, collateral limits and extensor tendons are intact. There is a small joint effusion. There is marked cartilage loss of the patellofemoral joint including the patellar apex and femoral trochlea. Areas of cartilage irregularity and loss are also present involving the medial femoral condyle (example series 10 image 17). Normal amount of joint fluid evident. Tiny popliteal cyst. Procedure Note Ganesh Washburn MD - 04/08/2010 Exam: MRI KNEE WO CONTRAST RIGHT Date/Time of Exam: April 04, 2010 12:51:00 PM History: PAIN. Technique: MRI of the right knee was performed without the administration of intravenous contrast. Findings: The menisci, cruciate ligaments, collateral limits and extensor tendons are intact. There is a small joint effusion. There is marked cartilage loss of the patellofemoral joint including the patellar apex and femoral trochlea. Areas of cartilage irregularity and loss are also present involving the medial femoral condyle (example series 10 image 17). Normal amount of joint fluid evident. Tiny popliteal cyst. 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 Tiny popliteal cyst. jaw - uploaded from [employer] - us Curly A Yulia SYLVESTER MR ORDERABLES Final Result documented in this encounter Visit Diagnoses Diagnosis Pain Generalized pain Pain Generalized pain documented in this encounter Care Teams Supervisor Rolling Room Relationship Specialty Start Date End Date Shiv Yo MD [address] [place] [phone] PCP - General Family Practice 06/28/18 documented as of this encounter
--- OUTSIDE RECORDS SUMMARY | 2025-10-02 12:47 | XMS_ITS | Encounter Summary ---
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 Gender Identity Not on file Sexual Orientation Not on file documented as of this encounter Plan of Treatment Not on file documented as of this encounter Procedures Procedure Name Priority Date/Time Associated Diagnosis Comments RUBELLA IGG Routine 06/08/2006 9:34 AM CDT HEPATITIS B SURFACE AB IGG Routine 06/08/2006 9:33 AM CDT MUMPS IGG ANTIBODY Routine 06/08/2006 9: 33 AM CDT documented in this encounter Results * RUBELLA IGG (06/08/2006 9:34 AM CDT) RUBELLA IGG Immune Immune INTERFAC E SYSTEM 06/08/2006 9:34 AM CDT us Herminio Caicedo MD CHEMISTRY ORDERABLES Final Re sult INTERFACE SYSTEM Refer to clinic/hospital department * MUMPS IGG ANTIBODY (06/08/2006 9:33 AM CDT) MUMPS IGG AB Immune Immune INTERFA CE SYSTEM 06/08/2006 9:33 AM CDT us Herminio Caicedo MD CHEMISTRY ORDERABLES Final Re sult Performing Organization Address [facility] de Phone Number INTERFACE SYSTEM Refer to clinic/hospital department * (ABNORMAL) HEPATITIS B SURFACE AB IGG (06/08/2006 9:33 AM CDT) HEPATITIS B SURFACE AB Positive(A ) INTERFACE SYSTEM 06/08/2006 9:33 AM CDT us Herminio Caicedo MD CHEMISTRY ORDERABLES Final Re sult Performing Organization Address [facility] de Phone Number INTERFACE SYSTEM Refer to clinic/hospital department documented in this encounter Visit Diagnoses Not on filedocumented in this encounter Care Teams Train Clerk Relationship Specialty Start Date End Date Shiv Yo MD [address] [place] [phone] PCP - General Family Practice 06/28/18 documented as of this encounter
--- OUTSIDE RECORDS SUMMARY | 2025-10-02 12:47 | XMS_ITS | Encounter Summary ---
Author Organization [facility] Address [address] [place] [address] Care Team Providers Care Manager Cardiac Name Role Phone Shiv Yo MD Primary Care Provider Encounter Details Date Type Department Care Team (Late st Contact Info) Description 05/24/2006 Emergency [facility] Emergency Department [address] [place] [phone] Ramírez Coats MD NO ADDRESS ON FILE Contusion of Hand(s) (Primary Dx) Social History Tobacco Use Types Packs/Day Years Used Date Smoking Tobacco: Never Assessed Sex and Gender Information Value Date Recorded Sex Assigned at Not on file 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 HISTORY: Injury. No comparisons. There is no evidence for fracture, dislocation, or other acute radiographic abnormality. There is very mild scattered degenerative change. IMPRESSION: No acute radiographic abnormality noted. gb Dictated By: Gissell Lucio M.D. Electronically Signed By: Gissell Lucio M.D. Date Signed: 05/24/06 Procedure Note 09/26/2009 RIGHT HAND DATE: 05/24/2006. HISTORY: Injury. No comparisons. There is no evidence for fracture, dislocation, or other acuteradiographic abnormality. There is very mild scattered degenerative change. IMPRESSION: No acute radiographic abnormality noted. gb Dictated By: Gissell Lucio M.D. Electronically Signed By: Gissell Lucio M.D. Date Signed: 05/24/06 us Ramírez Coats MD DIAGNOSTIC IMAGING ORDERABLES F inal Result documented in this encounter Visit Diagnoses Diagnosis Contusion of hand(s)- Primary documented in this encounter Care Teams Manager Cardiac Relationship Specialty Start Date End Date Shiv Yo MD [address] [place] [phone] PCP - General Family Practice 06/28/18 documented as of this encounter
--- OUTSIDE RECORDS SUMMARY | 2025-10-02 12:47 | XMS_ITS | Encounter Summary ---
Author Organization [facility] Address [address] [place] [address] Care Team Providers Care Benefits Manager Name Role Phone Shiv Yo MD Primary Care Provider [phone] Encounter Details Date Type Department Care Team (Late st Contact Info) Description 05/13/2006 Outpatient Historical [facility] [address] 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 CLINICAL INFORMATION: Chest pain. FINDINGS: The lungs are clear and there are no effusions. The cardiomediastinal and hilar contours are within normal limits. No significant bony disease is evident. IMPRESSION: Negative. paul [id number] Dictated By: Ganesh Washburn M.D. Electronically Signed By: Ganesh Washburn M.D. Date Signed: 05/26/06 PAUL Procedure Note 09/26/2009 PA CHEST PERFORMED AN AP ERECT DATE: 05/13/2006. CLINICAL INFORMATION: Chest pain. FINDINGS: The lungs are clear and there are no effusions. The cardiomediastinal andhilar contours are within normal limits. No significant bony disease is evident. IMPRESSION: Negative. paul [id number] Dictated By: Ganesh Washburn M.D. Electronically Signed By: Ganesh Washburn M.D. Date Signed: 05/26/06 PAUL us Javid Deluca MD DIAGNOSTIC IMAGING ORDER HAY Final Result documented in this encounter Visit Diagnoses Diagnosis Precordial pain- Primary documented in this encounter Care Teams Benefits Manager Relationship Specialty Start Date End Date Shiv Yo MD [address] [place] [address] PCP - General Family Practice 06/28/18 documented as of this encounter
--- OUTSIDE RECORDS SUMMARY | 2025-10-02 12:47 | XMS_ITS | Encounter Summary ---
Author Organization [facility] Address [address] [place] [address] Care Team Providers Care Environmental Director Name Role Phone Shiv Yo MD Primary Care Provider [phone] Encounter Details Date Type Department Care Team (Late st Contact Info) Description 07/05/2007 Outpatient Historical [facility] [address] [place] [address] [facility] [address] [place] [phone] David Longoria MD [address] [place] [phone] Loose Body in Knee (Primary Dx) Social History Tobacco Use Types Packs/Day Years Used Date Smoking Tobacco: Never Assessed Sex and Gender Information Value Date Recorded Sex Assigned at Not on file 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
--- OUTSIDE RECORDS SUMMARY | 2025-10-02 12:47 | XMS_ITS | Encounter Summary ---
Author Organization [facility] Address [address] [place] [address] Care Team Providers Care Range Ecologist Name Role Phone Shiv Yo MD Primary Care Provider Encounter Details Date Type Department Care Team (Latest Contact Info) Description 06/17/2007 Outpatient Historical [facility] Imaging Services [facility] [address] [place] [phone] David Longoria MD [address] [place] [phone] Encounters for Unspecified Administrative Purpose (Primary Dx) Social History Tobacco Use Types Packs/Day Years Used Date Smoking Tobacco: Never Assessed Sex and Gender Information Value Date Recorded Sex Assigned at Not on file 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
--- OUTSIDE RECORDS SUMMARY | 2025-10-02 12:47 | XMS_ITS | Encounter Summary ---
Author Organization [facility] Address [address] [place] [address] Care Team Providers Care Torsion [place] Coiling Machine Setter Name Role Phone Shiv Yo MD Primary Care Provider [phone] Reason for Referral * Outpatient Services (Routine) - Closed Specialty Diagnoses / Procedures Referred By Randa strong Referred To Contact Pain Management Diagnoses Radiculitis, lumbosacral Procedures XR FLUORO NEEDLE GUIDANCE James Nino MD NO ADDRESS ON FILE Referral ID Status Reason Start Date Expiration Date Visits Re quested Visits Authorized [id number] Closed 07/19/2012 07/19/2013 1 1 Encounter Details Date Type Department Care Team (Late st Contact Info) Description 07/19/2012 Ancillary Orders [facility] Pain Management Procedures [place] [address] [place] [phone] James Nino MD NO ADDRESS ON FILE Radiculitis, lumbosacral Social History Tobacco Use Types Packs/Day Years Used Date Smoking Tobacco: Every Day Cigarettes 0.5 20 Smokeless Tobacco: Never Alcohol Use Standard Drinks/Week Comments No 0 (1 standard drink = 0.6 oz pur e alcohol) Sex and Gender Information Value Date Recorded Sex Assigned at Not on file 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 Exam was auto-finalized. Procedure Note Aleah Crespo, RT - 07/19/2012 Order information only. Exam was auto-finalized. us James Nino MD DIAGNOSTIC IMAGING ORDERAB LES Final Result documented in this encounter Visit Diagnoses Diagnosis Radiculitis, lumbosacral Thoracic or lumbosacral neuritis or radiculitis, unspecified Radiculitis, lumbosacral Thoracic or lumbosacral neuritis or radiculitis, unspecified documented in this encounter Care Teams [place] Coiling Machine Setter Relationship Specialty Start Date End Date Shiv Yo MD [address] [place] [phone] PCP - General Family Practice 06/28/18 documented as of this encounter
--- OUTSIDE RECORDS SUMMARY | 2025-10-02 12:47 | XMS_ITS | Encounter Summary ---
Author Organization [facility] Address [address] [place] [address] Care Team Providers Care Bath Solution Maker Name Role Phone Shiv Yo MD Primary Care Provider [phone] Encounter Details Date Type Department Care Team (Late st Contact Info) Description 05/13/2006 Emergency [facility] Emergency Department [address] [place] [phone] Nikolay Collazo MD [address] [place], [place] [id number] Unspecified Chest Pain (Primary Dx) Social History Tobacco Use Types Packs/Day Years Used Date Smoking Tobacco: Never Assessed Sex and Gender Information Value Date Recorded Sex Assigned at Not on file 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 Gender Identity Not on file Sexual Orientation Not on file documented as of this encounter Plan of Treatment Not on file documented as of this encounter Procedures Procedure Name Priority Date/Time Associated Diagnosis Comments CARDIAC ENZYMES Routine 05/13/2006 8:28 AM CDT CBC WITH DIFFERENTIAL Routine 05/13/2006 8:28 AM CDT D-DIMER Routine 05/13/2006 8:28 AM CDT BASIC METABOLIC PANEL Routine 05/13/2006 8:28 AM CDT documented in this encounter Results * D-DIMER (05/13/2006 8:28 AM CDT) D-DIMER QUANT <0.2 0.0 - 0.5 mcg/mL INTERFACE SYSTEM 05/13/2006 8:28 AM CDT Nikolay Collazo MD HEMATOLOGY ORDERABLES Cheyanne l Result Performing Organization Address [facility] Phone Number INTERFACE SYSTEM Refer to clinic/hospital department * CARDIAC ENZYMES (05/13/2006 8:28 AM CDT) CKMB 0.5 0.0 - 5.0 ng/mL INTERFACE SYSTEM TROPONIN I <0.1 0.0 - 1.5 ng/mL INTERFACE SYSTEM 05/13/2006 8:28 AM CDT Nikolay Collazo MD CHEMISTRY ORDERABLES Final Result Performing Organization Address [facility] Phone Number INTERFACE SYSTEM Refer to clinic/hospital department * (ABNORMAL) BASIC METABOLIC PANEL (05/13/2006 8:28 AM CDT) GLUCOSE 119(H) 70 - 110 mg/dL INTERFACE SYSTEM BUN 10 9 - 20 mg/dL INTERFACE SYSTEM CREATININE 0.8 0.7 - 1.5 mg/dL INTERFACE SYSTEM SODIUM 139 136 - 145 mEq/L INTERFACE SYSTEM POTASSIUM 3.9 3.5 - 5.0 mEq/L INTERFACE SYSTEM CHLORIDE 106 95 - 110 mEq/L INTERFACE SYSTEM CO2 26 22 - 32 mmol/l INTERFACE SYSTEM ANION GAP 11 9 - 20 mEq/L INTERFACE SYSTEM OSMOLALITY, CALCULATED 286 275 - 295 mOsm/Kg INTERFACE SYSTEM CALCIUM 9.2 8.4 - 10.5 mg/dL INTERFACE SYSTEM 05/13/2006 8:28 AM CDT Nikolay Collazo MD CHEMISTRY ORDERABLES Final Result Performing Organization Address [facility] Phone Number INTERFACE SYSTEM Refer to clinic/hospital department * (ABNORMAL) CBC WITH DIFFERENTIAL (05/13/2006 8:28 AM CDT) WBC 7.7 4.5 - 11.0 K/ul INTERFACE SYSTEM RBC 5.03 4.60 - 6.20 Mil/ul INTERFACE SYSTEM HEMOGLOBIN 16.3 14.0 - 18.0 g/dL INTERFACE SYSTEM HEMATOCRIT 46.0 41.0 - 53.0 % INTERFACE SYSTEM MCV 91.5 84.0 - 103.0 Fl INTERFACE SYSTEM MCH 32.4 27.0 - 34.0 pg INTERFACE SYSTEM MCHC 35.4(H) 30.0 - 35.0 g/dL INTERFACE SYSTEM RDW 12.9 11.0 - 14.5 % INTERFACE SYSTEM PLATELETS 223 140 - 440 K/ul INTERFACE SYSTEM MPV 10.8 8.9 - 12.8 Fl INTERFACE SYSTEM NEUTROPHILS 62.3 42.2 - 75.2 % INTERFACE SYSTEM LYMPHOCYTES 27.3 24.0 - 44.0 % INTERFACE SYSTEM MONOCYTES 6.8 2.0 - 10.0 % INTERFACE SYSTEM EOSINOPHILS 2.7 0.0 - 7.0 % INTERFACE SYSTEM BASOPHILS 0.9 0.0 - 1.0 % INTERFACE SYSTEM NEUTROPHIL ABSOLUTE 4.8 2.0 - 8.0 K/uL INTERFACE SYSTEM LYMPHOCYTE ABSOLUTE 2.1 1.2 - 4.0 K/ul INTERFACE SYSTEM MONOCYTE ABSOLUTE 0.5 0.1 - 0.6 K/ul INTERFACE SYSTEM EOSINOPHIL ABSOLUTE 0.2 0.0 - 0.7 K/ul INTERFACE SYSTEM BASOPHILS ABSOLUTE 0.1 0.0 - 0.2 K/ul INTERFACE SYSTEM 05/13/2006 8:28 AM CDT Nikolay Collazo MD HEMATOLOGY ORDERABLES Cheyanne l Result INTERFACE SYSTEM Refer to clinic/hospital department documented in this encounter Visit Diagnoses Diagnosis Chest pain, unspecified- Primary documented in this encounter Care Teams Bath Solution Maker Relationship Specialty Start Date End Date Shiv Yo MD [address] [place] [address] PCP - General Family Practice 06/28/18 documented as of this encounter
--- OUTSIDE RECORDS SUMMARY | 2025-10-02 12:47 | XMS_ITS | Encounter Summary ---
Author Organization [facility] Address [address] [place] [address] Care Team Providers Care Nylon Operator Name Role Phone Shiv Yo MD Primary Care Provider [phone] Encounter Details Date Type Department Care Team (Late st Contact Info) Description 06/12/2007 Emergency [facility] Emergency Department [address] [place] [phone] Augustine Russell DO [address] [place], [place] [phone] Sprain and Strain of Unspecified Site of Knee and Leg (Primary Dx) Social History Tobacco Use Types Packs/Day Years Used Date Smoking Tobacco: Never Assessed Sex and Gender Information Value Date Recorded Sex Assigned at Not on file 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 Mild hypertrophic changes are present surrounding the knee. Subchondral bone appears normal and soft tissues are otherwise unremarkable. Impression: Probable mild osteoarthritic changes. Apparent joint effusion. - Dictated By: Augustine Barrett M.D. Electronically Signed By: Augustine Barrett M.D. Date Signed: 06/12/07 Procedure Note 09/28/2009 A small joint effusion is present. Mild hypertrophic changes are presentsurrounding the knee. Subchondral bone appears normal and soft tissues are otherwiseunremarkable. Impression: Probable mild osteoarthritic changes. Apparent joint effusion. - Dictated By: Augustine Barrett M.D. Electronically Signed By: Augustine Barrett M.D. Date Signed: 06/12/07 us Skip Drake MD DIAGNOSTIC IMAGING ORDERABLES F inal Result documented in this encounter Visit Diagnoses Diagnosis Sprain and strain of unspecified site of knee and leg- Primary documented in this encounter Care Teams Nylon Operator Relationship Specialty Start Date End Date Shiv Yo MD [address], [place] [address] PCP - General Family Practice 06/28/18 documented as of this encounter
--- OUTSIDE RECORDS SUMMARY | 2025-10-02 12:47 | XMS_ITS | Encounter Summary ---
Author Organization [facility] Address [address] [place] [address] Care Team Providers Care Cruise Agent Name Role Phone Shiv Yo MD Primary Care Provider [phone] Encounter Details Date Type Department Care Team (Latest Contact Info) Description 07/18/2007 Outpatient Historical [facility] Orthopedics- 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
--- NOTE | 2025-10-02 13:17 | CTR_ITS ---
PROCEDURE INFORMATION: Exam: CT Abdomen And Pelvis With Contrast Exam date and time: 10/02/2025 2:19 PM Age: 55 years old Clinical indication: Abdominal pain; Additional info: Abd pain TECHNIQUE: Imaging protocol: Computed tomography of the abdomen and pelvis with contrast. Radiation optimization: All CT scans at this facility use at least one of these dose optimization techniques: automated exposure control; mA and/or kV adjustment per patient size (includes targeted exams where dose is matched to clinical indication); or iterative reconstruction. Contrast material: [id number]; Contrast volume: 100 ml; Contrast route: INTRAVENOUS (IV); COMPARISON: CT abdomen pelvis w con* [id number] 09/27/2024 12:24 PM RADIATION DOSE METRICS: Total DLP (mGy-cm): 526.2 FINDINGS: Lungs: Visualized lungs are clear. Pleural spaces: No pleural effusion. Heart: Visualized portions of the heart are mildly enlarged. Liver: Diffuse, markedly decreased attenuation in the liver. Findings are stable and consistent with severe fatty infiltration. Gallbladder and biliary ducts: The patient has had an interval cholecystectomy. No biliary ductal dilatation. Pancreas: The pancreas is unremarkable. No pancreatic ductal dilatation. Spleen: The spleen is unremarkable. Adrenal glands: The right and left adrenal glands are unremarkable. Kidneys and ureters: Stable subcentimeter hypodense foci in both right and left kidneys that are too small to characterize, however likely represent small cysts. The right and left ureters are unremarkable. Stomach and bowel: Ingested contents in the stomach. No dilated loops of bowel. Appendix: Appendix not definitely visualized. No inflammatory changes in the pericecal region however. Intraperitoneal space: No free intraperitoneal air. No ascites. No abscess. No free intraperitoneal air. No ascites. No abscess. Vasculature: Stable moderate to severe vascular calcifications in the abdomen and pelvis, particularly in the iliac arteries. 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 No evidence for aortic aneurysm or aortic dissection. Hepatic veins, portal veins, splenic vein, and SMV are patent. Lymph nodes: No lymphadenopathy. Urinary bladder: Unremarkable as visualized. Reproductive: Stable calcification along the penile shaft. Bones/joints: Degenerative changes in the spine, sacroiliac joints, and hips. Patient has had a previous laminectomy at levels L4 and L5. Left unilateral pars defect at L3-L4 and bilateral pars defects at L5-S1. Osseous findings are stable. Soft tissues: No acute abnormality in the extra-abdominal soft tissues. CT/CT abdomen pelvis w con* [id number] IMPRESSION: 1. Stable severe fatty infiltration of the liver. 2. The patient has had an interval cholecystectomy. 3. Stable moderate to severe vascular calcifications in the abdomen and pelvis, particularly in the iliac arteries. 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 4. Incidental/nonacute findings are listed in the report.
--- NOTE | 2025-10-02 13:23 | W.ED.ABDPA2 ---
HPI - Abdominal Pain General: Chief Complaint: Abdominal Pain Stated Complaint: dr florentino, belly button pain, n/v Time Seen by Provider: 10/02/25 13:16 Source: patient Mode of arrival: ambulatory Limitations: no limitations History of Present Illness: 55-year-old male states been having lower abdominal pains going on for 2 weeks worsened over the last few days. Patient's had some nausea vomiting. He does have a history of cholecystectomy in the past along with appendectomy states has been on Ozempic for 3 months. He denies any fevers pain sharp in nature rates a 7 out of 10 is worse with palpation. Related Data Home Medications ?Medication ?Instructions ?Recorded ?Confirmed gabapentin 800 mg tablet 800 mg PO QID 01/25/20 10/02/25 morphine 60 mg tablet,extended 60 mg PO Q12H 01/25/20 10/02/25 release tamsulosin 0.4 mg capsule (Flomax) 0.4 mg PO DAILY 01/25/20 10/02/25 atorvastatin 40 mg tablet 40 mg PO DAILY 12/04/23 10/02/25 baclofen 10 mg tablet 10 - 20 mg PO TID PRN Muscle Spasm 12/04/23 10/02/25 [id number] 1 tab PO Q4H PRN Pain 12/04/23 10/02/25 50 mg-325 mg-40 mg tablet diclofenac sodium 1 % topical gel 4 g topical QID PRN joint pain 12/04/23 10/02/25 docusate sodium 100 mg capsule 200 mg PO BID 12/04/23 10/02/25 (Colace) famotidine 20 mg tablet 20 mg PO BID 12/04/23 10/02/25 glipizide 10 mg tablet 10 mg PO BID 12/04/23 10/02/25 magnesium oxide 400 mg PO DAILY 12/04/23 10/02/25 metformin 500 mg tablet 1,000 mg PO BID 12/04/23 10/02/25 metoprolol tartrate 25 mg tablet 25 mg PO DAILY 12/04/23 10/02/25 terbinafine HCl 250 mg tablet 250 mg PO DAILY 12/04/23 10/02/25 albuterol sulfate 90 mcg/actuation 2 puff inhalation Q6H PRN 09/27/24 10/02/25 aerosol inhaler Shortness Of Breath amlodipine 10 mg tablet 10 mg PO DAILY 09/27/24 10/02/25 diclofenac sodium 75 mg 75 mg PO BID 09/27/24 10/02/25 tablet,delayed release diphenhydramine HCl 25 mg tablet 25 mg PO TID PRN Itching 09/27/24 10/02/25 fluticasone propionate 50 2 spray intranasal DAILY 09/27/24 10/02/25 mcg/actuation nasal spray,suspension insulin lispro 100 unit/mL See Rx Instructions .Route .COMPLEX 09/27/24 10/02/25 subcutaneous pen lisinopril 5 mg tablet 5 mg PO DAILY 09/27/24 10/02/25 diazepam 5 mg tablet 5 mg PO TID PRN Anxiety 03/16/25 10/02/25 celecoxib 200 mg capsule 200 mg PO DAILY 10/02/25 10/02/25 cholecalciferol (vitamin D3) 125 5,000 mcg feeding tube DAILY 10/02/25 10/02/25 mcg (5,000 unit) tablet finasteride 5 mg tablet 5 mg PO BEDTIME 10/02/25 10/02/25 morphine 30 mg tablet,extended 30 mg PO Q12H 10/02/25 10/02/25 release naloxegol 25 mg tablet (Movantik) 25 mg PO DAILY 10/02/25 10/02/25 semaglutide 1 mg/dose (4 mg/3 mL) 1 mg SUBCUT Q7D 10/02/25 10/02/25 subcutaneous pen injector (Ozempic) Previous Rx's ?Medication ?Instructions ?Recorded fluoxetine 40 mg capsule 40 mg PO QAM #30 caps 06/15/25 prazosin 2 mg capsule 8 mg (4 x 2 mg) PO .QHS #120 caps 06/15/25 quetiapine 50 mg tablet (Seroquel) 50 mg PO BID PRN anxiety #60 tabs 06/15/25 ondansetron 4 mg disintegrating 4 mg PO Q6H PRN nausea and 10/02/25 tablet vomiting #14 tabs Allergies Allergy/AdvReac Type Severity Reaction Status Date / Time Penicillins Allergy Unknown Unknown Verified 10/02/25 12:06 Review of Systems GI: Reports: abdominal pain PFSH ED PFSH: Medical History Nicotine dependence, cigarettes, uncomplicated Psychiatric care Panic disorder without agoraphobia Chronic post-traumatic stress disorder (PTSD) Major depressive disorder, recurrent severe without psychotic features Family History Denies family history of CAD (coronary artery disease) Social History Smoking and tobacco/nicotine status: current every day tobacco/nicotine user Alcohol intake: never Substance/Drug Use: never Physical Exam Const: COMMON NORMALS: no acute distress, patient oriented x3 and healthy appearing HENMT: COMMON NORMALS: normocephalic and atraumatic HEAD & SCALP: normocephalic and atraumatic Neck/C-Spine: COMMON NORMALS: full ROM and supple Chest: COMMONS NORMALS: normal inspection of the chest Resp: COMMON NORMALS: normal respiratory effort Cardio: COMMON NORMALS: regular rate, regular rhythm and No murmurs present (Cardio) RATE: regular rate RHYTHM: regular rhythm GI: COMMON NORMALS: Normal to inspection, nondistended, normoactive bowel sounds present, Soft to palpation and no masses PALPATION: Yes Soft to palpation OTHER: lower abd tenderness Extremity: COMMON NORMALS: normal to inspection and full ROM Neuro: COMMON NORMALS: patient oriented x3, moves all extremities and no focal motor deficits Psych: COMMON NORMALS: mental status grossly normal, Normal thought process present and cooperative THOUGHT PROCESS: Normal thought process present Skin: COMMON NORMALS: no rashes or lesions noted and no wounds GENERAL SKIN EXAM: no rashes or lesions noted Course Vital Signs: Vital signs: Vital Signs Temperature 98.1 F 10/02/25 12:00 Pulse Rate 88 10/02/25 14:05 Respiratory Rate 16 10/02/25 14:03 Blood Pressure 116/78 10/02/25 14:05 Pulse Oximetry 96 10/02/25 14:05 Oxygen Delivery Me thod Room Air 10/02/25 12:00 MDM - Abdominal Pain Medical Decision Making 55-year-old male presented here with abdominal pains been going on for weeks worsening over the last few days. Differential includes hernia, small bowel obstruction. Patient's lab work here showed no significant abnormalities. Did review CT of his abdomen that showed no acute findings. His pain has improved. Likely chronic abdominal pain. Will prescribe him Zofran for home I feel he stable for discharge follow-up PCP return if worsening he understands agrees to plan. Medical Records I reviewed the patient's medical records. Lab Data I reviewed the patient's lab results. 10/02/25 12:16 10/02/25 12:16 Labs/Radiology: Radiology Impressions Abdomen/Pelvis CT 10/02/25 13:17 IMPRESSION: 1. Stable severe fatty infiltration of the liver. 2. The patient has had an interval cholecystectomy. 3. Stable moderate to severe vascular calcifications in the abdomen and pelvis, particularly in the iliac arteries. 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 4. Incidental/nonacute findings are listed in the report. Laboratory Results WBC 11.08 10^3/uL (3.29-11.43) 10/02/25 12:16 RBC 4.91 10^6/uL (3.85-5.65) 10/02/25 12:16 Hgb 15.40 g/dL (11.27-16.99) 10/02/25 12:16 Hct 46.6 % (37-53) 10/02/25 12:16 MCV 94.9 fl (82-101) 10/02/25 12:16 MCH 31.4 pg (27-33) 10/02/25 12:16 MCHC 33.0 g/dL (30-55) 10/02/25 12:16 RDW 12.6 % (12.1-15.1) 10/02/25 12:16 Plt Count 205 10^3/cmm (157-399) 10/02/25 12:16 MPV 9.7 fL (7.4-10.4) 10/02/25 12:16 Neut % (Auto) 70.4 % 10/02/25 12:16 Lymph % (Auto) 21.4 % 10/02/25 12:16 [place] % (Auto) 5.1 % 10/02/25 12:16 Eos % (Auto) 2.2 % 10/02/25 12:16 Baso % (Auto) 0.5 % 10/02/25 12:16 Neut # (Auto) 7.81 10^3/uL (1.8-7.7) H 10/02/25 12:16 Lymph # (Auto) 2.4 10^3/uL (0.8-4.8) 10/02/25 12:16 [place] # (Auto) 0.6 10^3/uL (0.2-0.9) 10/02/25 12:16 Eos # (Auto) 0.2 10^3/uL (0.0-0.8) 10/02/25 12:16 Baso # (Auto) 0.1 10^3/uL (0.0-0.1) 10/02/25 12:16 Nucleated RBC % (auto) 0 % 10/02/25 12:16 Nucleated RBCs # 0.0 /100WBC 10/02/25 12:16 Sodium 137 mmol/L (136-145) 10/02/25 12:16 Potassium 4.2 mmol/L (3.5-5.1) 10/02/25 12:16 Chloride 101 mmol/L (98-107) 10/02/25 12:16 Carbon Dioxide 26 mmol/L (22-29) 10/02/25 12:16 Anion Gap 14.2 (5-19) 10/02/25 12:16 BUN 10 mg/dL (6-20) 10/02/25 12:16 Creatinine 0.6 mg/dL (0.7-1.2) L 10/02/25 12:16 GFR Calculation 139.9 mL/min (90-130) H 10/02/25 12:16 Glucose 163 mg/dL (65-115) H 10/02/25 12:16 Calculated Osmolality 287 mOsm/kg (285-295) 10/02/25 12:16 Calcium 9.0 mg/dL (8.5-10.5) 10/02/25 12:16 Total Bilirubin 0.3 mg/dL (0.15-1.2) 10/02/25 12:16 AST 23 U/L (0-40) 10/02/25 12:16 ALT 28 U/L (0-41) 10/02/25 12:16 Alkaline Phosphatase 84 U/L (40-130) 10/02/25 12:16 Total Protein 6.4 g/dL (6.6-8.7) L 10/02/25 12:16 Albumin 3.8 g/dL (3.5-5.2) 10/02/25 12:16 Globulin 2.6 g/dL (1.3-4.6) 10/02/25 12:16 Lipase 63 U/L (13-60) H 10/02/25 12:16 All radiology interpretation(s) finalized by discharge Discharge Plan Discharge Patient Disposition: Home Clinical Impression: Abdominal pain Condition: Stable Prescriptions: New ondansetron 4 mg tablet,disintegrating 4 mg PO Q6H PRN (Reason: nausea and vomiting) Qty: 14 0RF No Action morphine 60 mg tablet extended release 60 mg PO Q12H gabapentin 800 mg tablet 800 mg PO QID tamsulosin [Flomax] 0.4 mg capsule 0.4 mg PO DAILY fluoxetine 40 mg capsule 40 mg PO QAM Qty: 30 4RF prazosin 2 mg capsule 8 mg PO .QHS Qty: 120 3RF quetiapine [Seroquel] 50 mg tablet 50 mg PO BID PRN (Reason: anxiety) Qty: 60 3RF celecoxib 200 mg capsule 200 mg PO DAILY finasteride 5 mg tablet 5 mg PO BEDTIME cholecalciferol (vitamin D3) 125 mcg (5,000 unit) tablet 5,000 mcg feeding tube DAILY Movantik 25 mg tablet 25 mg PO DAILY Ozempic 1 mg/dose (4 mg/3 mL) pen injector 1 mg SUBCUT Q7D Rx Instructions: Wed morphine 30 mg tablet extended release 30 mg PO Q12H glipizide 10 mg tablet 10 mg PO BID metoprolol tartrate 25 mg tablet 25 mg PO DAILY metformin 500 mg tablet 1,000 mg PO BID [id number]-almp 50-325-40 mg tablet 1 tab PO Q4H PRN (Reason: Pain) terbinafine HCl 250 mg tablet 250 mg PO DAILY famotidine 20 mg tablet 20 mg PO BID baclofen 10 mg tablet 10 - 20 mg PO TID PRN (Reason: Muscle Spasm) docusate sodium [Colace] 100 mg Capsule 200 mg PO BID diclofenac sodium 1 % gel 4 g TOPICAL QID PRN (Reason: joint pain) magnesium oxide 400 mg magnesium Tablet 400 mg PO DAILY atorvastatin 40 mg tablet 40 mg PO DAILY diazepam 5 mg tablet 5 mg PO TID PRN (Reason: Anxiety) amlodipine 10 mg Tablet 10 mg PO DAILY diclofenac sodium 75 mg tablet,delayed release (DR/EC) 75 mg PO BID lisinopril 5 mg Tablet 5 mg PO DAILY albuterol sulfate 90 mcg/actuation HFA aerosol inhaler 2 puff INHALATION Q6H PRN (Reason: Shortness Of Breath) fluticasone propionate 50 mcg/actuation spray,suspension 2 spray INTRANASAL DAILY insulin lispro 100 unit/mL Insulin Pen See Rx Instructions .ROUTE .COMPLEX Rx Instructions: For blood sugar inject 4 units sq 200-250 6 units 251-300 8 units 301-350 as needed diphenhydramine HCl [Diphenadryl] 25 mg Tablet 25 mg PO TID PRN (Reason: Itching) Discharge Orders: Discharge ED (Routine); Ordered 10/02/25 Ordered By: Luis Vee Referrals: Girish Yo DO [Primary Care Provider] - 4-7 days Discharge Diet: Advance as tolerated Discharge Activity: Resume usual activity Patient Instructions: Abdominal Pain (ED) Print Language: Kiswahili Coding Level of Care Code ED [employer] Development Manager for [facility]
[2025-10-02 14:03] VITALS: RESP 16; O2SAT 95
[2025-10-02] MEDS: ondansetron 2 mg/ML SDV 2 mL 4 MG IVP (14:03)
[2025-10-02] MEDS: morphine 4 mg/mL SDV 1 mL IVP (14:03)
[2025-10-02 14:05] VITALS: BP 116/78; PULSE 88; O2SAT 96
[2025-10-02] MEDS: iohexol 350 mg/mL 500 mL Btl (per mL) IV (14:41)
== END 2025-10-02 15:20 | disposition home or self-care (01) ==
PROVIDERS: Emergency Provider Emergency Medicine; PCP Family Medicine
DX: R10.30 Lower abdominal pain, unspecified (principal); Z79.4 Long term (current) use of insulin; Z79.84 Long term (current) use of oral hypoglycemic drugs; Z72.0 Tobacco use
CPT/HCPCS: 36415; 74177; 80053; 83690; 85025; 96374; 96375; 99285; J2270; J2405